=== PATIENT | female | born 1965 | race Caucasian/White ===

== ENCOUNTER 2017-01-05 09:58 | Inpatient (IN) | payer MEDICAID, OTHER ==
[2017-01-05 11:16] LABS: BASO % 0.4 % (0.0-2.0); EOS # 0.6 K/uL (0.0-0.7); HEMATOCRIT 38.9 % (34.0-47.0); LYMPH # 1.5 K/uL (1.0-4.3); LYMPH % 14.8 % (20.0-40.0); MEAN CORPUSCULAR HEMOGLOBIN 28.9 pg (27.0-31.0); MEAN CORPUSCULAR HGB CONC 31.7 g/dL (33.0-37.0); MEAN PLATELET VOLUME 9.4 fL (7.2-11.7); MONO # 0.7 K/uL (0.0-0.8); MONO % 6.8 % (0.0-10.0); RED CELL DISTRIBUTION WIDTH 14.2 % (11.5-14.5); WHITE BLOOD COUNT 9.8 K/uL (4.8-10.8)
[2017-01-05 11:17] LABS: MEAN CELL VOLUME 91.1 fL (81.0-99.0)
[2017-01-05 11:40] LABS: TROPONIN I 0.024 ng/mL (0.00-0.120)
[2017-01-05 11:44] LABS: ALB/GLOB RATIO 1.4 (1.0-2.1); BILIRUBIN,TOTAL 0.9 mg/dL (0.2-1.3); CALCIUM 9.2 mg/dl (8.6-10.4); POTASSIUM 5.8 mmol/L (3.6-5.2); TOTAL PROTEIN 6.6 g/dL (6.3-8.3)
--- NOTE | 2017-01-05 12:33 | C.PDOC ---
History Of Present Illness 51 yr old female presents with complaints of SOB, worse with exertion and laying flat for the past 1 week. Patient reports last hemodialysis was 9 days ago in [place]. Patient states she came to visit her mother in the [place] who is sick, and because of that she has not been dialyzed. Patient also reports of pressure in her chest. Patient denies fever/chills, cough, nausea, vomiting, diarrhea, abdominal pain. Time Seen by Provider: 01/05/17 10:55 Chief Complaint (Nursing): Shortness Of Breath History Per: Patient History/Exam Limitations: no limitations Onset/Duration Of Symptoms: Days (1 week) Current Symptoms Are (Timing): Still Present Current Respiratory Medications: See Home Med List Severity: Moderate Past Medical History Reviewed: Historical Data, Nursing Documentation, Vital Signs Vital Signs: Last Vital Signs Temp 98 F 01/08/17 18:45 Pulse 79 01/08/17 18:45 Resp 16 01/08/17 18:45 BP 124/90 01/08/17 18:45 Pulse Ox 97 01/08/17 18:45 - Medical History PMH: HTN, End Stage Renal Disease, Chronic Kidney Disease - [facility] Procedures DILATION OF LEFT CEPHALIC VEIN, PERCUTANEOUS APPROACH (11/22/15) PERFORMANCE OF URINARY FILTRATION, MULTIPLE (11/22/15) Family History: States: No Known Family Hx - Social History Hx Alcohol Use: No Hx Substance Use: No - Immunization History Hx Tetanus Toxoid Vaccination: No Hx Influenza Vaccination: No Hx Pneumococcal Vaccination: No Review Of Systems Except As Marked, All Systems Reviewed And Found Negative. Constitutional: Negative for: Fever, Chills Cardiovascular: Positive for: Edema, Other ((+) Chest pressure) Respiratory: Positive for: Shortness of Breath. Negative for: Cough Gastrointestinal: Negative for: Nausea, Vomiting, Abdominal Pain, Diarrhea Neurological: Negative for: Weakness, Numbness Physical Exam - Physical Exam Appears: Well, Non-toxic, Other ((+) Speaking in short sentences) Skin: Warm, Dry, No Rash Head: Normacephalic Oral Mucosa: Moist Cardiovascular: Rhythm Regular Respiratory: Rales (at bases B/L ), No Rhonchi, No Wheezing Gastrointestinal/Abdominal: Normal Exam, Bowel Sounds, Soft, No Tenderness Extremity: Normal ROM, No Pedal Edema, No Calf Tenderness, No Swelling Neurological/Psych: Oriented x3 ED Course And Treatment - Laboratory Results Result Diagrams: 01/08/17 08:51 01/08/17 08:51 ECG: Interpreted By Me, Viewed By Me ECG Rhythm: Sinus Rhythm ECG Interpretation: Abnormal Interpretation Of ECG: Normal axis. Q wave 3, V2 and V3. No ST changes. Rate From EC (BPM) O2 Sat by Pulse Oximetry: 100 (RA) Pulse Ox Interpretation: Normal - Radiology CXR: Interpreted by Me, Viewed By Me CXR Interpretation: Yes: Other ((+) Mild pulmonary congestion. No effusions.). No: Infiltrates Progress Note: PLAN: Blood work CXR, EKG, ordered and reviewed. Patient still makes urine, IV Lasix ordered for fluid overload. 12:55pm- Spoke with Dr. Aranda ([facility]), will speak to dialysis nurse to have patient dialyzed. - Physician Consult Information Physician Contacted: Faiza Connelly Outcome Of Conversation: Discussed patient with hospitalist, agrees with admission to their service for ESRD on HD needing dialysis, fluid overload, chf. Disposition - Disposition Disposition: HOSPITALIZED Disposition Time: 13:07 Condition: FAIR - Clinical Impression Clinical Impression: Fluid overload, ESRD (end stage renal disease) on dialysis - Scribe Statement The provider has reviewed the documentation as recorded by the Siddharthe Elvia Deleon Provider Attestation: All medical record entries made by the Wallyibe were at my direction and personally dictated by me. I have reviewed the chart and agree that the record accurately reflects my personal performance of the history, physical exam, medical decision making, and the department course for this patient. I have also personally directed, reviewed, and agree with the discharge instructions and disposition. Decision To Admit - Pt Status Changed To: Hospital Disposition Of: Inpatient - Admit Certification Admit to Inpatient:: After my assessment, the patient will require hospitalization for at least two midnights. This is because of the severity of symptoms shown, intensity of services needed, and/or the medical risk in this patient being treated as an outpatient. - InPatient: Physician Admission Certification: I certify that this patient requires 2 or more midnights of care for the following reason:: see notes - . Bed Request Type: Telemetry Admitting Physician: Faiza Connelly Patient Diagnosis: ESRD (end stage renal disease) on dialysis, Fluid overload
--- NOTE | 2017-01-05 14:02 | RAD ---
PROCEDURE: CHEST RADIOGRAPH, 1 VIEW HISTORY: SOB COMPARISON: Comparison made with chest radiograph 11/22/2015. FINDINGS: LUNGS: Poor inspiration with low lung volumes, crowded bronchovascular markings and minor bibasilar atelectasis. . Central pulmonary vasculature is minimally increased are also felt to be secondary to poor inspiration. PLEURA: No pneumothorax or pleural fluid seen. CARDIOVASCULAR: Normal. OSSEOUS STRUCTURES: Note made of small calcific density within the soft tissues adjacent to greater tuberosity left humerus consistent with calcific tendinitis. VISUALIZED UPPER ABDOMEN: Visualized upper abdomen appears unremarkable. OTHER FINDINGS: None. IMPRESSION: Poor inspiration with low lung volumes, crowded bronchovascular markings and minor bibasilar atelectasis.
--- NOTE | 2017-01-05 16:32 | CP.PCM.HP ---
<Augusta Pimentel - Last Filed: 01/05/17 18:23> History of Present Illness - History of Present Illness History of Present Illness: HPI: Patient is a 51 year old female with a history of "resolved htn", who presents to the ED with complaints of shortness of breath, chest pain with breathing, weakness, and leg pain/swelling for three days. She also reports she felt feverish and nausea last night. Patient also reports having decreased appetite because she feels full. Patient is on dialysis TTS, but has missed 9 days due to traveling (returned from [place] week ago and was in [place] visiting family ). Patient currently denies having abdominal pain, nausea, vomiting, fevers, and headaches. PMD: none PMHx: resolved HTN ("used to have HTN, but not anymore") SurgHx: fibroma 2002, appendectomy, hysterectomy FamHx: Mother- ESRD/dialysis, renal cysts, DM, HTN; Aunt/Uncle- " from renal problems" SocHx: denies tobacco, alcohol, and drug use Allergies: aspirin (throat swells) Medications: denies Present on Admission - Present on Admission Any Indicators Present on Admission: No Review of Systems - Constitutional Constitutional: Fever, Lethargy, Weakness. absent: Headache - EENT Ears: absent: Dizziness - Cardiovascular Cardiovascular: Chest Pain, Leg Edema. absent: Palpitations - Respiratory Respiratory: Dyspnea, Pain on Inspiration. absent: Cough, Excessive Mucous Production - Gastrointestinal Gastrointestinal: Nausea. absent: Abdominal Pain, Constipation, Diarrhea, Vomiting - Genitourinary Genitourinary: absent: Change in Urinary Stream - Neurological Neurological: Weakness. absent: Dizziness, Headaches - Endocrine Endocrine: absent: Fatigue, Palpitations Past Patient History - Infectious Disease Hx of Infectious Diseases: None - Past Medical History & Family History Past Medical History?: Yes - Past Social History Smoking Status: Never Smoked - CARDIAC Hx Hypertension: Yes - PULMONARY Hx Respiratory Disorders: No - NEUROLOGICAL Hx Neurological Disorder: No - HEENT Hx HEENT Problems: No - RENAL Hx Chronic Kidney Disease: Yes - ENDOCRINE/METABOLIC Hx Endocrine Disorders: No - HEMATOLOGICAL/ONCOLOGICAL Hx Blood Disorders: No - INTEGUMENTARY Hx Dermatological Problems: No - MUSCULOSKELETAL/RHEUMATOLOGICAL Hx Musculoskeletal Disorders: No Hx Falls: No - GASTROINTESTINAL Hx Gastrointestinal Disorders: No - GENITOURINARY/GYNECOLOGICAL Hx Genitourinary Disorders: No - PSYCHIATRIC Hx Substance Use: No - SURGICAL HISTORY Hx Surgeries: Yes Hx Hysterectomy: Yes - ANESTHESIA Hx Anesthesia: Yes Hx Anesthesia Reactions: No Hx Malignant Hyperthermia: No Meds Allergies/Adverse Reactions: Allergies Allergy/AdvReac Type Severity Reaction Status Date / Time aspirin Allergy Verified 01/05/17 10:07 Physical Exam - Constitutional Appears: No Acute Distress - Head Exam Head Exam: ATRAUMATIC, NORMAL INSPECTION - Eye Exam Eye Exam: EOMI, Normal appearance, PERRL - ENT Exam ENT Exam: Mucous Membranes Moist - Respiratory Exam Respiratory Exam: Clear to Auscultation Bilateral, NORMAL BREATHING PATTERN. absent: Rales, Rhonchi, Wheezes, Respiratory Distress - Cardiovascular Exam Cardiovascular Exam: REGULAR RHYTHM, +S1, +S2 - GI/Abdominal Exam GI & Abdominal Exam: Normal Bowel Sounds, Soft. absent: Distended, Firm, Tenderness - Extremities Exam Extremities exam: Positive for: pedal edema, pedal pulses present. Negative for : calf tenderness, tenderness Additional comments: AV fistula LUE - Neurological Exam Neurological exam: Alert, Oriented x3 - Psychiatric Exam Psychiatric exam: Normal Affect, Normal Mood - Skin Skin Exam: Dry, Intact, Normal Color, Warm Results - Vital Signs Recent Vital Signs: Last Vital Signs Temp 98 F 01/05/17 16:22 Pulse 71 01/05/17 16:22 Resp 18 01/05/17 16:22 BP 161/91 H 01/05/17 16:22 Pulse Ox 96 01/05/17 16:22 - Labs Result Diagrams: 01/05/17 11:05 01/05/17 11:05 Labs: Laboratory Results - last 24 hr 01/05/17 01/05/17 01/05/17 11:05 11:05 11:05 WBC 9.8 RBC 4.27 Hgb 12.3 Hct 38.9 MCV 91.1 D MCH 28.9 MCHC 31.7 L RDW 14.2 Plt Count 207 MPV 9.4 Neut % (Auto) 72.0 Lymph % (Auto) 14.8 L Carson % (Auto) 6.8 Eos % (Auto) 6.0 H Baso % (Auto) 0.4 Neut # 7.1 H Lymph # 1.5 Carson # 0.7 Eos # 0.6 Baso # 0.0 PT 11.4 INR 1.0 APTT 36 H Sodium 135 Potassium 5.8 H Chloride 102 Carbon Dioxide 14 L Anion Gap 24 H BUN 137 H* D Creatinine 18.9 H* Est GFR ( Amer) 2 Est GFR (Non-Af Amer) 2 Random Glucose 80 Calcium 9.2 Total Bilirubin 0.9 AST 24 ALT 20 Alkaline Phosphatase 376 H Total Creatine Kinase 50 CK-MB (Mass) 1.68 Troponin I 0.0240 NT-Pro-B Natriuret Pep 9960 H Total Protein 6.6 Albumin 3.8 Globulin 2.8 Albumin/Globulin Ratio 1.4 Assessment & Plan (1) End stage renal failure on dialysis Assessment and Plan: Patient scheduled for stat dialysis Follow up repeat labs post-dialysis BUN/Cr on admission: 137/18.9 Hyperkalemic, f/u repeat labs K+ on admission 5.8 Nephrology consulted- Dr. Smallwood, help appreciated Status: Acute (2) Chest pain Assessment and Plan: On Telemetry EKG: f/u results CXR: poor inspiration with low lung volumes, crowded bronchovascular marking and minor bibasilar atelectasis Troponin x1: negative F/u troponins x2 CKMB 1.68, CK 50, BNP 9960 Status: Acute (3) Prophylactic measure Assessment and Plan: SCDs Heparin 5000sc q8 Pepcid 20mg PO daily Heart healthy, renal diet Status: Acute <Faiza Connelly - Last Filed: 01/05/17 20:14> Results - Vital Signs Recent Vital Signs: Last Vital Signs Temp 97.5 F L 01/05/17 17:55 Pulse 93 H 01/05/17 19:36 Resp 20 01/05/17 19:36 BP 145/81 01/05/17 19:36 Pulse Ox 99 01/05/17 19:36 - Labs Result Diagrams: 01/05/17 11:05 01/05/17 11:05 Labs: Laboratory Results - last 24 hr 01/05/17 01/05/17 01/05/17 11:05 11:05 11:05 WBC 9.8 RBC 4.27 Hgb 12.3 Hct 38.9 MCV 91.1 D MCH 28.9 MCHC 31.7 L RDW 14.2 Plt Count 207 MPV 9.4 Neut % (Auto) 72.0 Lymph % (Auto) 14.8 L Carson % (Auto) 6.8 Eos % (Auto) 6.0 H Baso % (Auto) 0.4 Neut # 7.1 H Lymph # 1.5 Carson # 0.7 Eos # 0.6 Baso # 0.0 PT 11.4 INR 1.0 APTT 36 H Sodium 135 Potassium 5.8 H Chloride 102 Carbon Dioxide 14 L Anion Gap 24 H BUN 137 H* D Creatinine 18.9 H* Est GFR ( Amer) 2 Est GFR (Non-Af Amer) 2 Random Glucose 80 Calcium 9.2 Total Bilirubin 0.9 AST 24 ALT 20 Alkaline Phosphatase 376 H Total Creatine Kinase 50 CK-MB (Mass) 1.68 Troponin I 0.0240 NT-Pro-B Natriuret Pep 9960 H Total Protein 6.6 Albumin 3.8 Globulin 2.8 Albumin/Globulin Ratio 1.4 Attending/Attestation - Attestation I have personally seen and examined this patient.: Yes I have fully participated in the care of the patient.: Yes I have reviewed all pertinent clinical information: Yes Notes (Text): Seen and examined 1.acute pulmonary edema 2.Hyperkalemia 3.ESRD on HD 01/05/17 20:13
[2017-01-06] MEDS ORDERED: Tramadol 25 mg PO STA ×2 (00:55→19:08)
--- NOTE | 2017-01-06 00:57 | CON ---
ATTENDING PHYSICIAN: Dr. Connelly. HISTORY OF PRESENT ILLNESS: Ms. Cook is a 51-year-old female who is being seen for management of dialysis dependent renal failure. Ms. Cook has a history of polycystic kidney disease and hypertension who became dialysis dependent approximately 2 years ago. She was in the [place] and was visiting in [place] and her last treatment was approximately 2 weeks ago. Over the last several days, she has had increasing shortness of breath, anterior pleuritic sharp chest pain and intermittent nausea with no vomiting. She came to the emergency room this morning and was admitted. Her white count was 9800, hemoglobin 12.3, hematocrit 38.9, platelet count 207,000. Sodium 135, potassium 5.8, chloride 102, BUN 137, creatinine 18.9, calcium 9.2, total bili 0.9, AST of 24, ALT of 20, alk phos of 376, CPK of 50, CPK-MB 1.68, troponin 0.0240 and BNP of 9960. Albumin 3.8. Chest x-ray shows poor inspiration, low lung volumes, crowded bronchial vascular markings, and minor bibasilar atelectasis. PAST MEDICAL HISTORY: Please see the above. She denies myocardial infarction, stroke, or diabetes. She does have a history of recurrent renal calculi that preceded her dialysis. She denied hepatitis or HIV. ALLERGIES: SHE HAS AN ALLERGY TO ASPIRIN WHICH CAUSES A SHORTNESS OF BREATH AND THROAT SWELLING. She has been admitted to [facility] in the past. MEDICATIONS: She takes no medications. FAMILY HISTORY: Positive for polycystic kidney disease, hypertension, and end-stage renal disease. SOCIAL HISTORY: Negative for alcohol or drug abuse. She does not smoke. REVIEW OF SYSTEMS: Please see the above. She denied cough or hemoptysis. She does have intermittent upper abdominal pain and flank pain. She denies recent stone passage, told that her last stone passage was several months ago. She denies dysuria or gross hematuria at present. She has continuous bilateral hip and knee pain which she has told it is related to her dialysis. PHYSICAL EXAMINATION GENERAL: She is awake, alert, and in no acute distress. VITAL SIGNS: Her temperature was 98, blood pressure was 161/91 and pulse was 71. NECK: There was no jugular venous distention at 30 degrees. LUNGS: Clear. HEART: Rhythm is regular with grade 1 to 2/6 systolic ejection murmur throughout. ABDOMEN: Soft. She had right upper quadrant tenderness. There was no definite kidney or liver felt. EXTREMITIES: There was no presacral edema. There was 1 to 2+ leg edema. She moved all her extremities. IMPRESSION: End-stage renal disease, polycystic kidney disease, congestive heart failure, and uremic syndrome probable secondary hypoparathyroidism and renal osteodystrophy. RECOMMENDATIONS: We will schedule for slow dialysis this evening. We will follow up with dialysis on 01/06 with increased pump speed and ultrafiltration. Thank you for your kind referral. We will continue to follow with you. Dennis Aranda MD
[2017-01-06 08:42] LABS: BASO % 0.6 % (0.0-2.0); EOS # 0.6 K/uL (0.0-0.7); EOS % 7.5 % (0.0-4.0); HEMATOCRIT 38.9 % (34.0-47.0); LYMPH # 1.8 K/uL (1.0-4.3); LYMPH % 24.1 % (20.0-40.0); MEAN CELL VOLUME 89.8 fL (81.0-99.0); MEAN CORPUSCULAR HEMOGLOBIN 28.7 pg (27.0-31.0); MEAN PLATELET VOLUME 9.3 fL (7.2-11.7); MONO # 0.6 K/uL (0.0-0.8); MONO % 7.8 % (0.0-10.0); RED CELL DISTRIBUTION WIDTH 14.5 % (11.5-14.5); WHITE BLOOD COUNT 7.5 K/uL (4.8-10.8)
--- NOTE | 2017-01-06 09:41 | CP.PCM.PN ---
<Augusta Pimentel - Last Filed: 01/06/17 13:18> Subjective - Date & Time of Evaluation Date of Evaluation: 01/06/17 Time of Evaluation: 09:41 - Subjective Subjective: Medicine progress note with Dr. Keith Patient was seen and examined at bedside. Patient was sleeping when entered room. Patient reports feeling short of breath and pain with inspiration, nausea and a headache. Patient also stated the light bothered her and she was a little dizzy. Patient then vomited 2-3 times and reports having chest discomfort while vomiting. As vomiting subsided, chest discomfort resolved. Patient was given Zofran. Patient was revisited shortly after and reports feeling better, less nausea and headache was reduced. Patient was eating breakfast without difficulty. Patient denies having palpitations, abdominal pain, fevers, and changes in vision. Objective - Vital Signs/Intake and Output Vital Signs (last 24 hours): Temp Pulse Resp BP Pulse Ox 97.9 F 77 20 154/91 H 94 L 01/06/17 08:51 01/06/17 08:51 01/06/17 08:51 01/06/17 09:33 01/06/17 08:51 Intake and Output: 01/06/17 01/06/17 06:59 18:59 Intake Total 120 Balance 120 - Medications Medications: Current Medications Famotidine (Pepcid) 20 mg PO DAILY [facility] Heparin Sodium (Porcine) (Heparin) 5,000 units SC Q8 [facility] Last Admin: 01/06/17 05:55 Dose: 5,000 units Pneumococcal Polyvalent Vaccine (Pneumovax 23 Vaccine) 0.5 ml IM .ONCE ONE Stop: 01/08/17 10:01 - Labs Labs: 01/06/17 08:38 01/05/17 11:05 PT 11.4 SECONDS (9.7-12.2) 01/05/17 11:05 INR 1.0 01/05/17 11:05 APTT 36 SECONDS (21-34) H 01/05/17 11:05 - Additional Findings Additional findings: - Constitutional Appears: No Acute Distress - Head Exam Head Exam: ATRAUMATIC, NORMAL INSPECTION - Eye Exam Eye Exam: EOMI, Normal appearance, PERRL - ENT Exam ENT Exam: Mucous Membranes Moist - Respiratory Exam Respiratory Exam: Clear to Auscultation Bilateral, NORMAL BREATHING PATTERN. absent: Rales, Rhonchi, Wheezes, Respiratory Distress - Cardiovascular Exam Cardiovascular Exam: REGULAR RHYTHM, +S1, +S2 - GI/Abdominal Exam GI & Abdominal Exam: Normal Bowel Sounds, Soft. absent: Distended, Firm, Tenderness - Extremities Exam Extremities exam: Positive for: pedal edema, pedal pulses present. Negative for : calf tenderness, tenderness Additional comments: AV fistula LUE - Neurological Exam Neurological exam: Alert, Oriented x3 - Psychiatric Exam Psychiatric exam: Normal Affect, Normal Mood - Skin Skin Exam: Dry, Intact, Normal Color, Warm Assessment and Plan (1) End stage renal failure on dialysis Status: Acute (2) Chest pain Status: Acute (3) Prophylactic measure Status: Acute - Assessment and Plan (Free Text) Plan: (1) End stage renal failure on dialysis Assessment and Plan: Patient scheduled for stat dialysis Follow up repeat labs post-dialysis BUN/Cr on admission: 137/18.9 Hyperkalemic, K+ on admission 5.8 Nephrology consulted- Dr. Smallwood, help appreciated Repeat labs showed: BUN 76, Cr 13.4, K 4.9. Started Phoslo 667mg PO BIDCC Patient scheduled for dialysis again today, 01/06/17 Status: Acute (2) Chest pain Assessment and Plan: On Telemetry EKG: NSR@69bpm; septal infarct, age undetermined; pending official report CXR (01/05/17): poor inspiration with low lung volumes, crowded bronchovascular marking and minor bibasilar atelectasis Troponin x3: negative CKMB 1.68, CK 50, BNP 9960 Status: Acute (3) HTN Assessment and Plan: Patient reports having a hx of HTN, but not currently/doesn't take medications for HTN. Patient is currently hypertensive Started Norvasc 5mg PO daily Monitor Vitals (4) Short of breath Assessment and Plan: CXR (01/05/17): poor inspiration with low lung volumes, crowded bronchovascular marking and minor bibasilar atelectasis Repeat CXR on 01/07/17: f/u results O2 via nasal cannula as needed (5) Prophylactic measure Assessment and Plan: SCDs Heparin 5000sc q8 Pepcid 20mg PO daily Heart healthy, renal diet PT/OT <Jeyson Keith - Last Filed: 01/06/17 15:42> Objective - Vital Signs/Intake and Output Vital Signs (last 24 hours): Temp Pulse Resp BP Pulse Ox 97.6 F 71 16 136/89 94 L 01/06/17 15:00 01/06/17 13:55 01/06/17 13:55 01/06/17 15:00 01/06/17 08:51 Intake and Output: 01/06/17 01/06/17 06:59 18:59 Intake Total 120 Balance 120 - Medications Medications: Current Medications Amlodipine Besylate (Norvasc) 5 mg PO DAILY [facility] Last Admin: 01/06/17 12:58 Dose: 5 mg Calcium Acetate (Phoslo) 667 mg PO BIDCC [facility] Famotidine (Pepcid) 20 mg PO DAILY [facility] Last Admin: 01/06/17 09:57 Dose: 20 mg Heparin Sodium (Porcine) (Heparin) 5,000 units SC Q8 [facility] Last Admin: 01/06/17 13:04 Dose: 5,000 units Pneumococcal Polyvalent Vaccine (Pneumovax 23 Vaccine) 0.5 ml IM .ONCE ONE Stop: 01/08/17 10:01 - Labs Labs: 01/06/17 08:38 01/06/17 08:38 PT 11.4 SECONDS (9.7-12.2) 01/05/17 11:05 INR 1.0 01/05/17 11:05 APTT 36 SECONDS (21-34) H 01/05/17 11:05 Attending/Attestation - Attestation I have personally seen and examined this patient.: Yes I have fully participated in the care of the patient.: Yes I have reviewed all pertinent clinical information, including history, physical exam and plan: Yes Notes (Text): 01/06/17 15:42 Medical attending: Patient was seen and examined by me, agrees the above note by medical scheduler. Family member was present at bedside as well. Patient was okay with this. When I saw her she was not under any acute distress. As documented above in the resident note the patient has end-stage renal disease and she is [place] this country from [place]. She has not had hemodialysis in 9 days before coming to the hospital yesterday. She had one hemodialysis treatment yesterday. She's will hopefully get another hemodialysis treatment again today. She tells us that she feels better after hemodialysis yesterday, however she still short of breath Thank you very much, Jeyson Keith
[2017-01-06 09:49] LABS: ALB/GLOB RATIO 0.9 (1.0-2.1); BILIRUBIN,TOTAL 0.5 mg/dL (0.2-1.3); CALCIUM 8.6 mg/dl (8.6-10.4); POTASSIUM 4.9 mmol/L (3.6-5.2); TOTAL PROTEIN 6.6 g/dL (6.3-8.3)
--- NOTE | 2017-01-06 11:42 | CP.PCM.PN ---
Subjective - Date & Time of Evaluation Date of Evaluation: 01/06/17 Time of Evaluation: 11:40 - Subjective Subjective: stable dialysis 01/05 still with nausea, vomiting; BP moderately elevated Objective - Vital Signs/Intake and Output Vital Signs (last 24 hours): Temp Pulse Resp BP Pulse Ox 97.9 F 77 20 154/91 H 94 L 01/06/17 08:51 01/06/17 08:51 01/06/17 08:51 01/06/17 09:33 01/06/17 08:51 Intake and Output: 01/06/17 01/06/17 06:59 18:59 Intake Total 120 Balance 120 - Medications Medications: Current Medications Famotidine (Pepcid) 20 mg PO DAILY [facility] Last Admin: 01/06/17 09:57 Dose: 20 mg Heparin Sodium (Porcine) (Heparin) 5,000 units SC Q8 [facility] Last Admin: 01/06/17 05:55 Dose: 5,000 units Pneumococcal Polyvalent Vaccine (Pneumovax 23 Vaccine) 0.5 ml IM .ONCE ONE Stop: 01/08/17 10:01 - Labs Labs: 01/06/17 08:38 01/06/17 08:38 PT 11.4 SECONDS (9.7-12.2) 01/05/17 11:05 INR 1.0 01/05/17 11:05 APTT 36 SECONDS (21-34) H 01/05/17 11:05 - Constitutional Appears: No Acute Distress, Chronically Ill - Head Exam Head Exam: ATRAUMATIC, NORMAL INSPECTION - Eye Exam Eye Exam: EOMI, Normal appearance - Neck Exam Neck Exam: Normal Inspection. absent: Tenderness - Respiratory Exam Respiratory Exam: Clear to Ausculation Bilateral, NORMAL BREATHING PATTERN - Cardiovascular Exam Cardiovascular Exam: REGULAR RHYTHM, +S1 - GI/Abdominal Exam GI & Abdominal Exam: Soft. absent: Tenderness - Extremities Exam Extremities Exam: Normal Inspection. absent: Tenderness - Neurological Exam Neurological Exam: Alert, CN II-XII Intact - Skin Skin Exam: Dry, Warm Assessment and Plan (1) ADPKD (autosomal dominant polycystic kidney) Status: Acute (2) End stage renal failure on dialysis Status: Acute (3) HTN (hypertension) Status: Acute - Assessment and Plan (Free Text) Plan: repeat dialysis
[2017-01-06 13:37] LABS: PHOSPHOROUS 5.9 mg/dL (2.5-4.5)
--- NOTE | 2017-01-06 17:58 | CARD ---
APPROVED REPORT EKG Measurement Heart [id number] <Conclusion> Normal sinus rhythm with sinus arrhythmia Septal infarct, age undetermined Abnormal ECG
[2017-01-07 07:03] LABS: BASO % 0.5 % (0.0-2.0); EOS # 0.2 K/uL (0.0-0.7); EOS % 3.4 % (0.0-4.0); HEMATOCRIT 39.4 % (34.0-47.0); LYMPH % 15.4 % (20.0-40.0); MEAN CELL VOLUME 89.3 fL (81.0-99.0); MEAN CORPUSCULAR HEMOGLOBIN 28.8 pg (27.0-31.0); MEAN CORPUSCULAR HGB CONC 32.3 g/dL (33.0-37.0); MONO # 0.6 K/uL (0.0-0.8); MONO % 9.1 % (0.0-10.0); RED CELL DISTRIBUTION WIDTH 14.3 % (11.5-14.5); WHITE BLOOD COUNT 6.5 K/uL (4.8-10.8)
[2017-01-07 07:39] LABS: ALB/GLOB RATIO 1.3 (1.0-2.1); BILIRUBIN,TOTAL 0.9 mg/dL (0.2-1.3); CALCIUM 8.4 mg/dl (8.6-10.4); POTASSIUM 4.3 mmol/L (3.6-5.2); TOTAL PROTEIN 6.3 g/dL (6.3-8.3)
--- NOTE | 2017-01-07 09:15 | CP.PCM.PN ---
<Augusta Pimentel - Last Filed: 01/07/17 12:52> Subjective - Date & Time of Evaluation Date of Evaluation: 01/07/17 Time of Evaluation: 09:12 - Subjective Subjective: Medicine Progress note for Dr. Keith Patient was seen and examined at bedside in no acute distress. Patient reports feeling a little better than yesterday but still has a occasional sob, headache , nausea, and dizziness. She vomited twice last night, but none this morning. She has a decreased appetite due to her nausea. Patient denies having chest pain , abdominal pain, fevers, and shortness of breath. Objective - Vital Signs/Intake and Output Vital Signs (last 24 hours): Temp Pulse Resp BP Pulse Ox 98 F 86 20 154/78 H 96 01/07/17 08:02 01/07/17 08:02 01/07/17 08:02 01/07/17 08:02 01/07/17 08:02 - Medications Medications: Current Medications Amlodipine Besylate (Norvasc) 5 mg PO DAILY [facility] Last Admin: 01/06/17 12:58 Dose: 5 mg Calcium Acetate (Phoslo) 667 mg PO BIDCC [facility] Last Admin: 01/07/17 08:19 Dose: 667 mg Famotidine (Pepcid) 20 mg PO DAILY [facility] Last Admin: 01/06/17 09:57 Dose: 20 mg Heparin Sodium (Porcine) (Heparin) 5,000 units SC Q8 [facility] Last Admin: 01/07/17 05:22 Dose: 5,000 units Ondansetron HCl (Zofran Inj) 4 mg IVP Q12 PRN PRN Reason: Nausea/Vomiting Pneumococcal Polyvalent Vaccine (Pneumovax 23 Vaccine) 0.5 ml IM .ONCE ONE Stop: 01/08/17 10:01 - Labs Labs: 01/07/17 06:54 01/07/17 06:54 PT 11.4 SECONDS (9.7-12.2) 01/05/17 11:05 INR 1.0 01/05/17 11:05 APTT 36 SECONDS (21-34) H 01/05/17 11:05 - Additional Findings Additional findings: - Constitutional Appears: No Acute Distress - Head Exam Head Exam: ATRAUMATIC, NORMAL INSPECTION - Eye Exam Eye Exam: EOMI, Normal appearance, PERRL - ENT Exam ENT Exam: Mucous Membranes Moist - Respiratory Exam Respiratory Exam: Clear to Auscultation Bilateral, NORMAL BREATHING PATTERN. absent: Rales, Rhonchi, Wheezes, Respiratory Distress - Cardiovascular Exam Cardiovascular Exam: REGULAR RHYTHM, +S1, +S2 - GI/Abdominal Exam GI & Abdominal Exam: Normal Bowel Sounds, Soft. absent: Distended, Firm, Tenderness - Extremities Exam Extremities exam: Positive for: pedal edema, pedal pulses present. Negative for : calf tenderness, tenderness Additional comments: AV fistula LUE - Neurological Exam Neurological exam: Alert, Oriented x3 - Psychiatric Exam Psychiatric exam: Normal Affect, Normal Mood - Skin Skin Exam: Dry, Intact, Normal Color, Warm Assessment and Plan (1) End stage renal failure on dialysis Status: Acute (2) Chest pain Status: Acute (3) Nausea Status: Acute (4) Prophylactic measure Status: Acute - Assessment and Plan (Free Text) Plan: (1) End stage renal failure on dialysis Assessment and Plan: * Patient scheduled for stat dialysis * Follow up repeat labs post-dialysis * BUN/Cr on admission: 137/18.9 * Hyperkalemic, K+ on admission 5.8 * Nephrology consulted- Dr. Smallwood, help appreciated * Repeat labs on 01/06 showed: BUN 76, Cr 13.4, K 4.9. * Repeat labs on 01/07 showed: BUN 33, Cr 7.6, K 4.3. * Started Phoslo 667mg PO BIDCC * Patient had dialysis on 01/06/17 * Patient scheduled for next dialysis on 01/08/17 Status: Acute (2) Chest pain Assessment and Plan: * On Telemetry * EKG: NSR@69bpm; septal infarct, age undetermined; pending official report * CXR (01/05/17): poor inspiration with low lung volumes, crowded bronchovascular marking and minor bibasilar atelectasis * Troponin x3: negative * CKMB 1.68, CK 50, BNP 9960 Status: Acute (3) HTN Assessment and Plan: * Patient reports having a hx of HTN, but not currently/doesn't take medications for HTN. * Patient is currently hypertensive * Started Norvasc 5mg PO daily * Monitor Vitals (4) Short of breath Assessment and Plan: * CXR (01/05/17): poor inspiration with low lung volumes, crowded bronchovascular marking and minor bibasilar atelectasis * Repeat CXR on 01/07/17: f/u results * O2 via nasal cannula as needed (5) Nausea Assessment and Plan: * Zofran 4mg IV Q12 prn (6) Prophylactic measure Assessment and Plan: * SCDs * Heparin 5000sc q8 * Pepcid 20mg PO daily * Heart healthy, renal diet * PT/OT <Jeyson Keith H - Last Filed: 01/07/17 14:46> Objective - Vital Signs/Intake and Output Vital Signs (last 24 hours): Temp Pulse Resp BP Pulse Ox 98 F 86 20 154/78 H 96 01/07/17 08:02 01/07/17 08:02 01/07/17 08:02 01/07/17 08:02 01/07/17 08:02 - Medications Medications: Current Medications Amlodipine Besylate (Norvasc) 5 mg PO DAILY [facility] Last Admin: 01/07/17 10:33 Dose: 5 mg Calcium Acetate (Phoslo) 667 mg PO BIDCC [facility] Last Admin: 01/07/17 08:19 Dose: 667 mg Famotidine (Pepcid) 20 mg PO DAILY [facility] Last Admin: 01/07/17 10:33 Dose: 20 mg Heparin Sodium (Porcine) (Heparin) 5,000 units SC Q8 [facility] Last Admin: 01/07/17 14:22 Dose: 5,000 units Ondansetron HCl (Zofran Inj) 4 mg IVP Q12 PRN PRN Reason: Nausea/Vomiting Last Admin: 01/07/17 10:34 Dose: 4 mg Pneumococcal Polyvalent Vaccine (Pneumovax 23 Vaccine) 0.5 ml IM .ONCE ONE Stop: 01/08/17 10:01 - Labs Labs: 01/07/17 06:54 01/07/17 06:54 PT 11.4 SECONDS (9.7-12.2) 01/05/17 11:05 INR 1.0 01/05/17 11:05 APTT 36 SECONDS (21-34) H 01/05/17 11:05 Attending/Attestation - Attestation I have personally seen and examined this patient.: Yes I have fully participated in the care of the patient.: Yes I have reviewed all pertinent clinical information, including history, physical exam and plan: Yes Notes (Text): 01/07/17 14:46 Medical attending: Patient was seen and examined by me, agrees the above note by medical billing and coding specialist. This patient is known to us from previous admissions. The last admission I reviewed the note showed that she is from the [place] and she did not qualify for hemodialysis outpatient here in [place]. She was discharged when was in the [place] for some time when she then came back here The patient has had 2 sessions of hemodialysis so far. From what I understand the third one is pending for tomorrow. Had to bring a poultice machine operator in to explained to the patient have a conversation that it seems likely she will not qualify for Medicaid or Medicare and that there might not be an outpatient dialysis that is willing to take her. She might have to return to her home country sooner rather than later. I understand that she is taking about staying until February. But will see Thank you very much, Jeyson Keith
--- NOTE | 2017-01-07 11:27 | CP.PCM.PN ---
Subjective - Date & Time of Evaluation Date of Evaluation: 01/07/17 Time of Evaluation: 11:24 - Subjective Subjective: seen and examined c/o severe headache, feels cold breathing improved at baseline denies any chest pain sob nausea vomiting diarrhea dizziness weakness rash Objective - Vital Signs/Intake and Output Vital Signs (last 24 hours): Temp Pulse Resp BP Pulse Ox 98 F 86 20 154/78 H 96 01/07/17 08:02 01/07/17 08:02 01/07/17 08:02 01/07/17 08:02 01/07/17 08:02 - Medications Medications: Current Medications Amlodipine Besylate (Norvasc) 5 mg PO DAILY [facility] Last Admin: 01/07/17 10:33 Dose: 5 mg Calcium Acetate (Phoslo) 667 mg PO BIDCC [facility] Last Admin: 01/07/17 08:19 Dose: 667 mg Famotidine (Pepcid) 20 mg PO DAILY [facility] Last Admin: 01/07/17 10:33 Dose: 20 mg Heparin Sodium (Porcine) (Heparin) 5,000 units SC Q8 [facility] Last Admin: 01/07/17 05:22 Dose: 5,000 units Ondansetron HCl (Zofran Inj) 4 mg IVP Q12 PRN PRN Reason: Nausea/Vomiting Last Admin: 01/07/17 10:34 Dose: 4 mg Pneumococcal Polyvalent Vaccine (Pneumovax 23 Vaccine) 0.5 ml IM .ONCE ONE Stop: 01/08/17 10:01 - Labs Labs: 01/07/17 06:54 01/07/17 06:54 PT 11.4 SECONDS (9.7-12.2) 01/05/17 11:05 INR 1.0 01/05/17 11:05 APTT 36 SECONDS (21-34) H 01/05/17 11:05 - Constitutional Appears: Non-toxic, No Acute Distress - Eye Exam Eye Exam: Normal appearance - ENT Exam ENT Exam: Mucous Membranes Moist, Normal Exam - Neck Exam Neck Exam: Normal Inspection - Respiratory Exam Respiratory Exam: Clear to Ausculation Bilateral, NORMAL BREATHING PATTERN - Cardiovascular Exam Cardiovascular Exam: REGULAR RHYTHM, RRR (lue avf) - GI/Abdominal Exam GI & Abdominal Exam: Distended, Soft, Normal Bowel Sounds - Extremities Exam Extremities Exam: Normal Inspection - Neurological Exam Neurological Exam: Alert, Awake, Oriented x3 - Psychiatric Exam Psychiatric exam: Normal Affect - Skin Skin Exam: Dry, Warm Assessment and Plan (1) ADPKD (autosomal dominant polycystic kidney) Status: Acute (2) End stage renal failure on dialysis Status: Acute (3) Fluid overload Status: Acute (4) HTN (hypertension) Status: Acute - Assessment and Plan (Free Text) Assessment: maintain hd [facility]wf outpt placement
--- NOTE | 2017-01-07 14:12 | RAD ---
HISTORY: sob COMPARISON: Chest radiograph dated 01/05/2017. TECHNIQUE: Chest PA and lateral FINDINGS: LUNGS: No active pulmonary disease. PLEURA: No significant pleural effusion identified. No pneumothorax apparent. CARDIOVASCULAR: Normal. OSSEOUS STRUCTURES: No significant abnormalities. VISUALIZED UPPER ABDOMEN: Normal. OTHER FINDINGS: None. IMPRESSION: No active disease.
[2017-01-08 09:06] LABS: BASO % 0.7 % (0.0-2.0); EOS # 0.5 K/uL (0.0-0.7); HEMATOCRIT 39.6 % (34.0-47.0); LYMPH % 27.5 % (20.0-40.0); MEAN CELL VOLUME 89.6 fL (81.0-99.0); MEAN CORPUSCULAR HEMOGLOBIN 28.4 pg (27.0-31.0); MEAN CORPUSCULAR HGB CONC 31.6 g/dL (33.0-37.0); MEAN PLATELET VOLUME 9.4 fL (7.2-11.7); MONO # 0.7 K/uL (0.0-0.8); MONO % 9.9 % (0.0-10.0); NRBC % 0.1 % (0.0-2.0); RED CELL DISTRIBUTION WIDTH 14.2 % (11.5-14.5); WHITE BLOOD COUNT 7.2 K/uL (4.8-10.8)
[2017-01-08 09:17] LABS: ALB/GLOB RATIO 1.3 (1.0-2.1); BILIRUBIN,TOTAL 0.9 mg/dL (0.2-1.3); CALCIUM 8.7 mg/dl (8.6-10.4); POTASSIUM 4.8 mmol/L (3.6-5.2)
[2017-01-08] MEDS ORDERED: Pneumococcal 23-Valent Vaccine IM ONE (10:00)
--- NOTE | 2017-01-08 10:44 | CP.PCM.DIS ---
Addendum entered and electronically signed by Augusta Pimentel 01/08/17 16:31 : Addendum to Hospital Course: Patient was not started on KARI inhibitor or ARB due to unreliable dialysis. Original Note: <Augusta Pimentel - Last Filed: 01/08/17 15:54> Provider - Provider Date of Admission: 01/05/17 13:07 Attending physician: Faiza Connelly MD Consults: Nephrology- Dr. Smallwood Time Spent in preparation of Discharge (in minutes): 45 Diagnosis - Discharge Diagnosis (1) End stage renal failure on dialysis Status: Acute (2) Chest pain Status: Acute (3) Nausea Status: Acute Hospital Course - Lab Results Lab Results: Most Recent Lab Values WBC 7.2 K/uL (4.8-10.8) 01/08/17 08:51 RBC 4.42 Mil/uL (3.80-5.20) 01/08/17 08:51 Hgb 12.5 g/dL (11.0-16.0) 01/08/17 08:51 Hct 39.6 % (34.0-47.0) 01/08/17 08:51 MCV 89.6 fL (81.0-99.0) 01/08/17 08:51 MCH 28.4 pg (27.0-31.0) 01/08/17 08:51 MCHC 31.6 g/dL (33.0-37.0) L 01/08/17 08:51 RDW 14.2 % (11.5-14.5) 01/08/17 08:51 Plt Count 214 K/uL (130-400) 01/08/17 08:51 MPV 9.4 fL (7.2-11.7) 01/08/17 08:51 Neut % (Auto) 54.9 % (50.0-75.0) 01/08/17 08:51 Lymph % (Auto) 27.5 % (20.0-40.0) 01/08/17 08:51 [place] % (Auto) 9.9 % (0.0-10.0) 01/08/17 08:51 Eos % (Auto) 7.0 % (0.0-4.0) H 01/08/17 08:51 Baso % (Auto) 0.7 % (0.0-2.0) 01/08/17 08:51 Neut # 3.9 K/uL (1.8-7.0) 01/08/17 08:51 Lymph # 2.0 K/uL (1.0-4.3) 01/08/17 08:51 [place] # 0.7 K/uL (0.0-0.8) 01/08/17 08:51 Eos # 0.5 K/uL (0.0-0.7) 01/08/17 08:51 Baso # 0.0 K/uL (0.0-0.2) 01/08/17 08:51 PT 11.4 SECONDS (9.7-12.2) 01/05/17 11:05 INR 1.0 01/05/17 11:05 APTT 36 SECONDS (21-34) H 01/05/17 11:05 Sodium 135 mmol/L (132-148) 01/08/17 08:51 Potassium 4.8 mmol/L (3.6-5.2) 01/08/17 08:51 Chloride 95 mmol/L (98-107) L 01/08/17 08:51 Carbon Dioxide 27 mmol/L (22-30) 01/08/17 08:51 Anion Gap 17 (10-20) 01/08/17 08:51 BUN 45 mg/dL (7-17) H 01/08/17 08:51 Creatinine 9.8 mg/dL (0.7-1.2) H* D 01/08/17 08:51 Est GFR ( Amer) 5 01/08/17 08:51 Est GFR (Non-Af Amer) 4 01/08/17 08:51 Random Glucose 75 mg/dL (65-105) 01/08/17 08:51 Calcium 8.7 mg/dl (8.6-10.4) 01/08/17 08:51 Phosphorus 5.9 mg/dL (2.5-4.5) H 01/06/17 08:38 Total Bilirubin 0.9 mg/dL (0.2-1.3) 01/08/17 08:51 AST 32 U/L (14-36) 01/08/17 08:51 ALT 37 U/L (9-52) 01/08/17 08:51 Alkaline Phosphatase 370 U/L (38-126) H 01/08/17 08:51 Total Creatine Kinase 50 U/L (30-135) 01/05/17 11:05 CK-MB (Mass) 1.68 ng/mL (0.0-3.38) 01/05/17 11:05 Troponin I 0.0250 ng/mL (0.00-0.120) 01/06/17 01:38 NT-Pro-B Natriuret Pep 9960 pg/mL (0-900) H 01/05/17 11:05 Total Protein 6.0 g/dL (6.3-8.3) L 01/08/17 08:51 Albumin 3.4 g/dL (3.5-5.0) L 01/08/17 08:51 Globulin 2.6 gm/dL (2.2-3.9) 01/08/17 08:51 Albumin/Globulin Ratio 1.3 (1.0-2.1) 01/08/17 08:51 Hep Bs Antigen Negative (NEGATIVE) 01/05/17 19:53 - Hospital Course Hospital Course: HPI: Patient is a 51 year old female with a history of "resolved htn", who presents to the ED with complaints of shortness of breath, chest pain with breathing, weakness, and leg pain/swelling for three days. She also reports she felt feverish and nausea last night. Patient also reports having decreased appetite because she feels full. Patient is on dialysis TTS, but has missed 9 days due to traveling (returned from 1 week ago and was in [place] visiting family ). Patient currently denies having abdominal pain, nausea, vomiting, fevers, and headaches. PMD: none PMHx: resolved HTN ("used to have HTN, but not anymore") SurgHx: fibroma 2002, appendectomy, hysterectomy FamHx: Mother- ESRD/dialysis, renal cysts, DM, HTN; Aunt/Uncle- " from renal problems" SocHx: denies tobacco, alcohol, and drug use Allergies: aspirin (throat swells) Medications: denies Hospital Course: Patient was admitted on 01/05/17 for ESRD and stat dialysis. In the ED, the patient had labs drawn, placed on telemetry, and chest xray performed. Cardiac enzymes were negative times three, EKG showed normal sinus rhythm, chest xray showed poor inspiration with low lung volumes, crowded bronchovascular marking and minor bibasilar atelectasis, and labs showed elevated BUN (137), creatinine (18.9), and potassium (5.8). Patient went for immediate dialysis. Post-dialysis labs were drawn and showed improving BUN/Cr, and potassium within normal limits. Patient then developed headache, photophobia , nausea, and vomiting. Patient was given Zofran which helped. Patient was given Ultram overnight for her headaches. Patient was also found to be hypertensive and was started on Norvasc. Patient had a total of three dialysis sessions (01/05/17, 01/06/17, & 01/08/17). Labs and vitals continued to improve. Nausea and headache improved and and vomiting resolved. Patient was seen and examined today in no acute distress. Patient reports feeling a little better. Patient has her third session of dialysis today, 01/08/17. Patient should continue dialysis schedule (MWF). Importance of dialysis was discussed and understood by patient. Patient understand that she should return to any ED if needed. Patient is stable for discharge to home after dialysis is complete. This is a brief summary of the hospital course. Please see EMR for more details. Discharge Exam - Head Exam Head Exam: ATRAUMATIC, NORMAL INSPECTION - Eye Exam Eye Exam: EOMI, Normal appearance - ENT Exam ENT Exam: Mucous Membranes Moist - Respiratory Exam Respiratory Exam: Clear to PA & Lateral, NORMAL BREATHING PATTERN, UNREMARKABLE. absent: Rales, Rhonchi, Wheezes, Respiratory Distress - Cardiovascular Exam Cardiovascular Exam: REGULAR RHYTHM, +S1, +S2 - GI/Abdominal Exam GI & Abdominal Exam: Normal Bowel Sounds, Soft, Unremarkable. absent: Distended , Firm, Tenderness - Extremities Exam Extremities exam: normal inspection - Neurological Exam Neurological exam: Alert, Oriented x3 - Psychiatric Exam Psychiatric exam: Normal Affect, Normal Mood - Skin Skin Exam: Dry, Intact, Normal Color, Warm Discharge Plan - Discharge Medications Prescriptions: amLODIPine [Norvasc] 5 mg PO DAILY #30 tab Calcium Acetate [Phoslo] 667 mg PO BIDCC #30 tab - Follow Up Plan Condition: GOOD Disposition: HOME/ ROUTINE Instructions: Dialysis Diet (DC), Acute Nausea and Vomiting (DC) Additional Instructions: Patient is stable for discharge to home after completion of dialysis. Patient must continue the following medications listed below. Norvasc 5mg PO daily- take 1 tablet by mouth daily Phoslo 667mg PO BIDCC- take 1 tablet by mouth twice a day with food. Patient should follow up as outpatient with PMD within one week of discharge. Discussed dialysis schedule (MWF) and importance of continuing dialysis with patient who understood. Advised patient to return to any emergency department if her symptoms reoccur or worsen. <Jeyson Keith - Last Filed: 01/08/17 17:57> Provider - Provider Date of Admission: 01/05/17 13:07 Attending physician: Faiza Connelly MD Hospital Course - Lab Results Lab Results: Most Recent Lab Values WBC 7.2 K/uL (4.8-10.8) 01/08/17 08:51 RBC 4.42 Mil/uL (3.80-5.20) 01/08/17 08:51 Hgb 12.5 g/dL (11.0-16.0) 01/08/17 08:51 Hct 39.6 % (34.0-47.0) 01/08/17 08:51 MCV 89.6 fL (81.0-99.0) 01/08/17 08:51 MCH 28.4 pg (27.0-31.0) 01/08/17 08:51 MCHC 31.6 g/dL (33.0-37.0) L 01/08/17 08:51 RDW 14.2 % (11.5-14.5) 01/08/17 08:51 Plt Count 214 K/uL (130-400) 01/08/17 08:51 MPV 9.4 fL (7.2-11.7) 01/08/17 08:51 Neut % (Auto) 54.9 % (50.0-75.0) 01/08/17 08:51 Lymph % (Auto) 27.5 % (20.0-40.0) 01/08/17 08:51 [place] % (Auto) 9.9 % (0.0-10.0) 01/08/17 08:51 Eos % (Auto) 7.0 % (0.0-4.0) H 01/08/17 08:51 Baso % (Auto) 0.7 % (0.0-2.0) 01/08/17 08:51 Neut # 3.9 K/uL (1.8-7.0) 01/08/17 08:51 Lymph # 2.0 K/uL (1.0-4.3) 01/08/17 08:51 [place] # 0.7 K/uL (0.0-0.8) 01/08/17 08:51 Eos # 0.5 K/uL (0.0-0.7) 01/08/17 08:51 Baso # 0.0 K/uL (0.0-0.2) 01/08/17 08:51 PT 11.4 SECONDS (9.7-12.2) 01/05/17 11:05 INR 1.0 01/05/17 11:05 APTT 36 SECONDS (21-34) H 01/05/17 11:05 Sodium 135 mmol/L (132-148) 01/08/17 08:51 Potassium 4.8 mmol/L (3.6-5.2) 01/08/17 08:51 Chloride 95 mmol/L (98-107) L 01/08/17 08:51 Carbon Dioxide 27 mmol/L (22-30) 01/08/17 08:51 Anion Gap 17 (10-20) 01/08/17 08:51 BUN 45 mg/dL (7-17) H 01/08/17 08:51 Creatinine 9.8 mg/dL (0.7-1.2) H* D 01/08/17 08:51 Est GFR ( Amer) 5 01/08/17 08:51 Est GFR (Non-Af Amer) 4 01/08/17 08:51 Random Glucose 75 mg/dL (65-105) 01/08/17 08:51 Calcium 8.7 mg/dl (8.6-10.4) 01/08/17 08:51 Phosphorus 5.9 mg/dL (2.5-4.5) H 01/06/17 08:38 Total Bilirubin 0.9 mg/dL (0.2-1.3) 01/08/17 08:51 AST 32 U/L (14-36) 01/08/17 08:51 ALT 37 U/L (9-52) 01/08/17 08:51 Alkaline Phosphatase 370 U/L (38-126) H 01/08/17 08:51 Total Creatine Kinase 50 U/L (30-135) 01/05/17 11:05 CK-MB (Mass) 1.68 ng/mL (0.0-3.38) 01/05/17 11:05 Troponin I 0.0250 ng/mL (0.00-0.120) 01/06/17 01:38 NT-Pro-B Natriuret Pep 9960 pg/mL (0-900) H 01/05/17 11:05 Total Protein 6.0 g/dL (6.3-8.3) L 01/08/17 08:51 Albumin 3.4 g/dL (3.5-5.0) L 01/08/17 08:51 Globulin 2.6 gm/dL (2.2-3.9) 01/08/17 08:51 Albumin/Globulin Ratio 1.3 (1.0-2.1) 01/08/17 08:51 Hep Bs Antigen Negative (NEGATIVE) 01/05/17 19:53 Attending/Attestation - Attestation I have personally seen and examined this patient.: Yes I have fully participated in the care of the patient.: Yes I have reviewed all pertinent clinical information, including history, physical exam and plan: Yes Notes (Text): 01/08/17 17:54 Medical Attending: Patient was seen and examined by me. Agree with marianne lee note by the resident I had a kennel hand via the computer system to communicate with the patient. I explained that later on in the day after she gets HD that we would be discharging her As she is not a citizen of this country and only visiting - she cannot qualify for outpatient HD and so as I explained to the patient that if she intends to stay into February that she will eventually will have to come back to any hospital ER for additional HD until she returns to the [facility]. thank you Jeyson Keith
--- NOTE | 2017-01-08 13:01 | CP.PCM.PN ---
Subjective - Date & Time of Evaluation Date of Evaluation: 01/08/17 Time of Evaluation: 12:59 - Subjective Subjective: alert; stahble dialysis 01/07 Feels better Discharge plans noted Scheduled for dialysis today Objective - Vital Signs/Intake and Output Vital Signs (last 24 hours): Temp Pulse Resp BP Pulse Ox 97.8 F 69 20 145/84 96 01/08/17 08:39 01/08/17 08:39 01/08/17 08:39 01/08/17 08:39 01/08/17 08:39 - Medications Medications: Current Medications Amlodipine Besylate (Norvasc) 5 mg PO DAILY [facility] Last Admin: 01/08/17 10:01 Dose: 5 mg Calcium Acetate (Phoslo) 667 mg PO BIDCC [facility] Last Admin: 01/08/17 07:59 Dose: 667 mg Famotidine (Pepcid) 20 mg PO DAILY [facility] Last Admin: 01/08/17 10:01 Dose: 20 mg Heparin Sodium (Porcine) (Heparin) 5,000 units SC Q8 [facility] Last Admin: 01/08/17 05:47 Dose: 5,000 units Ondansetron HCl (Zofran Inj) 4 mg IVP Q6H PRN PRN Reason: Nausea/Vomiting Last Admin: 01/07/17 21:28 Dose: 4 mg - Labs Labs: 01/08/17 08:51 01/08/17 08:51 PT 11.4 SECONDS (9.7-12.2) 01/05/17 11:05 INR 1.0 01/05/17 11:05 APTT 36 SECONDS (21-34) H 01/05/17 11:05 - Constitutional Appears: No Acute Distress, Chronically Ill - Head Exam Head Exam: ATRAUMATIC, NORMAL INSPECTION - Eye Exam Eye Exam: EOMI, Normal appearance - Neck Exam Neck Exam: Normal Inspection. absent: Tenderness - Respiratory Exam Respiratory Exam: Clear to Ausculation Bilateral, NORMAL BREATHING PATTERN - Cardiovascular Exam Cardiovascular Exam: REGULAR RHYTHM, +S1 - GI/Abdominal Exam GI & Abdominal Exam: Soft. absent: Tenderness - Extremities Exam Extremities Exam: Normal Inspection. absent: Tenderness - Neurological Exam Neurological Exam: Alert, CN II-XII Intact - Skin Skin Exam: Dry, Warm Assessment and Plan (1) ADPKD (autosomal dominant polycystic kidney) Status: Acute (2) End stage renal failure on dialysis Status: Acute (3) HTN (hypertension) Status: Acute - Assessment and Plan (Free Text) Plan: dialysis MWF discharge as per medicine
[2017-01-08 16:55] VITALS: TEMP 98
[2017-01-08 20:01] VITALS: BP 124/90; PULSE 79; RESP 16
[2017-01-09 15:57] VITALS: O2SAT 100
== END 2017-01-08 21:28 | disposition home or self-care (01) | DRG 640 ==
LOC: C.ER 09:58 → C.9E 13:07 → C.5S 23:03 → UNDODISIN 01-08 20:20
PROVIDERS: ADMIT Internal Medicine; ATTEND Internal Medicine
PROC: 5A1D70Z Performance of Urinary Filtration, Intermittent, Less than 6 Hours Per Day (ICD-10-PCS; principal; 2017-01-05)
DX: E87.79 Other fluid overload (principal); N18.6 End stage renal disease; I13.2 Hypertensive heart and chronic kidney disease with heart failure and with stage 5 chronic kidney disease, or end stage renal disease; Q61.2 Polycystic kidney, adult type; N25.0 Renal osteodystrophy; E20.8 Other hypoparathyroidism; E87.5 Hyperkalemia; I50.9 Heart failure, unspecified; Z87.442 Personal history of urinary calculi; Z90.710 Acquired absence of both cervix and uterus; Z99.2 Dependence on renal dialysis; Z91.15 Patient's noncompliance with renal dialysis

== ENCOUNTER 2017-01-12 09:43 | Inpatient (IN) | payer MEDICAID, OTHER ==
--- NOTE | 2017-01-12 10:45 | C.PDOC ---
History Of Present Illness 51-year-old female, visiting from [facility] since 12/23, PMHx includes ESRD (Dialysis //Fri) presents to the emergency department with complaints of shortness of breath, associated with chest tightness that started this morning. No associated nausea/vomiting, chills, cough, fever, or any other associated symptoms. No other complaints at this time. Patients last dialysis five days ago. Time Seen by Provider: 01/12/17 10:06 Chief Complaint (Nursing): Shortness Of Breath History Per: Patient History/Exam Limitations: no limitations Onset/Duration Of Symptoms: Hrs Current Symptoms Are (Timing): Still Present Past Medical History Reviewed: Historical Data, Nursing Documentation, Vital Signs Vital Signs: Last Vital Signs Temp 97.6 F 01/12/17 15:45 Pulse 81 01/12/17 18:06 Resp 16 01/12/17 18:06 BP 141/95 H 01/12/17 18:06 Pulse Ox 95 01/12/17 18:06 - Medical History PMH: HTN, End Stage Renal Disease, Chronic Kidney Disease Surgical History: Appendectomy - [facility] (01/05/17) DILATION OF LEFT CEPHALIC VEIN, PERCUTANEOUS APPROACH (11/22/15) PERFORMANCE OF URINARY FILTRATION, MULTIPLE (11/22/15) Family History: States: No Known Family Hx - Social History Hx Alcohol Use: No Hx Substance Use: No - Immunization History Hx Tetanus Toxoid Vaccination: No Hx Influenza Vaccination: Yes (2016) Hx Pneumococcal Vaccination: No Review Of Systems Except As Marked, All Systems Reviewed And Found Negative. Constitutional: Negative for: Fever, Chills Respiratory: Positive for: Shortness of Breath Gastrointestinal: Negative for: Nausea, Vomiting, Abdominal Pain Musculoskeletal: Negative for: Back Pain Neurological: Negative for: Weakness, Numbness, Headache, Dizziness Physical Exam - Physical Exam Appears: Non-toxic, No Acute Distress, Other (speaking in full sentences) Skin: Warm, Dry, No Rash Head: Atraumatic, Normacephalic Eye(s): bilateral: Normal Inspection, PERRL Nose: Normal Oral Mucosa: Moist Lips: Normal Appearing Neck: Normal ROM Chest: Symmetrical Cardiovascular: Rhythm Regular, No Murmur Respiratory: No Accessory Muscle Use (Diminished breath sounds bilaterally.) Extremity: Other (Palpable thrill in AV fistula: left upper extremity.) Neurological/Psych: Oriented x3, Normal Speech ED Course And Treatment - Laboratory Results Result Diagrams: 01/12/17 11:04 01/12/17 11:04 O2 Sat by Pulse Oximetry: 100 (on RA) Pulse Ox Interpretation: Normal Medical Decision Making Medical Decision Making: Impression 51y/o F comes in w/ SOB secondary to ESRD Plan: * EKG * BNP, CMP, Trop I * CBC, PTT, PT * Chest X-Ray * Reassess and Disposition 1210 Case discussed w/ Dr Keith, states will admit patient to telemetry for ESRD and Hyperkalemia Disposition Discussed With Dr.: Jeyson Keith Doctor Will See Patient In The: Hospital Counseled Patient/Family Regarding: Studies Performed, Diagnosis - Disposition Disposition: HOSPITALIZED Disposition Time: 12:11 Condition: FAIR - Clinical Impression Clinical Impression: End stage renal failure on dialysis, Hyperkalemia - Scribe Statement The provider has reviewed the documentation as recorded by the Trinh Wright Provider Attestation: All medical record entries made by the Trinh were at my direction and personally dictated by me. I have reviewed the chart and agree that the record accurately reflects my personal performance of the history, physical exam, medical decision making, and the department course for this patient. I have also personally directed, reviewed, and agree with the discharge instructions and disposition.
[2017-01-12 11:10] LABS: BASO # 0.1 K/uL (0.0-0.2); BASO % 1.2 % (0.0-2.0); EOS # 0.7 K/uL (0.0-0.7); EOS % 7.5 % (0.0-4.0); HEMATOCRIT 40.7 % (34.0-47.0); LYMPH # 1.8 K/uL (1.0-4.3); LYMPH % 18.2 % (20.0-40.0); MEAN CELL VOLUME 90.2 fL (81.0-99.0); MEAN CORPUSCULAR HEMOGLOBIN 28.5 pg (27.0-31.0); MEAN CORPUSCULAR HGB CONC 31.6 g/dL (33.0-37.0); MONO # 0.6 K/uL (0.0-0.8); MONO % 6.4 % (0.0-10.0); RED CELL DISTRIBUTION WIDTH 13.9 % (11.5-14.5); WHITE BLOOD COUNT 9.7 K/uL (4.8-10.8)
--- NOTE | 2017-01-12 11:55 | RAD ---
PROCEDURE: CHEST RADIOGRAPH, 1 VIEW HISTORY: sob COMPARISON: Chest radiographs 12/30/2016 FINDINGS: LUNGS: No acute infiltrates bilaterally. PLEURA: No pneumothorax or pleural fluid seen. CARDIOVASCULAR: Normal. OSSEOUS STRUCTURES: No significant abnormalities. VISUALIZED UPPER ABDOMEN: Normal. OTHER FINDINGS: None. IMPRESSION: No interval acute cardiopulmonary disease appreciated.
[2017-01-12 12:00] LABS: BILIRUBIN,TOTAL 1.4 mg/dL (0.2-1.3); CALCIUM 8.9 mg/dl (8.6-10.4); POTASSIUM 8.8 mmol/L (3.6-5.2); TOTAL PROTEIN 8.9 g/dL (6.3-8.3); TROPONIN I 0.025 ng/mL (0.00-0.120)
[2017-01-12] MEDS ORDERED: Sod Polystyrene Sulf 15 gm/60 ml Susp PO ONE ×2 (12:01→13:03)
[2017-01-12] MEDS ORDERED: Sod Polystyrene Sulf 15 gm/60 ml Susp ONE (12:09)
--- NOTE | 2017-01-12 12:58 | CP.PCM.HP ---
<Jonny Sosa - Last Filed: 01/12/17 14:42> History of Present Illness - History of Present Illness History of Present Illness: CC: Shortness of breath HPI: Patient is a 51 year old female with a history of "resolved htn", who presents to the ED with complaints of shortness of breath that started last night and chest tightness. Patient stated that she felt weak and laying down made her feel better and her shortness of breath was exacerbated by activity and sitting up. Patient stated that she took menthol this morning but it provided no relief. Patient was discharged from [facility] on 01/08/2017 due to missed HD. Patient is visiting from [facility], where she gets HD ([facility] ) for the past two years. Patient is aware that she does not have medical insurance in the [facility] therefore, unable to get outpatient HD. Patient states that she usually comes to the hospital during her visit in the [facility] for HD. Patient admits mild frontal headache, plapitations, cough, mild abdominal pain and intermittent bilateral leg swelling. PMD: none PMHx: resolved HTN ("used to have HTN, but not anymore") SurgHx: fibroma 2002, appendectomy, hysterectomy FamHx: Mother- ESRD/dialysis, renal cysts, DM, HTN; Aunt/Uncle- " from renal problems" SocHx: denies tobacco, alcohol, and drug use Allergies: aspirin (throat swells) Medications: denies Allergies: aspirin (throat swells) SocHx: Stays with parents during visitation to the [facility] denies tobacco, alcohol, and drug use Present on Admission - Present on Admission Any Indicators Present on Admission: No Review of Systems - Constitutional Constitutional: Chills, Headache, Weakness. absent: Fever - EENT Eyes: absent: Blurred Vision, Change in Vision Ears: absent: Dizziness - Cardiovascular Cardiovascular: Dyspnea, Dyspnea on Exertion, Lightheadedness, Palpitations - Respiratory Respiratory: Cough, Dyspnea on Exertion. absent: Wheezing, Excessive Mucous Production, Change in Mucous Color - Gastrointestinal Gastrointestinal: Abdominal Pain. absent: Nausea, Vomiting - Reproductive: Female Reproductive:Female: S/P Hysterectomy - Endocrine Endocrine: Fatigue, Palpitations Past Patient History - Infectious Disease Hx of Infectious Diseases: None - Past Medical History & Family History Past Medical History?: Yes - Past Social History Smoking Status: Never Smoked - CARDIAC Hx Hypertension: Yes - PULMONARY Other/Comment: 01/05/17 SOB. - NEUROLOGICAL Hx Neurological Disorder: No - HEENT Hx HEENT Problems: No - RENAL Hx Chronic Kidney Disease: Yes - ENDOCRINE/METABOLIC Hx Endocrine Disorders: No - HEMATOLOGICAL/ONCOLOGICAL Hx Blood Disorders: No - INTEGUMENTARY Hx Dermatological Problems: No - MUSCULOSKELETAL/RHEUMATOLOGICAL Hx Falls: No - GASTROINTESTINAL Hx Gastrointestinal Disorders: No - GENITOURINARY/GYNECOLOGICAL Hx Genitourinary Disorders: No Other/Comment: ESRD - PSYCHIATRIC Hx Substance Use: No - SURGICAL HISTORY Hx Appendectomy: Yes - ANESTHESIA Hx Anesthesia: Yes Hx Anesthesia Reactions: No Hx Malignant Hyperthermia: No Meds Allergies/Adverse Reactions: Allergies Allergy/AdvReac Type Severity Reaction Status Date / Time aspirin Allergy ANAPHYLAXIS Verified 01/12/17 09:53 Physical Exam - Constitutional Appears: No Acute Distress - Head Exam Head Exam: ATRAUMATIC, NORMAL INSPECTION - Eye Exam Eye Exam: EOMI, Normal appearance - ENT Exam ENT Exam: Mucous Membranes Moist - Respiratory Exam Respiratory Exam: Decreased Breath Sounds (b/l lower lobes), NORMAL BREATHING PATTERN - Cardiovascular Exam Cardiovascular Exam: REGULAR RHYTHM, +S1, +S2 - GI/Abdominal Exam GI & Abdominal Exam: Normal Bowel Sounds, Soft - Extremities Exam Extremities exam: Positive for: normal inspection. Negative for: calf tenderness, joint swelling, pedal edema, tenderness Additional comments: Left forearm wrist fistula, thrill is palpable and bruit on auscultation - Back Exam Back exam: NORMAL INSPECTION - Neurological Exam Neurological exam: Alert, Oriented x3 - Psychiatric Exam Psychiatric exam: Normal Affect - Skin Skin Exam: Normal Color Results - Vital Signs Recent Vital Signs: Last Vital Signs Temp 98 F 01/12/17 09:49 Pulse 74 01/12/17 12:41 Resp 18 01/12/17 12:41 BP 131/87 01/12/17 12:41 Pulse Ox 100 01/12/17 12:41 - Labs Result Diagrams: 01/12/17 11:04 01/12/17 11:04 Labs: Laboratory Results - last 24 hr 01/12/17 01/12/17 01/12/17 11:04 11:04 11:04 WBC 9.7 RBC 4.52 Hgb 12.9 Hct 40.7 MCV 90.2 MCH 28.5 MCHC 31.6 L RDW 13.9 Plt Count 244 MPV 10.0 Neut % (Auto) 66.7 Lymph % (Auto) 18.2 L [place] % (Auto) 6.4 Eos % (Auto) 7.5 H Baso % (Auto) 1.2 Neut # 6.4 Lymph # 1.8 [place] # 0.6 Eos # 0.7 Baso # 0.1 PT 11.7 INR 1.0 APTT 31 Sodium 135 Potassium 8.8 H* D Chloride 94 L Carbon Dioxide 29 Anion Gap 21 H BUN 68 H Creatinine 13.0 H* D Est GFR ( Amer) 4 Est GFR (Non-Af Amer) 3 Random Glucose 72 Calcium 8.9 Total Bilirubin 1.4 H AST 52 H D ALT 52 D Alkaline Phosphatase 394 H Troponin I 0.0250 NT-Pro-B Natriuret Pep 3640 H Total Protein 8.9 H Albumin 4.4 Globulin 4.5 H Albumin/Globulin Ratio 1.0 Assessment & Plan (1) Hyperkalemia Assessment and Plan: On admission: * K+: 8.8 Medication/management: * Kayexalate 30mg PO once (x2) * Calcium gluconate 4.65meq IVP once * Insulin IV 4 units once * D50 * HD stat * Monitor with am labs Status: Acute (2) Dyspnea Assessment and Plan: Possible secondary to missed HD Chest X-ray:No interval acute cardiopulmonary disease appreciated SPO2 on RA: 97% Status: Acute (3) End stage renal failure on dialysis Assessment and Plan: Nephrology consult, Dr. Frazier, help appreciated * Management as per recommendation Elevated BUN/CR on admission: 68/13 * Monitor with am labs post HD HD (TTS) Phosphol 667mg PO BIDCC Status: Acute (4) ADPKD (autosomal dominant polycystic kidney) Assessment and Plan: As per patient Status: Acute (5) Elevated blood pressure reading Assessment and Plan: Patient reports having a hx of HTN, but not currently/doesn't take medications for HTN. Will monitor and treat appropriately Status: Acute (6) Prophylactic measure Assessment and Plan: GI: Pepcid 20mg PO daily DVT: SCDs, heparin 5,000 units SC Q8H Renal Diet Status: Acute <Jeyson Keith H - Last Filed: 01/12/17 15:07> Results - Vital Signs Recent Vital Signs: Last Vital Signs Temp 98 F 01/12/17 09:49 Pulse 84 01/12/17 14:23 Resp 18 01/12/17 14:23 BP 153/87 H 01/12/17 14:23 Pulse Ox 97 01/12/17 14:23 - Labs Result Diagrams: 01/12/17 11:04 01/12/17 11:04 Labs: Laboratory Results - last 24 hr 01/12/17 01/12/17 01/12/17 11:04 11:04 11:04 WBC 9.7 RBC 4.52 Hgb 12.9 Hct 40.7 MCV 90.2 MCH 28.5 MCHC 31.6 L RDW 13.9 Plt Count 244 MPV 10.0 Neut % (Auto) 66.7 Lymph % (Auto) 18.2 L [place] % (Auto) 6.4 Eos % (Auto) 7.5 H Baso % (Auto) 1.2 Neut # 6.4 Lymph # 1.8 [place] # 0.6 Eos # 0.7 Baso # 0.1 PT 11.7 INR 1.0 APTT 31 Sodium 135 Potassium 8.8 H* D Chloride 94 L Carbon Dioxide 29 Anion Gap 21 H BUN 68 H Creatinine 13.0 H* D Est GFR ( Amer) 4 Est GFR (Non-Af Amer) 3 Random Glucose 72 Calcium 8.9 Total Bilirubin 1.4 H AST 52 H D ALT 52 D Alkaline Phosphatase 394 H Troponin I 0.0250 NT-Pro-B Natriuret Pep 3640 H Total Protein 8.9 H Albumin 4.4 Globulin 4.5 H Albumin/Globulin Ratio 1.0 Attending/Attestation - Attestation I have personally seen and examined this patient.: Yes I have fully participated in the care of the patient.: Yes I have reviewed all pertinent clinical information: Yes Notes (Text): 01/12/17 15:03 Medical attending: Patient was seen and examined by me. Agree with the above note by the resident The patient is known to hospitalist service from previous week. She has ESRD and on HD. [place] I understand she is here until sometime in February before she returns to her country where she has been getting HD The K is very high, as mentioned above calcium gluconate has been adminsters x 2. Also reviewed EKG and it looked stable. Small amount of IV insulin given with an amp of D50, there is also Kayexelate ordered as well. The K should come down with HD as well. Will have to monitor on telemetry and recheck K thank you Jeyson Keith
[2017-01-12] MEDS ORDERED: (Novolin R) Insulin Human Regular 100 units/ml vial IV ONE (13:06)
[2017-01-12] MEDS ORDERED: Dextrose 50% SYRINGE Inj (50 ml) IV STA (13:06)
[2017-01-13 07:08] LABS: BASO # 0.1 K/uL (0.0-0.2); BASO % 0.8 % (0.0-2.0); EOS # 0.6 K/uL (0.0-0.7); EOS % 7.5 % (0.0-4.0); HEMATOCRIT 39.2 % (34.0-47.0); LYMPH % 25.8 % (20.0-40.0); MEAN CELL VOLUME 89.5 fL (81.0-99.0); MEAN CORPUSCULAR HEMOGLOBIN 28.5 pg (27.0-31.0); MEAN CORPUSCULAR HGB CONC 31.9 g/dL (33.0-37.0); MEAN PLATELET VOLUME 10.1 fL (7.2-11.7); MONO # 0.6 K/uL (0.0-0.8); MONO % 7.7 % (0.0-10.0); NRBC % 0.1 % (0.0-2.0); RED CELL DISTRIBUTION WIDTH 13.5 % (11.5-14.5); WHITE BLOOD COUNT 7.6 K/uL (4.8-10.8)
[2017-01-13 08:23] LABS: ALB/GLOB RATIO 1.3 (1.0-2.1); BILIRUBIN,TOTAL 0.6 mg/dL (0.2-1.3); MAGNESIUM 1.9 mg/dL (1.6-2.3); PHOSPHOROUS 5.3 mg/dL (2.5-4.5); POTASSIUM 5.5 mmol/L (3.6-5.2); TOTAL PROTEIN 6.5 g/dL (6.3-8.3)
--- NOTE | 2017-01-13 12:05 | CP.PCM.CON ---
History of Present Illness - History of Present Illness History of Present Illness: HPI: Patient is a 51 year old female with a history of "resolved htn", who presents to the ED with complaints of shortness of breath that started last night and chest tightness. Patient stated that she felt weak and laying down made her feel better and her shortness of breath was exacerbated by activity and sitting up. Patient stated that she took menthol this morning but it provided no relief. Patient was discharged from [facility] on 01/08/2017 due to missed HD. Patient is visiting from [facility], where she gets HD ([facility] ) for the past two years. Patient is aware that she does not have medical insurance in the [facility], therefore, unable to get outpatient HD. Patient states that she usually comes to the hospital during her visit in the [facility] for HD. Patient admits mild frontal headache, plapitations, cough, mild abdominal pain and intermittent bilateral leg swelling. PMD: none PMHx: resolved HTN ("used to have HTN, but not anymore") SurgHx: fibroma 2002, appendectomy, hysterectomy FamHx: Mother- ESRD/dialysis, renal cysts, DM, HTN; Aunt/Uncle- " from renal problems" SocHx: denies tobacco, alcohol, and drug use Allergies: aspirin (throat swells) Medications: denies Allergies: aspirin (throat swells) SocHx: Stays with parents during visitation to the [facility], denies tobacco, alcohol, and drug use s/p dialysis 01/12 for uremia/ hyperkalemia Review of Systems - Review of Systems Systems not reviewed;Unavailable: Language Barrier Past Patient History - Infectious Disease Hx of Infectious Diseases: None - Past Medical History & Family History Past Medical History?: Yes - Past Social History Smoking Status: Never Smoked Alcohol: None Drugs: Denies Home Situation {Lives}: With Family - CARDIAC Hx Cardiac Disorders: Yes Hx Hypertension: Yes - PULMONARY Hx Respiratory Disorders: Yes Other/Comment: 01/05/17 SOB. - NEUROLOGICAL Hx Neurological Disorder: No - HEENT Hx HEENT Problems: No - RENAL Hx Chronic Kidney Disease: Yes Type of Dialysis Access: L FA AVS Date of Last Dialysis Treatment: 01/12/17 Hx Kidney Stones: No Hx Neurogenic Bladder: No Hx Pyelonephritis: No Hx Renal (Kidney) Cancer: No Hx Renal Failure: Yes Other/Comment: Polycystic Kidney Disease - ENDOCRINE/METABOLIC Hx Endocrine Disorders: No - HEMATOLOGICAL/ONCOLOGICAL Hx Blood Disorders: No - INTEGUMENTARY Hx Dermatological Problems: No - MUSCULOSKELETAL/RHEUMATOLOGICAL Hx Musculoskeletal Disorders: Yes Hx Arthritis: Yes (Both Knees) Hx Falls: No - GASTROINTESTINAL Hx Gastrointestinal Disorders: No - GENITOURINARY/GYNECOLOGICAL Hx Genitourinary Disorders: No Other/Comment: ESRD - PSYCHIATRIC Hx Psychophysiologic Disorder: No Hx Substance Use: No - SURGICAL HISTORY Hx Surgeries: Yes Hx Appendectomy: Yes Hx Hysterectomy: Yes - ANESTHESIA Hx Anesthesia: Yes Hx Anesthesia Reactions: No Hx Malignant Hyperthermia: No Meds Allergies/Adverse Reactions: Allergies Allergy/AdvReac Type Severity Reaction Status Date / Time aspirin Allergy ANAPHYLAXIS Verified 01/12/17 09:53 - Medications Medications: Current Medications [facility] Last Admin: 01/13/17 08:56 Dose: 667 mg Famotidine (Pepcid) 20 mg PO DAILY [facility] Last Admin: 01/13/17 10:01 Dose: 20 mg Heparin Sodium (Porcine) (Heparin) 5,000 units SC Q8 [facility] Last Admin: 01/13/17 05:52 Dose: 5,000 units Physical Exam - Constitutional Appears: Non-toxic, Chronically Ill - Head Exam Head Exam: ATRAUMATIC, NORMAL INSPECTION - Eye Exam Eye Exam: EOMI. absent: Normal appearance - Neck Exam Neck exam: Positive for: Normal Inspection. Negative for: Tenderness - Respiratory Exam Respiratory Exam: Clear to Auscultation Bilateral, NORMAL BREATHING PATTERN - Cardiovascular Exam Cardiovascular Exam: REGULAR RHYTHM, +S1 - GI/Abdominal Exam GI & Abdominal Exam: Soft. absent: Tenderness - Extremities Exam Extremities exam: Positive for: normal inspection. Negative for: tenderness - Neurological Exam Neurological exam: Alert, CN II-XII Intact - Skin Skin Exam: Dry, Warm Results - Vital Signs Recent Vital Signs: Last Vital Signs Temp 98.5 F 01/13/17 07:50 Pulse 73 01/13/17 07:50 Resp 20 01/13/17 07:50 BP 121/79 01/13/17 07:50 Pulse Ox 96 01/13/17 07:50 - Labs Result Diagrams: 01/13/17 06:55 01/13/17 06:55 Labs: Laboratory Results - last 24 hr 01/12/17 01/13/17 01/13/17 15:03 06:55 06:55 WBC 7.6 RBC 4.39 Hgb 12.5 Hct 39.2 MCV 89.5 MCH 28.5 MCHC 31.9 L RDW 13.5 Plt Count 221 MPV 10.1 Neut % (Auto) 58.2 Lymph % (Auto) 25.8 [place] % (Auto) 7.7 Eos % (Auto) 7.5 H Baso % (Auto) 0.8 Neut # 4.4 Lymph # 2.0 [place] # 0.6 Eos # 0.6 Baso # 0.1 Sodium 138 Potassium 5.5 H Chloride 96 L Carbon Dioxide 32 H Anion Gap 16 BUN 32 H Creatinine 8.3 H* D Est GFR ( Amer) 6 Est GFR (Non-Af Amer) 5 Random Glucose 84 Hemoglobin A1c 5.9 Calcium 9.0 Phosphorus 5.3 H Magnesium 1.9 Total Bilirubin 0.6 AST 36 D ALT 58 H Alkaline Phosphatase 365 H Total Protein 6.5 Albumin 3.6 Globulin 2.9 Albumin/Globulin Ratio 1.3 Triglycerides 156 H D Cholesterol 148 LDL Cholesterol Direct 76 HDL Cholesterol 34 Assessment & Plan (1) Hyperkalemia Status: Acute (2) ADPKD (autosomal dominant polycystic kidney) Status: Acute - Assessment and Plan (Free Text) Plan: repeat dialysis today then discharge
--- NOTE | 2017-01-13 14:21 | CP.PCM.DIS ---
<Jonny Sosa E - Last Filed: 01/13/17 15:43> Provider - Provider Date of Admission: 01/12/17 12:11 Attending physician: Radha Topete DO Time Spent in preparation of Discharge (in minutes): 35 Diagnosis - Discharge Diagnosis (1) Hyperkalemia Status: Acute (2) Dyspnea Status: Acute (3) End stage renal failure on dialysis Status: Acute (4) ADPKD (autosomal dominant polycystic kidney) Status: Acute (5) Elevated blood pressure reading Status: Acute (6) Prophylactic measure Status: Acute Hospital Course - Lab Results Lab Results: Most Recent Lab Values WBC 7.6 K/uL (4.8-10.8) 01/13/17 06:55 RBC 4.39 Mil/uL (3.80-5.20) 01/13/17 06:55 Hgb 12.5 g/dL (11.0-16.0) 01/13/17 06:55 Hct 39.2 % (34.0-47.0) 01/13/17 06:55 MCV 89.5 fL (81.0-99.0) 01/13/17 06:55 MCH 28.5 pg (27.0-31.0) 01/13/17 06:55 MCHC 31.9 g/dL (33.0-37.0) L 01/13/17 06:55 RDW 13.5 % (11.5-14.5) 01/13/17 06:55 Plt Count 221 K/uL (130-400) 01/13/17 06:55 MPV 10.1 fL (7.2-11.7) 01/13/17 06:55 Neut % (Auto) 58.2 % (50.0-75.0) 01/13/17 06:55 Lymph % (Auto) 25.8 % (20.0-40.0) 01/13/17 06:55 [place] % (Auto) 7.7 % (0.0-10.0) 01/13/17 06:55 Eos % (Auto) 7.5 % (0.0-4.0) H 01/13/17 06:55 Baso % (Auto) 0.8 % (0.0-2.0) 01/13/17 06:55 Neut # 4.4 K/uL (1.8-7.0) 01/13/17 06:55 Lymph # 2.0 K/uL (1.0-4.3) 01/13/17 06:55 [place] # 0.6 K/uL (0.0-0.8) 01/13/17 06:55 Eos # 0.6 K/uL (0.0-0.7) 01/13/17 06:55 Baso # 0.1 K/uL (0.0-0.2) 01/13/17 06:55 PT 11.7 SECONDS (9.7-12.2) 01/12/17 11:04 INR 1.0 01/12/17 11:04 APTT 31 SECONDS (21-34) 01/12/17 11:04 Sodium 138 mmol/L (132-148) 01/13/17 06:55 Potassium 5.5 mmol/L (3.6-5.2) H 01/13/17 06:55 Chloride 96 mmol/L (98-107) L 01/13/17 06:55 Carbon Dioxide 32 mmol/L (22-30) H 01/13/17 06:55 Anion Gap 16 (10-20) 01/13/17 06:55 BUN 32 mg/dL (7-17) H 01/13/17 06:55 Creatinine 8.3 mg/dL (0.7-1.2) H* D 01/13/17 06:55 Est GFR ( Amer) 6 01/13/17 06:55 Est GFR (Non-Af Amer) 5 01/13/17 06:55 Random Glucose 84 mg/dL (65-105) 01/13/17 06:55 Hemoglobin A1c 5.9 % (4.2-6.5) 01/12/17 15:03 Calcium 9.0 mg/dl (8.6-10.4) 01/13/17 06:55 Phosphorus 5.3 mg/dL (2.5-4.5) H 01/13/17 06:55 Magnesium 1.9 mg/dL (1.6-2.3) 01/13/17 06:55 Total Bilirubin 0.6 mg/dL (0.2-1.3) 01/13/17 06:55 AST 36 U/L (14-36) D 01/13/17 06:55 ALT 58 U/L (9-52) H 01/13/17 06:55 Alkaline Phosphatase 365 U/L (38-126) H 01/13/17 06:55 Troponin I 0.0250 ng/mL (0.00-0.120) 01/12/17 11:04 NT-Pro-B Natriuret Pep 3640 pg/mL (0-900) H 01/12/17 11:04 Total Protein 6.5 g/dL (6.3-8.3) 01/13/17 06:55 Albumin 3.6 g/dL (3.5-5.0) 01/13/17 06:55 Globulin 2.9 gm/dL (2.2-3.9) 01/13/17 06:55 Albumin/Globulin Ratio 1.3 (1.0-2.1) 01/13/17 06:55 Triglycerides 156 mg/dL (0-149) H D 01/13/17 06:55 Cholesterol 148 mg/dL (0-199) 01/13/17 06:55 LDL Cholesterol Direct 76 mg/dL (0-129) 01/13/17 06:55 HDL Cholesterol 34 mg/dL (30-70) 01/13/17 06:55 - Hospital Course Hospital Course: HPI (As per admission): Patient is a 51 year old female with a history of "resolved htn", who presents to the ED with complaints of shortness of breath that started last night and chest tightness. Patient stated that she felt weak and laying down made her feel better and her shortness of breath was exacerbated by activity and sitting up. Patient stated that she took menthol this morning but it provided no relief. Patient was discharged from [facility] on 01/08/2017 due to missed HD. Patient is visiting from [facility], where she gets HD (TTS) for the past two years. Patient is aware that she does not have medical insurance in the [facility], therefore, unable to get outpatient HD. Patient states that she usually comes to the hospital during her visit in the [facility] for HD. Patient admits mild frontal headache, plapitations, cough, mild abdominal pain and intermittent bilateral leg swelling. Hospital Course:arr Patient was admitted with the diagnosis of acute dyspnea and hyperkalemia as a result of missed HD as patient has significant past medical history of ESRD. Patient was treated with appropriate chemical agent and received emergent HD (). Supervisor [employer] Signals, Dr. Frazier/Geoffrey, who recommended that another HD by administered before discharge. Patient has been cleared by medical team and discharged with prescription of Kayexalate as per regional program manager recommendation. Patient was educated on hyperkalemia and complications of such condition and the need for patient to make the necessary arrangement for HD during her stay in the [facility]. Pertinent Imaging: Chest X-ray: No interval acute cardiopulmonary disease appreciated. This is a brief summary of event. For a complete hospital course, please refer to the medical records Discharge Exam - Head Exam Head Exam: ATRAUMATIC, NORMAL INSPECTION - Eye Exam Eye Exam: EOMI, Normal appearance - ENT Exam ENT Exam: Mucous Membranes Moist - Respiratory Exam Respiratory Exam: Clear to PA & Lateral, NORMAL BREATHING PATTERN - Cardiovascular Exam Cardiovascular Exam: REGULAR RHYTHM, +S1, +S2 - GI/Abdominal Exam GI & Abdominal Exam: Normal Bowel Sounds, Soft. absent: Tenderness - Extremities Exam Extremities exam: normal inspection - Neurological Exam Neurological exam: Alert, Oriented x3 - Psychiatric Exam Psychiatric exam: Normal Affect - Skin Skin Exam: Normal Color Discharge Plan - Discharge Medications Prescriptions: Sodium Polystyrene Sulfonate [kayeXALATE Susp] 15 gm PO DAILY 30 Days #30 bottle - Follow Up Plan Condition: FAIR Disposition: HOME/ ROUTINE Instructions: Sodium Polystyrene Sulfonate (By mouth), Heart Failure (DC), Dialysis Diet (DC), Hyperkalemia (DC), End Stage Kidney Disease (DC) Additional Instructions: Please discharge home as per Dr. Topete and Dr. Hale Please start the following medication: 1.) Kayexalate 15mg PO daily Please resume all your home medications as prescribed by your PMD in [facility] Please try to have a plan for HD when visiting the [facility] or obtain a travellers medical insurance. It is very important as missing dialysis can cause very serious complications Please return to the ED if symptoms worsen or resume <Radha Topete V - Last Filed: 01/13/17 19:47> Provider - Provider Date of Admission: 01/12/17 12:11 Attending physician: Radha Topete, Hospital Course - Lab Results Lab Results: Most Recent Lab Values WBC 7.6 K/uL (4.8-10.8) 01/13/17 06:55 RBC 4.39 Mil/uL (3.80-5.20) 01/13/17 06:55 Hgb 12.5 g/dL (11.0-16.0) 01/13/17 06:55 Hct 39.2 % (34.0-47.0) 01/13/17 06:55 MCV 89.5 fL (81.0-99.0) 01/13/17 06:55 MCH 28.5 pg (27.0-31.0) 01/13/17 06:55 MCHC 31.9 g/dL (33.0-37.0) L 01/13/17 06:55 RDW 13.5 % (11.5-14.5) 01/13/17 06:55 Plt Count 221 K/uL (130-400) 01/13/17 06:55 MPV 10.1 fL (7.2-11.7) 01/13/17 06:55 Neut % (Auto) 58.2 % (50.0-75.0) 01/13/17 06:55 Lymph % (Auto) 25.8 % (20.0-40.0) 01/13/17 06:55 [place] Johns % (Auto) 7.7 % (0.0-10.0) 01/13/17 06:55 Eos % (Auto) 7.5 % (0.0-4.0) H 01/13/17 06:55 Baso % (Auto) 0.8 % (0.0-2.0) 01/13/17 06:55 Neut # 4.4 K/uL (1.8-7.0) 01/13/17 06:55 Lymph # 2.0 K/uL (1.0-4.3) 01/13/17 06:55 [place] # 0.6 K/uL (0.0-0.8) 01/13/17 06:55 Eos # 0.6 K/uL (0.0-0.7) 01/13/17 06:55 Baso # 0.1 K/uL (0.0-0.2) 01/13/17 06:55 PT 11.7 SECONDS (9.7-12.2) 01/12/17 11:04 INR 1.0 01/12/17 11:04 APTT 31 SECONDS (21-34) 01/12/17 11:04 Sodium 138 mmol/L (132-148) 01/13/17 06:55 Potassium 5.5 mmol/L (3.6-5.2) H 01/13/17 06:55 Chloride 96 mmol/L (98-107) L 01/13/17 06:55 Carbon Dioxide 32 mmol/L (22-30) H 01/13/17 06:55 Anion Gap 16 (10-20) 01/13/17 06:55 BUN 32 mg/dL (7-17) H 01/13/17 06:55 Creatinine 8.3 mg/dL (0.7-1.2) H* D 01/13/17 06:55 Est GFR ( Amer) 6 01/13/17 06:55 Est GFR (Non-Af Amer) 5 01/13/17 06:55 Random Glucose 84 mg/dL (65-105) 01/13/17 06:55 Hemoglobin A1c 5.9 % (4.2-6.5) 01/12/17 15:03 Calcium 9.0 mg/dl (8.6-10.4) 01/13/17 06:55 Phosphorus 5.3 mg/dL (2.5-4.5) H 01/13/17 06:55 Magnesium 1.9 mg/dL (1.6-2.3) 01/13/17 06:55 Total Bilirubin 0.6 mg/dL (0.2-1.3) 01/13/17 06:55 AST 36 U/L (14-36) D 01/13/17 06:55 ALT 58 U/L (9-52) H 01/13/17 06:55 Alkaline Phosphatase 365 U/L (38-126) H 01/13/17 06:55 Troponin I 0.0250 ng/mL (0.00-0.120) 01/12/17 11:04 NT-Pro-B Natriuret Pep 3640 pg/mL (0-900) H 01/12/17 11:04 Total Protein 6.5 g/dL (6.3-8.3) 01/13/17 06:55 Albumin 3.6 g/dL (3.5-5.0) 01/13/17 06:55 Globulin 2.9 gm/dL (2.2-3.9) 01/13/17 06:55 Albumin/Globulin Ratio 1.3 (1.0-2.1) 01/13/17 06:55 Triglycerides 156 mg/dL (0-149) H D 01/13/17 06:55 Cholesterol 148 mg/dL (0-199) 01/13/17 06:55 LDL Cholesterol Direct 76 mg/dL (0-129) 01/13/17 06:55 HDL Cholesterol 34 mg/dL (30-70) 01/13/17 06:55 Attending/Attestation - Attestation I have personally seen and examined this patient.: Yes I have fully participated in the care of the patient.: Yes I have reviewed all pertinent clinical information, including history, physical exam and plan: Yes Notes (Text): * Patient seen, examined, and case discussed with day-time resident. * Patient seen this morning. patient denies acute complaints. Patient reports she is visiting her parents in the [facility], reports in [facility], usually takes dialysis about 2-3x a week , started two years ago, but when she comes here to the [facility], she reports she needs to go the hospital to get dialysis because she does not have insurance nor dialysis placement in the [facility]. Patient reports she is set to go back to [facility] on Feb 20. I explained to the patient because she is not taking her dialysis as advised, her potassium levels were extremely high, and with these potassium levels it can cause her to because of kidneys cannot control the potassium that remains in the blood. Patient was not aware of this fact, but she understands it is extremely important to take her dialysis. This is not patient's first hospitalization for non-compliance with dialysis while visiting, noted reviewed records in EMR from before. * I spoke with hospital mysql database administrator, Dr Patino as well, given she is not a citizen, does not have insurance nor travel insurance, and patient cannot get dialysis spot here. Patient to have dialysis today prior to discharge. Potassium improved 5.5 compared to yesterday prior to dialysis scheduled for today. Patient is asymptomatic. No complaints of chest pain, palpitations, no shortness of breathe. * Discussed with nephrology, patient ordered for dialysis today, and patient discharge with prescription for Kayexlate. This is summary of patient's hospitalization. Please see EMR for further details. Patient provided script for Kayexlate. Patient understands she must remain compliant on her dialysis. Discharge Diagnoses: (1) History of Noncompliance with Dialysis Assessment and Plan: * Prior EMR shows when patient is visiting [facility], she does not get her regularly scheduled dialysis. Does not have insurance/citizenship for dialysis placement. Patient understands the risks and benefits of taking her dialysis and reports she is compliant [place] her home country. Not: patient had similar last time in 2016. I specifically told her she her today from the high potassium level she had yesterday. (2) Hyperkalemia-->Resolved Assessment and Plan: Day of admission * Kayexalate 30mg PO once (x2) * Calcium gluconate 4.65meq IVP once * Insulin IV 4 units once * D50 * HD stat * Monitor with am labs * K+: 8.8-->5.5 * Patient to have dialysis today 01/13 and recommended for prescription for Kayexlate upon discharge Status: Acute (3) Dyspnea-->Resolved Assessment and Plan: * Possible secondary to missed HD * Chest X-ray:No interval acute cardiopulmonary disease appreciated * SPO2 on RA: 97% * Patient to have dialysis today prior to discharge. (4) End stage renal failure on dialysis Assessment and Plan: Nephrology consult, Dr. Frazier, help appreciated Elevated BUN/CR on admission: * Monitor with am labs post HD Phosphol 667mg PO BIDCC Recommended for dialysis today and discharge post- dialysis with Kayexlate Status: Chronic (5) ADPKD (autosomal dominant polycystic kidney) Assessment and Plan: As per patient Status: Chronic (6) Elevated blood pressure reading Assessment and Plan: * Improved * Off potassium sparing diurietics not on any estevan/arbs given hyperkalemia * Patient is on dialysis and getting dialysis today * Will monitor vital signs accordingly (7) Prophylactic measure Assessment and Plan: GI: Pepcid 20mg PO daily DVT: SCDs, heparin 5,000 units SC Q8H Renal Diet Status: Acute
[2017-01-13 19:30] VITALS: BP 134/87; PULSE 89; RESP 18; TEMP 97.6; O2SAT 98
--- NOTE | 2017-01-13 23:17 | CARD ---
APPROVED REPORT EKG Measurement Heart [id number] [id number] <Conclusion> Normal sinus rhythm Septal infarct, age undetermined Inferior infarct, age undetermined Abnormal ECG
== END 2017-01-13 22:53 | disposition home or self-care (01) | DRG 682 ==
LOC: C.ER 09:43 → C.9E 12:11 → C.6T 12:38
PROVIDERS: ADMIT Hospitalist; ATTEND Hospitalist
PROC: 5A1D70Z Performance of Urinary Filtration, Intermittent, Less than 6 Hours Per Day (ICD-10-PCS; principal; 2017-01-13)
DX: I12.0 Hypertensive chronic kidney disease with stage 5 chronic kidney disease or end stage renal disease (principal); N18.6 End stage renal disease; E87.5 Hyperkalemia; Q61.2 Polycystic kidney, adult type; Z99.2 Dependence on renal dialysis; M17.0 Bilateral primary osteoarthritis of knee; Z91.15 Patient's noncompliance with renal dialysis

== ENCOUNTER 2017-01-20 13:22 | Inpatient (IN) | payer MEDICAID, OTHER ==
--- NOTE | 2017-01-20 15:33 | C.PDOC ---
History Of Present Illness 51 yo female w/PMHx of ADPK(autosomal dominant polycystic kidney), HTN " resolved, ESRD on HD (TTS) come in with complaints of SOB, epigastric pain, nausea for past 2 days. Patient reports last hemodialysis was 8 days. Pt admits , " visiting here my sick mother from [facility]". Patient admits, have no insurance and was not been dialyzed. Patient denies fever/chills, headache, dizziness, neck pain, cough, dyspnea, diaphoresis, palpitation, nausea , vomiting, diarrhea, UTI sx. FYI: Pt was seen here in ED twice due to same complaints, on 01/05/17 and , both vists followed by admission. Last dialysis pt had on 01/13/17. Baseline Creatinin 8.2 Time Seen by Provider: 01/20/17 14:55 Chief Complaint (Nursing): Flu-like Symptoms History Per: Patient, Family Past Medical History Reviewed: Historical Data, Nursing Documentation, Vital Signs Vital Signs: Last Vital Signs Temp 98.4 F 01/20/17 17:24 Pulse 82 01/20/17 17:24 Resp 19 01/20/17 17:24 BP 152/90 H 01/20/17 17:24 Pulse Ox 100 01/20/17 17:24 - Medical History PMH: Arthritis (Both Knees), HTN, End Stage Renal Disease, Chronic Kidney Disease Denies: Kidney Stones Surgical History: Appendectomy - [facility] Procedures (01/12/17) DILATION OF LEFT CEPHALIC VEIN, PERCUTANEOUS APPROACH (11/22/15) PERFORMANCE OF URINARY FILTRATION, MULTIPLE (11/22/15) Family History: States: Unknown Family Hx - Social History Hx Alcohol Use: No Hx Substance Use: No - Immunization History Hx Tetanus Toxoid Vaccination: No Hx Influenza Vaccination: No Hx Pneumococcal Vaccination: No Review Of Systems Except As Marked, All Systems Reviewed And Found Negative. Constitutional: Negative for: Fever, Chills Eyes: Negative for: Vision Change ENT: Negative for: Ear Discharge, Nose Discharge, Mouth Swelling, Throat Pain, Throat Swelling Cardiovascular: Positive for: Chest Pain. Negative for: Edema, Light Headedness Respiratory: Positive for: Shortness of Breath. Negative for: Cough, Pleuritic Pain, Sputum, Wheezing Gastrointestinal: Positive for: Abdominal Pain. Negative for: Nausea, Vomiting , Diarrhea, Melena, Hematochezia, Hematemesis Genitourinary: Negative for: Dysuria, Frequency, Incontinence Musculoskeletal: Negative for: Neck Pain, Back Pain Skin: Negative for: Rash Neurological: Negative for: Weakness, Numbness, Altered Mental Status, Headache , Dizziness Physical Exam - Physical Exam Appears: Well, Non-toxic, No Acute Distress Skin: Normal Color, Warm, Dry, No Rash Eye(s): bilateral: PERRL Nose: Normal Throat: No Drooling Neck: Trachea Midline, Supple Cardiovascular: Rhythm Regular, No Murmur, No JVD, Other ((-) carotid bruits B/L ) Respiratory: No Decreased Breath Sounds, Rales (Left base), No Wheezing Gastrointestinal/Abdominal: Soft, No Tenderness, No Distention, No Guarding Back: No CVA Tenderness Extremity: Normal ROM, No Pedal Edema, No Deformity, Other (Left forearm Av shunt, (+) thrill, c/d/i) ED Course And Treatment - Laboratory Results Result Diagrams: 01/20/17 15:37 01/20/17 15:37 Lab Interpretation: Abnormal ECG: Interpreted By Me, Viewed By Me (and ED attending) ECG Interpretation: No Changes From Prior Interpretation Of ECG: SR@73/min, LAD, Q wave in III, AVF, V2-V3, no acute ST-T changes. O2 Sat by Pulse Oximetry: 97 Pulse Ox Interpretation: Normal - Radiology CXR: Interpreted by Me, Read By Radiologist CXR Interpretation: Yes: No Acute Disease Progress Note: Blood work review, BUN/Cr=77/18.3. Hospitalist called and admission arranged. Nephrology called for STAT dialysis, and it was arranged. Pt remained stable during the ED evaluation. Disposition - Disposition Disposition: HOSPITALIZED Disposition Time: 16:05 Condition: STABLE - Clinical Impression Clinical Impression: ADPKD (autosomal dominant polycystic kidney), End stage renal failure on dialysis, Chest pain
[2017-01-20 15:49] LABS: BASO % 0.5 % (0.0-2.0); EOS # 0.5 K/uL (0.0-0.7); EOS % 5.5 % (0.0-4.0); HEMATOCRIT 38.5 % (34.0-47.0); LYMPH % 23.3 % (20.0-40.0); MEAN CELL VOLUME 89.6 fL (81.0-99.0); MEAN CORPUSCULAR HGB CONC 31.2 g/dL (33.0-37.0); MEAN PLATELET VOLUME 9.7 fL (7.2-11.7); MONO # 0.9 K/uL (0.0-0.8); MONO % 10.4 % (0.0-10.0); RED CELL DISTRIBUTION WIDTH 13.7 % (11.5-14.5); WHITE BLOOD COUNT 8.8 K/uL (4.8-10.8)
--- NOTE | 2017-01-20 15:54 | RAD ---
HISTORY: COMPARISON: 01/05/2017 TECHNIQUE: Chest PA and lateral FINDINGS: LINES AND TUBES: None. LUNG AND PLEURA: The lungs are well inflated and clear. HEART AND MEDIASTINUM: The heart is not enlarged. The hilar and mediastinal contours are within normal limits. SKELETAL STRUCTURES: The bony structures are within normal limits for the patient's age. VISUALIZED UPPER ABDOMEN: Normal. OTHER FINDINGS: None. IMPRESSION: No active pulmonary disease.
[2017-01-20 16:04] LABS: ALB/GLOB RATIO 1.4 (1.0-2.1); BILIRUBIN,TOTAL 0.9 mg/dL (0.2-1.3); CALCIUM 9.1 mg/dl (8.6-10.4); POTASSIUM 5.6 mmol/L (3.6-5.2); TOTAL PROTEIN 7.2 g/dL (6.3-8.3)
[2017-01-20 16:13] LABS: TROPONIN I 0.025 ng/mL (0.00-0.120)
--- NOTE | 2017-01-20 18:10 | CP.PCM.HP ---
<Oskar Guerrier - Last Filed: 01/20/17 18:01> History of Present Illness - History of Present Illness History of Present Illness: cc: "i need dialysis" HPI: Patient is a 51 year old female with PMHx of polycystic kidney disease, ESRD presenting to the ED requesting dialysis. Patient states she has been on dialysis for about 2 years. She recently came from [place] to visit her sick mother. Due to her lack of insurance, she has been coming to the hospital for dialysis. She was recently admitted on 01/05 and 01/12 for dialysis, last treatment was on 01/13/17, before she was discharged. She states she does not take any medications at home, though she recalls she was given some medications when she was here last. She reports she is mildly short of breath, and feels like her lips and eyes are more swollen than usual. She denies any chest pain, fevers, chills. PMD: none PMHx: PCKD, ESRD SurgHx: fibroma 2002, appendectomy, hysterectomy FamHx: Mother- ESRD/dialysis, renal cysts, DM, HTN; Aunt/Uncle- " from renal problems" SocHx: denies tobacco, alcohol, and drug use Allergies: aspirin (anaphylactic) Medications: denies Present on Admission - Present on Admission Any Indicators Present on Admission: No Review of Systems - Constitutional Constitutional: absent: Anorexia, Chills, Daytime Sleepiness, Excessive Sweating , Fever, Frequent Falls - EENT Eyes: absent: Blurred Vision, Change in Vision Ears: absent: Ear Discharge Nose/Mouth/Throat: absent: Epistaxis, Nasal Congestion, Nose Pain - Cardiovascular Cardiovascular: absent: Chest Pain with Activity, Claudication, Dyspnea on Exertion, Edema, Irregular Heart Rhythm, Leg Edema, Orthopnea - Respiratory Respiratory: Dyspnea. absent: Cough, Hemoptysis, Wheezing - Gastrointestinal Gastrointestinal: absent: Abdominal Pain, Bloating, Fecal Incontinence, Loose Stools, Nausea, Vomiting - Genitourinary Genitourinary: absent: Change in Urinary Stream, Difficulty Urinating - Menstruation Menstruation: absent: Currently Menstual - Musculoskeletal Musculoskeletal: absent: Back Pain, Stiffness, Tingling - Neurological Neurological: absent: Abnormal Hearing, Radicular Pain, Tingling, Tremor, Weakness - Psychiatric Psychiatric: absent: Anxiety, Panic Attacks, Suicidal Ideation - Endocrine Endocrine: absent: Fatigue, Palpitations Past Patient History - Infectious Disease Hx of Infectious Diseases: None - Past Medical History & Family History Past Medical History?: Yes - Past Social History Smoking Status: Never Smoked Chewing Tobacco Use: No Cigar Use: No Alcohol: None Drugs: Denies - CARDIAC Hx Hypertension: Yes - PULMONARY Hx Respiratory Disorders: Yes Other/Comment: 01/05/17 SOB. - NEUROLOGICAL Hx Neurological Disorder: No - HEENT Hx HEENT Problems: No - RENAL Hx Chronic Kidney Disease: Yes Hx Kidney Stones: No - ENDOCRINE/METABOLIC Hx Endocrine Disorders: No - HEMATOLOGICAL/ONCOLOGICAL Hx Blood Disorders: No - INTEGUMENTARY Hx Dermatological Problems: No - MUSCULOSKELETAL/RHEUMATOLOGICAL Hx Arthritis: Yes (Both Knees) - GASTROINTESTINAL Hx Gastrointestinal Disorders: No - GENITOURINARY/GYNECOLOGICAL Hx Genitourinary Disorders: No Other/Comment: ESRD - PSYCHIATRIC Hx Substance Use: No - SURGICAL HISTORY Hx Appendectomy: Yes - ANESTHESIA Hx Anesthesia: Yes Hx Anesthesia Reactions: No Hx Malignant Hyperthermia: No Meds Allergies/Adverse Reactions: Allergies Allergy/AdvReac Type Severity Reaction Status Date / Time aspirin Allergy ANAPHYLAXIS Verified 01/12/17 09:53 Physical Exam - Constitutional Appears: Non-toxic, No Acute Distress - Head Exam Head Exam: ATRAUMATIC, NORMAL INSPECTION, NORMOCEPHALIC - Eye Exam Pupil Exam: NORMAL ACCOMODATION, PERRL. absent: Fixed, Irregular, Miosis, Mydriatic, Unequal - ENT Exam ENT Exam: Mucous Membranes Moist - Respiratory Exam Respiratory Exam: Clear to Auscultation Bilateral, NORMAL BREATHING PATTERN. absent: Prolonged Expiratory Phase, Rales, Rhonchi, Wheezes - Cardiovascular Exam Cardiovascular Exam: REGULAR RHYTHM, Systolic Murmur - GI/Abdominal Exam GI & Abdominal Exam: Normal Bowel Sounds, Soft. absent: Distended, Firm, Tenderness - Extremities Exam Extremities exam: Positive for: normal capillary refill, pedal pulses present - Neurological Exam Neurological exam: Alert, CN II-XII Intact, Oriented x3 - Psychiatric Exam Psychiatric exam: Normal Affect, Normal Mood - Skin Skin Exam: Dry, Intact, Normal Color, Warm Results - Vital Signs Recent Vital Signs: Last Vital Signs Temp 98.4 F 01/20/17 17:24 Pulse 82 01/20/17 17:24 Resp 19 01/20/17 17:24 BP 152/90 H 01/20/17 17:24 Pulse Ox 100 01/20/17 17:24 - Labs Result Diagrams: 01/20/17 15:37 01/20/17 15:37 Labs: Laboratory Results - last 24 hr 01/20/17 01/20/17 01/20/17 15:37 15:37 15:37 WBC 8.8 RBC 4.29 Hgb 12.0 Hct 38.5 MCV 89.6 MCH 28.0 MCHC 31.2 L RDW 13.7 Plt Count 265 MPV 9.7 Neut % (Auto) 60.3 Lymph % (Auto) 23.3 [place] % (Auto) 10.4 H Eos % (Auto) 5.5 H Baso % (Auto) 0.5 Neut # 5.3 Lymph # 2.0 [place] # 0.9 H Eos # 0.5 Baso # 0.0 PT 11.7 INR 1.0 APTT 33 Sodium 138 Potassium 5.6 H Chloride 97 L Carbon Dioxide 27 Anion Gap 20 BUN 77 H Creatinine 18.3 H* D Est GFR ( Amer) 2 Est GFR (Non-Af Amer) 2 Random Glucose 110 H Calcium 9.1 Total Bilirubin 0.9 AST 21 ALT 31 Alkaline Phosphatase 421 H Troponin I 0.0250 Total Protein 7.2 Albumin 4.2 Globulin 3.0 Albumin/Globulin Ratio 1.4 Influenza Typ A,B (EIA) 01/20/17 17:11 WBC RBC Hgb Hct MCV MCH MCHC RDW Plt Count MPV Neut % (Auto) Lymph % (Auto) [place] % (Auto) Eos % (Auto) Baso % (Auto) Neut # Lymph # [place] # Eos # Baso # PT INR APTT Sodium Potassium Chloride Carbon Dioxide Anion Gap BUN Creatinine Est GFR ( Amer) Est GFR (Non-Af Amer) Random Glucose Calcium Total Bilirubin AST ALT Alkaline Phosphatase Troponin I Total Protein Albumin Globulin Albumin/Globulin Ratio Influenza Typ A,B (EIA) Negative for flu a/b Assessment & Plan (1) End stage renal failure on dialysis Status: Acute Comment: BUN/Cr 77/18.3. Scheduled for Dialysis tonight. Consult Nephro- DrBridgette Frazier. started on Phoslo 666mg PO TIDCC (2) Dyspnea Status: Acute Comment: Likely secondary to missed dialysis. CXR- 01/20/17- no active pulmonary disease. EKG- NSR- 73 bpm (3) HTN (hypertension) Status: Acute Comment: Started on Norvasc 5mg PO Daily (4) Prophylactic measure Status: Acute Comment: Protonix 40mg PO Daily. Heparin 5000U SC Q8h. SCDs <Keith,Peter H - Last Filed: 01/21/17 07:45> Results - Vital Signs Recent Vital Signs: Last Vital Signs Temp 97.8 F 01/20/17 23:45 Pulse 89 01/20/17 23:45 Resp 20 01/20/17 23:45 BP 138/82 01/20/17 23:45 Pulse Ox 96 01/20/17 23:45 - Labs Result Diagrams: 01/20/17 15:37 01/20/17 15:37 Labs: Laboratory Results - last 24 hr 01/20/17 01/20/17 01/20/17 15:37 15:37 15:37 WBC 8.8 RBC 4.29 Hgb 12.0 Hct 38.5 MCV 89.6 MCH 28.0 MCHC 31.2 L RDW 13.7 Plt Count 265 MPV 9.7 Neut % (Auto) 60.3 Lymph % (Auto) 23.3 [place] % (Auto) 10.4 H Eos % (Auto) 5.5 H Baso % (Auto) 0.5 Neut # 5.3 Lymph # 2.0 [place] # 0.9 H Eos # 0.5 Baso # 0.0 PT 11.7 INR 1.0 APTT 33 Sodium 138 Potassium 5.6 H Chloride 97 L Carbon Dioxide 27 Anion Gap 20 BUN 77 H Creatinine 18.3 H* D Est GFR ( Amer) 2 Est GFR (Non-Af Amer) 2 Random Glucose 110 H Calcium 9.1 Total Bilirubin 0.9 AST 21 ALT 31 Alkaline Phosphatase 421 H Troponin I 0.0250 Total Protein 7.2 Albumin 4.2 Globulin 3.0 Albumin/Globulin Ratio 1.4 Influenza Typ A,B (EIA) 01/20/17 17:11 WBC RBC Hgb Hct MCV MCH MCHC RDW Plt Count MPV Neut % (Auto) Lymph % (Auto) [place] % (Auto) Eos % (Auto) Baso % (Auto) Neut # Lymph # [place] # Eos # Baso # PT INR APTT Sodium Potassium Chloride Carbon Dioxide Anion Gap BUN Creatinine Est GFR ( Amer) Est GFR (Non-Af Amer) Random Glucose Calcium Total Bilirubin AST ALT Alkaline Phosphatase Troponin I Total Protein Albumin Globulin Albumin/Globulin Ratio Influenza Typ A,B (EIA) Negative for flu a/b Attending/Attestation - Attestation I have personally seen and examined this patient.: Yes I have fully participated in the care of the patient.: Yes I have reviewed all pertinent clinical information: Yes Notes (Text): Medical attending: Patient was seen and examined by me as well, but agree with the above note by hospitalist medical director. This is a very nice woman who is well known to the medical service. She is from the [facility] [place] and is visiting here until February. She has a history of end-stage renal disease (from a history of polycystic kidney disease ) and she' s been getting dialysis in her home country, however she does not have any insurance and unfortunately doesn't qualify for Medicaid or Medicare. So she comes the hospital quite often for hemodialysis The previous time we saw her she had a very elevated potassium level of 8.8. However this time that is not the case. She doesn't look as exhausted or fatigue compared to the previous times I have seen her when she comes un needing dialysis. Thank you very much, Jeyson Keith
--- NOTE | 2017-01-21 07:03 | CP.PCM.PN ---
<Savannah Olmedo - Last Filed: 01/21/17 13:51> Subjective - Date & Time of Evaluation Date of Evaluation: 01/21/17 Time of Evaluation: 07:00 - Subjective Subjective: Progress note Patient seen and examined at bedside. Patient states she's tired and has a little bit of pain. Patient had dialysis last night. No acute events overnights. Denies fever, chills, nausea, vomiting. Objective - Vital Signs/Intake and Output Vital Signs (last 24 hours): Temp Pulse Resp BP Pulse Ox 97.8 F 89 20 138/82 96 01/20/17 23:45 01/20/17 23:45 01/20/17 23:45 01/20/17 23:45 01/20/17 23:45 Intake and Output: 01/21/17 01/21/17 06:59 18:59 Intake Total 120 Balance 120 - Medications Medications: Current Medications Amlodipine Besylate (Norvasc) 5 mg PO DAILY [facility] Calcium Acetate (Phoslo) 667 mg PO TIDCC [facility] Heparin Sodium (Porcine) (Heparin) 5,000 units SC Q8 [facility] Last Admin: 01/21/17 05:26 Dose: 5,000 units Pantoprazole Sodium (Protonix Ec Tab) 40 mg PO DAILY [facility] - Labs Labs: 01/20/17 15:37 01/20/17 15:37 PT 11.7 SECONDS (9.7-12.2) 01/20/17 15:37 INR 1.0 01/20/17 15:37 APTT 33 SECONDS (21-34) 01/20/17 15:37 - Constitutional Appears: Non-toxic - Head Exam Head Exam: ATRAUMATIC, NORMAL INSPECTION, NORMOCEPHALIC - Eye Exam Eye Exam: EOMI, Normal appearance - ENT Exam ENT Exam: Mucous Membranes Moist - Neck Exam Neck Exam: Full ROM - Respiratory Exam Respiratory Exam: NORMAL BREATHING PATTERN. absent: Accessory Muscle Use, Decreased Breath Sounds - Cardiovascular Exam Cardiovascular Exam: REGULAR RHYTHM, +S1, +S2 - GI/Abdominal Exam GI & Abdominal Exam: Soft. absent: Tenderness - Extremities Exam Extremities Exam: Full ROM, Normal Inspection. absent: Pedal Edema - Neurological Exam Neurological Exam: Awake - Psychiatric Exam Psychiatric exam: Normal Affect, Normal Mood - Skin Skin Exam: Dry, Intact, Normal Color, Warm Assessment and Plan - Assessment and Plan (Free Text) Assessment: (1) End stage renal failure on dialysis Status: Acute Comment: 01/20 BUN/Cr 77/18.3 01/21 BUN/Cr 35/11.0 01/20 Dialysis Consult Nephro- Dr. Frazier 01/20 started Phoslo 666mg PO TIDCC (2) Dyspnea Status: Acute Comment: Likely secondary to missed dialysis CXR- 01/20/17- no active pulmonary disease EKG- NSR- 73 bpm (3) HTN (hypertension) Status: Acute Comment: Started on Norvasc 5mg PO Daily (4) Prophylaxis Status: Acute Comment: Protonix 40mg PO Daily Heparin 5000U SC Q8h. SCDs Savannah Olmedo DO PGY1 <Jeyson Keith H - Last Filed: 01/21/17 14:09> Objective - Vital Signs/Intake and Output Vital Signs (last 24 hours): Temp Pulse Resp BP Pulse Ox 98.2 F 83 20 139/86 96 01/21/17 08:00 01/21/17 08:00 01/21/17 08:00 01/21/17 08:00 01/21/17 08:00 Intake and Output: 01/21/17 01/21/17 06:59 18:59 Intake Total 120 Balance 120 - Medications Medications: Current Medications Amlodipine Besylate (Norvasc) 5 mg PO DAILY [facility] Last Admin: 01/21/17 09:17 Dose: 5 mg Calcium Acetate (Phoslo) 667 mg PO TIDCC [facility] Last Admin: 01/21/17 13:29 Dose: 667 mg Heparin Sodium (Porcine) (Heparin) 5,000 units SC Q8 [facility] Last Admin: 01/21/17 13:28 Dose: 5,000 units Pantoprazole Sodium (Protonix Ec Tab) 40 mg PO DAILY [facility] Last Admin: 01/21/17 09:17 Dose: 40 mg - Labs Labs: 01/21/17 07:41 01/21/17 07:41 PT 11.7 SECONDS (9.7-12.2) 01/20/17 15:37 INR 1.0 01/20/17 15:37 APTT 33 SECONDS (21-34) 01/20/17 15:37 Attending/Attestation - Attestation I have personally seen and examined this patient.: Yes I have fully participated in the care of the patient.: Yes I have reviewed all pertinent clinical information, including history, physical exam and plan: Yes Notes (Text): 01/21/17 14:09 Medical attending: Patient was seen and examined by me, agree with the above note by medical clinic manager. The patient reported that she is feeling okay however still having some weakness and fatigue. She had hemodialysis yesterday. Her potassium level did come down with the hemodialysis. As mentioned previously the patient is here until February. Until she returns that point to her home country. As also mentioned previously before the patient does not qualify for Medicaid or Medicare Thank you very much, Jeyson Keith
[2017-01-21 07:56] LABS: BASO # 0.1 K/uL (0.0-0.2); BASO % 0.8 % (0.0-2.0); EOS # 0.4 K/uL (0.0-0.7); EOS % 5.1 % (0.0-4.0); HEMATOCRIT 38.8 % (34.0-47.0); LYMPH # 1.9 K/uL (1.0-4.3); LYMPH % 26.3 % (20.0-40.0); MEAN CELL VOLUME 88.8 fL (81.0-99.0); MEAN CORPUSCULAR HEMOGLOBIN 28.2 pg (27.0-31.0); MEAN CORPUSCULAR HGB CONC 31.8 g/dL (33.0-37.0); MEAN PLATELET VOLUME 9.6 fL (7.2-11.7); MONO # 0.6 K/uL (0.0-0.8); MONO % 8.8 % (0.0-10.0); NRBC % 0.2 % (0.0-2.0); RED CELL DISTRIBUTION WIDTH 13.5 % (11.5-14.5); WHITE BLOOD COUNT 7.1 K/uL (4.8-10.8)
[2017-01-21 08:46] LABS: ALB/GLOB RATIO 1.3 (1.0-2.1); BILIRUBIN,TOTAL 0.6 mg/dL (0.2-1.3); CALCIUM 8.8 mg/dl (8.6-10.4); MAGNESIUM 2.1 mg/dL (1.6-2.3); PHOSPHOROUS 5.4 mg/dL (2.5-4.5); POTASSIUM 4.4 mmol/L (3.6-5.2); TOTAL PROTEIN 6.5 g/dL (6.3-8.3)
[2017-01-21] MEDS: Pantoprazole 40 mg EC Tab PO SCH (09:17)
--- NOTE | 2017-01-21 11:03 | CP.PCM.CON ---
History of Present Illness - History of Present Illness History of Present Illness: HPI: Patient is a 51 year old female with PMHx of polycystic kidney disease, ESRD presenting to the ED requesting dialysis. Patient states she has been on dialysis for about 2 years. She recently came from [place] to visit her sick mother. Due to her lack of insurance, she has been coming to the hospital for dialysis. She was recently admitted on 01/05 and 01/12 for dialysis, last treatment was on 01/13/17, before she was discharged. She states she does not take any medications at home, though she recalls she was given some medications when she was here last. She reports she is mildly short of breath, and feels like her lips and eyes are more swollen than usual. She denies any chest pain, fevers, chills. Pt was emergently dialyzed last night. PMD: none PMHx: PCKD, ESRD SurgHx: fibroma 2001, appendectomy, hysterectomy FamHx: Mother- ESRD/dialysis, renal cysts, DM, HTN; Aunt/Uncle- " from renal problems" SocHx: denies tobacco, alcohol, and drug use Allergies: aspirin (anaphylactic) Medications: denies Review of Systems - Review of Systems All systems: reviewed and no additional remarkable complaints except (as per HPI ) Past Patient History - Infectious Disease Hx of Infectious Diseases: None - Past Medical History & Family History Past Medical History?: Yes - Past Social History Smoking Status: Never Smoked - CARDIAC Hx Hypertension: Yes - PULMONARY Hx Respiratory Disorders: Yes Other/Comment: 01/05/17 SOB. - NEUROLOGICAL Hx Neurological Disorder: No - HEENT Hx HEENT Problems: No - RENAL Hx Chronic Kidney Disease: Yes Hx Kidney Stones: No - ENDOCRINE/METABOLIC Hx Endocrine Disorders: No - HEMATOLOGICAL/ONCOLOGICAL Hx Blood Disorders: No - INTEGUMENTARY Hx Dermatological Problems: No - MUSCULOSKELETAL/RHEUMATOLOGICAL Hx Falls: No - GASTROINTESTINAL Hx Gastrointestinal Disorders: No - GENITOURINARY/GYNECOLOGICAL Hx Genitourinary Disorders: No Other/Comment: ESRD - PSYCHIATRIC Hx Substance Use: No - SURGICAL HISTORY Hx Appendectomy: Yes Other/Comment: no further information provided by patient - ANESTHESIA Hx Anesthesia: Yes Hx Anesthesia Reactions: No Hx Malignant Hyperthermia: No Meds Allergies/Adverse Reactions: Allergies Allergy/AdvReac Type Severity Reaction Status Date / Time aspirin Allergy ANAPHYLAXIS Verified 01/12/17 09:53 - Medications Medications: Current Medications Amlodipine Besylate (Norvasc) 5 mg PO DAILY [facility] Last Admin: 01/21/17 09:17 Dose: 5 mg Calcium Acetate (Phoslo) 667 mg PO TIDCC [facility] Last Admin: 01/21/17 09:17 Dose: 667 mg Heparin Sodium (Porcine) (Heparin) 5,000 units SC Q8 [facility] Last Admin: 01/21/17 05:26 Dose: 5,000 units Pantoprazole Sodium (Protonix Ec Tab) 40 mg PO DAILY [facility] Last Admin: 01/21/17 09:17 Dose: 40 mg Physical Exam - Constitutional Appears: Non-toxic, No Acute Distress, Chronically Ill - Head Exam Head Exam: NORMAL INSPECTION - Eye Exam Eye Exam: Normal appearance Pupil Exam: NORMAL ACCOMODATION - ENT Exam ENT Exam: Mucous Membranes Moist, Normal Exam - Neck Exam Neck exam: Positive for: Normal Inspection - Respiratory Exam Respiratory Exam: Clear to Auscultation Bilateral, NORMAL BREATHING PATTERN - Cardiovascular Exam Cardiovascular Exam: REGULAR RHYTHM, RRR - GI/Abdominal Exam GI & Abdominal Exam: Distended, Normal Bowel Sounds, Soft - Extremities Exam Extremities exam: Positive for: normal inspection (lue avf with thrill) Results - Vital Signs Recent Vital Signs: Last Vital Signs Temp 98.2 F 01/21/17 08:00 Pulse 83 01/21/17 08:00 Resp 20 01/21/17 08:00 BP 139/86 01/21/17 08:00 Pulse Ox 96 01/21/17 08:00 - Labs Result Diagrams: 01/21/17 07:41 01/21/17 07:41 Labs: Laboratory Results - last 24 hr 01/20/17 01/20/17 01/20/17 15:37 15:37 15:37 WBC 8.8 RBC 4.29 Hgb 12.0 Hct 38.5 MCV 89.6 MCH 28.0 MCHC 31.2 L RDW 13.7 Plt Count 265 MPV 9.7 Neut % (Auto) 60.3 Lymph % (Auto) 23.3 [place] % (Auto) 10.4 H Eos % (Auto) 5.5 H Baso % (Auto) 0.5 Neut # 5.3 Lymph # 2.0 [place] # 0.9 H Eos # 0.5 Baso # 0.0 PT 11.7 INR 1.0 APTT 33 Sodium 138 Potassium 5.6 H Chloride 97 L Carbon Dioxide 27 Anion Gap 20 BUN 77 H Creatinine 18.3 H* D Est GFR ( Amer) 2 Est GFR (Non-Af Amer) 2 Random Glucose 110 H Hemoglobin A1c Calcium 9.1 Phosphorus Magnesium Total Bilirubin 0.9 AST 21 ALT 31 Alkaline Phosphatase 421 H Troponin I 0.0250 Total Protein 7.2 Albumin 4.2 Globulin 3.0 Albumin/Globulin Ratio 1.4 Triglycerides Cholesterol LDL Cholesterol Direct HDL Cholesterol Influenza Typ A,B (EIA) 01/20/17 01/21/17 01/21/17 17:11 07:41 07:41 WBC 7.1 RBC 4.37 Hgb 12.3 Hct 38.8 MCV 88.8 MCH 28.2 MCHC 31.8 L RDW 13.5 Plt Count 241 MPV 9.6 Neut % (Auto) 59.0 Lymph % (Auto) 26.3 [place] % (Auto) 8.8 Eos % (Auto) 5.1 H Baso % (Auto) 0.8 Neut # 4.2 Lymph # 1.9 [place] # 0.6 Eos # 0.4 Baso # 0.1 PT INR APTT Sodium 138 Potassium 4.4 Chloride 97 L Carbon Dioxide 30 Anion Gap 16 BUN 35 H Creatinine 11.0 H* D Est GFR ( Amer) 4 Est GFR (Non-Af Amer) 4 Random Glucose 68 Hemoglobin A1c Calcium 8.8 Phosphorus 5.4 H Magnesium 2.1 Total Bilirubin 0.6 AST 19 ALT 36 Alkaline Phosphatase 419 H Troponin I Total Protein 6.5 Albumin 3.7 Globulin 2.8 Albumin/Globulin Ratio 1.3 Triglycerides 116 D Cholesterol 157 LDL Cholesterol Direct 92 HDL Cholesterol 38 Influenza Typ A,B (EIA) Negative for flu a/b 01/21/17 07:41 WBC RBC Hgb Hct MCV MCH MCHC RDW Plt Count MPV Neut % (Auto) Lymph % (Auto) [place] % (Auto) Eos % (Auto) Baso % (Auto) Neut # Lymph # [place] # Eos # Baso # PT INR APTT Sodium Potassium Chloride Carbon Dioxide Anion Gap BUN Creatinine Est GFR ( Amer) Est GFR (Non-Af Amer) Random Glucose Hemoglobin A1c 5.7 Calcium Phosphorus Magnesium Total Bilirubin AST ALT Alkaline Phosphatase Troponin I Total Protein Albumin Globulin Albumin/Globulin Ratio Triglycerides Cholesterol LDL Cholesterol Direct HDL Cholesterol Influenza Typ A,B (EIA) Assessment & Plan (1) ADPKD (autosomal dominant polycystic kidney) Status: Acute (2) End stage renal failure on dialysis Status: Acute (3) Fluid overload Status: Acute (4) HTN (hypertension) Status: Acute (5) Hyperkalemia Status: Acute - Assessment and Plan (Free Text) Assessment: missed hd fluid ovrload hyperkalemia non compliance htn plan: hd again today outpt kayexelate advised
--- NOTE | 2017-01-21 21:01 | CARD ---
APPROVED REPORT EKG Measurement Heart [id number] <Conclusion> Normal sinus rhythm with sinus arrhythmia Possible Left atrial enlargement Inferior infarct, age undetermined Anteroseptal infarct, age undetermined Abnormal ECG
[2017-01-21 22:08] VITALS: RESP 20
[2017-01-22 07:02] LABS: BASO # 0.1 K/uL (0.0-0.2); BASO % 0.9 % (0.0-2.0); EOS # 0.3 K/uL (0.0-0.7); EOS % 4.9 % (0.0-4.0); HEMATOCRIT 42.2 % (34.0-47.0); LYMPH # 2.3 K/uL (1.0-4.3); LYMPH % 32.8 % (20.0-40.0); MEAN CELL VOLUME 89.7 fL (81.0-99.0); MEAN CORPUSCULAR HEMOGLOBIN 28.6 pg (27.0-31.0); MEAN CORPUSCULAR HGB CONC 31.9 g/dL (33.0-37.0); MEAN PLATELET VOLUME 9.4 fL (7.2-11.7); MONO # 0.8 K/uL (0.0-0.8); MONO % 12.3 % (0.0-10.0); RED CELL DISTRIBUTION WIDTH 13.7 % (11.5-14.5); WHITE BLOOD COUNT 6.9 K/uL (4.8-10.8)
[2017-01-22 08:14] LABS: ALB/GLOB RATIO 1.3 (1.0-2.1); BILIRUBIN,TOTAL 0.6 mg/dL (0.2-1.3); CALCIUM 9.9 mg/dl (8.6-10.4); MAGNESIUM 2.1 mg/dL (1.6-2.3); PHOSPHOROUS 5.2 mg/dL (2.5-4.5); POTASSIUM 4.4 mmol/L (3.6-5.2)
[2017-01-22 09:23] VITALS: PULSE 86
[2017-01-22 09:29] VITALS: BP 125/78; TEMP 98.1; O2SAT 95
--- NOTE | 2017-01-22 09:29 | CP.PCM.PN ---
Subjective - Date & Time of Evaluation Date of Evaluation: 01/22/17 Time of Evaluation: 09:22 - Subjective Subjective: PGY-[address] Keith No acute events overnight. Patient had a dialysis session yesterday and complained of headache afterwards which improved with tylenol. Objective - Vital Signs/Intake and Output Vital Signs (last 24 hours): Temp Pulse Resp BP Pulse Ox 98.4 F 84 20 127/83 96 01/21/17 23:50 01/22/17 00:00 01/21/17 23:50 01/21/17 23:50 01/21/17 23:50 Intake and Output: 01/22/17 01/22/17 06:59 18:59 Intake Total 275 Balance 275 - Medications Medications: Current Medications Acetaminophen (Tylenol 325mg Tab) 650 mg PO Q6 PRN PRN Reason: Pain, moderate (4-7) Amlodipine Besylate (Norvasc) 5 mg PO DAILY [facility] Last Admin: 01/21/17 09:17 Dose: 5 mg Calcium Acetate (Phoslo) 667 mg PO TIDCC [facility] Last Admin: 01/21/17 18:25 Dose: 667 mg Heparin Sodium (Porcine) (Heparin) 5,000 units SC Q8 [facility] Last Admin: 01/22/17 05:40 Dose: 5,000 units Pantoprazole Sodium (Protonix Ec Tab) 40 mg PO DAILY [facility] Last Admin: 01/21/17 09:17 Dose: 40 mg - Labs Labs: 01/22/17 06:48 01/22/17 06:48 PT 11.7 SECONDS (9.7-12.2) 01/20/17 15:37 INR 1.0 01/20/17 15:37 APTT 33 SECONDS (21-34) 01/20/17 15:37 - Additional Findings Additional findings: - Constitutional Appears: Non-toxic - Head Exam Head Exam: ATRAUMATIC, NORMAL INSPECTION, NORMOCEPHALIC - Eye Exam Eye Exam: EOMI, Normal appearance - ENT Exam ENT Exam: Mucous Membranes Moist - Neck Exam Neck Exam: Full ROM - Respiratory Exam Respiratory Exam: NORMAL BREATHING PATTERN. absent: Accessory Muscle Use, Decreased Breath Sounds - Cardiovascular Exam Cardiovascular Exam: REGULAR RHYTHM, +S1, +S2 - GI/Abdominal Exam GI & Abdominal Exam: Soft. absent: Tenderness - Extremities Exam Extremities Exam: Full ROM, Normal Inspection. absent: Pedal Edema left arm AV shunt with dressing dry and intact. positive bruit, thrill. - Neurological Exam Neurological Exam: Awake - Psychiatric Exam Psychiatric exam: Normal Affect, Normal Mood - Skin Skin Exam: Dry, Intact, Normal Color, Warm Assessment and Plan - Assessment and Plan (Free Text) Assessment: (1) End stage renal failure on dialysis 2/2 to Autosomal Dominant Polycystic Kidney Status: Acute Comment: Consult Nephro- Dr. Frazier Elevated BUN/Cr improved after 2 hemodialysis sessions (01/20 and 01/21) Hyperkalemia resolved Phoslo 666mg PO TIDCC started 01/20 Per [employer], Dr Arias, outpatient kayexelate advised (2) Dyspnea Status: Acute Comment: Likely secondary to missed dialysis and fluid overload CXR- 01/20/17- no active pulmonary disease EKG- NSR- 73 bpm (3) HTN (hypertension) Status: Acute Comment: Started on Norvasc 5mg PO Daily BP well controlled (4) Prophylaxis Status: Acute Comment: Protonix 40mg PO Daily Heparin 5000U SC Q8h. SCDs
[2017-01-22] MEDS: Pantoprazole 40 mg EC Tab PO SCH (10:50)
--- NOTE | 2017-01-22 13:02 | CP.PCM.DIS ---
<Ector Heaton - Last Filed: 01/22/17 12:55> Provider - Provider Date of Admission: 01/20/17 16:15 Attending physician: Jeyson Keith DO Primary care physician: PMD: none Consults: Pharmacognosy Teacher: Dr Avalos Time Spent in preparation of Discharge (in minutes): 40 Hospital Course - Lab Results Lab Results: Most Recent Lab Values WBC 6.9 K/uL (4.8-10.8) 01/22/17 06:48 RBC 4.70 Mil/uL (3.80-5.20) 01/22/17 06:48 Hgb 13.5 g/dL (11.0-16.0) 01/22/17 06:48 Hct 42.2 % (34.0-47.0) 01/22/17 06:48 MCV 89.7 fL (81.0-99.0) 01/22/17 06:48 MCH 28.6 pg (27.0-31.0) 01/22/17 06:48 MCHC 31.9 g/dL (33.0-37.0) L 01/22/17 06:48 RDW 13.7 % (11.5-14.5) 01/22/17 06:48 Plt Count 224 K/uL (130-400) 01/22/17 06:48 MPV 9.4 fL (7.2-11.7) 01/22/17 06:48 Neut % (Auto) 49.1 % (50.0-75.0) L 01/22/17 06:48 Lymph % (Auto) 32.8 % (20.0-40.0) 01/22/17 06:48 Baca % (Auto) 12.3 % (0.0-10.0) H 01/22/17 06:48 Eos % (Auto) 4.9 % (0.0-4.0) H 01/22/17 06:48 Baso % (Auto) 0.9 % (0.0-2.0) 01/22/17 06:48 Neut # 3.4 K/uL (1.8-7.0) 01/22/17 06:48 Lymph # 2.3 K/uL (1.0-4.3) 01/22/17 06:48 Baca # 0.8 K/uL (0.0-0.8) 01/22/17 06:48 Eos # 0.3 K/uL (0.0-0.7) 01/22/17 06:48 Baso # 0.1 K/uL (0.0-0.2) 01/22/17 06:48 PT 11.7 SECONDS (9.7-12.2) 01/20/17 15:37 INR 1.0 01/20/17 15:37 APTT 33 SECONDS (21-34) 01/20/17 15:37 Sodium 139 mmol/L (132-148) 01/22/17 06:48 Potassium 4.4 mmol/L (3.6-5.2) 01/22/17 06:48 Chloride 96 mmol/L (98-107) L 01/22/17 06:48 Carbon Dioxide 34 mmol/L (22-30) H 01/22/17 06:48 Anion Gap 14 (10-20) 01/22/17 06:48 BUN 21 mg/dL (7-17) H 01/22/17 06:48 Creatinine 7.8 mg/dL (0.7-1.2) H* D 01/22/17 06:48 Est GFR ( Amer) 7 01/22/17 06:48 Est GFR (Non-Af Amer) 5 01/22/17 06:48 POC Glucose (mg/dL) 115 mg/dL (65-110) H 01/21/17 16:25 Random Glucose 84 mg/dL (65-105) 01/22/17 06:48 Hemoglobin A1c 5.7 % (4.2-6.5) 01/21/17 07:41 Calcium 9.9 mg/dl (8.6-10.4) 01/22/17 06:48 Phosphorus 5.2 mg/dL (2.5-4.5) H 01/22/17 06:48 Magnesium 2.1 mg/dL (1.6-2.3) 01/22/17 06:48 Total Bilirubin 0.6 mg/dL (0.2-1.3) 01/22/17 06:48 AST 29 U/L (14-36) 01/22/17 06:48 ALT 34 U/L (9-52) 01/22/17 06:48 Alkaline Phosphatase 446 U/L (38-126) H 01/22/17 06:48 Troponin I 0.0250 ng/mL (0.00-0.120) 01/20/17 15:37 Total Protein 7.0 g/dL (6.3-8.3) 01/22/17 06:48 Albumin 4.0 g/dL (3.5-5.0) 01/22/17 06:48 Globulin 3.0 gm/dL (2.2-3.9) 01/22/17 06:48 Albumin/Globulin Ratio 1.3 (1.0-2.1) 01/22/17 06:48 Triglycerides 116 mg/dL (0-149) D 01/21/17 07:41 Cholesterol 157 mg/dL (0-199) 01/21/17 07:41 LDL Cholesterol Direct 92 mg/dL (0-129) 01/21/17 07:41 HDL Cholesterol 38 mg/dL (30-70) 01/21/17 07:41 Influenza Typ A,B (EIA) Negative for flu a/b (NEGATIVE) 01/20/17 17:11 - Hospital Course Hospital Course: cc: "i need dialysis" HPI: Patient is a 51 year old female with PMHx of polycystic kidney disease, ESRD presenting to the ED requesting dialysis. Patient states she has been on dialysis for about 2 years. She recently came from [place] to visit her sick mother. Due to her lack of insurance, she has been coming to the hospital for dialysis. She was recently admitted on 01/05 and 01/12 for dialysis, last treatment was on 01/13/17, before she was discharged. She states she does not take any medications at home, though she recalls she was given some medications when she was here last. She reports she is mildly short of breath, and feels like her lips and eyes are more swollen than usual. She denies any chest pain, fevers, chills. PMD: none PMHx: PCKD, ESRD SurgHx: fibroma 2001, appendectomy, hysterectomy FamHx: Mother- ESRD/dialysis, renal cysts, DM, HTN; Aunt/Uncle- " from renal problems" SocHx: denies tobacco, alcohol, and drug use Allergies: aspirin (anaphylactic) Medications: denies Hospital Course: This is a patient with ESRD on HD 2/2 to autosomal dominant polycystic kidney disease who is unable to receive hemodialysis outpatient (due to insurance issues) thus comes to [facility] to receive hemodialysis when symptomatic. She is [place] to be with her sick mother, she says in her home country she receives scheduled HD. On this visit she received HD twice (on 01/20 and 01/21) and her symptoms resolved and her BUN and Cr greatly improved. In addition, her hyperkalemia also resolved. She was started on phoslo 667mg po tidcc. Pharmacognosy Teacher, Dr Avalos was consulted to assist in her care. She complained of dyspnea (likely 2/2 to fluid overload), a CXR showed no active diease and EKG showed normal sinus rhythm. This symptom had resolved after HD. She was hypertensive and was started on norvasc 5mg po qd. Pharmacognosy Teacher, Dr Arias suggested she take kayexalate outpatient on a daily basis (a script was given to her). Discharge Exam - Head Exam Head Exam: ATRAUMATIC, NORMAL INSPECTION, NORMOCEPHALIC - Additional Findings Additional findings: - Constitutional Appears: Non-toxic - Head Exam Head Exam: ATRAUMATIC, NORMAL INSPECTION, NORMOCEPHALIC - Eye Exam Eye Exam: EOMI, Normal appearance - ENT Exam ENT Exam: Mucous Membranes Moist - Neck Exam Neck Exam: Full ROM - Respiratory Exam Respiratory Exam: NORMAL BREATHING PATTERN. absent: Accessory Muscle Use, Decreased Breath Sounds - Cardiovascular Exam Cardiovascular Exam: REGULAR RHYTHM, +S1, +S2 - GI/Abdominal Exam GI & Abdominal Exam: Soft. absent: Tenderness - Extremities Exam Extremities Exam: Full ROM, Normal Inspection. absent: Pedal Edema left arm AV shunt with dressing dry and intact. positive bruit, thrill. - Neurological Exam Neurological Exam: Awake - Psychiatric Exam Psychiatric exam: Normal Affect, Normal Mood - Skin Skin Exam: Dry, Intact, Normal Color, Warm Discharge Plan - Discharge Medications Prescriptions: amLODIPine [Norvasc] 5 mg PO DAILY #30 tab Bisacodyl [Dulcolax] 5 mg PO DAILY 5 Days #5 ect Calcium Acetate [Phoslo] 667 mg PO BIDCC #60 tab Sodium Polystyrene Sulfonate [kayeXALATE Susp] 15 gm PO DAILY 30 Days #30 bottle - Follow Up Plan Condition: STABLE Disposition: HOME/ ROUTINE Instructions: Laxative, Stimulant (By mouth), Amlodipine (By mouth), Calcium Acetate (By mouth), Sodium Polystyrene Sulfonate (By mouth), Heart Failure (DC) , Renal Failure Diet (DC), Dialysis Diet (DC), End Stage Kidney Disease (DC) Additional Instructions: Patient is medically stable for discharge. Patient will be sent home with scripts for the following medications which she should take as instructed: Amlodipine [norvasc] 5mg po qd (for high blood pressure) Bisacodyl [dulcolax] 5mg po qd (for constipation) Calcium acetate [phoslo] 667mg po BIDCC (for high potassium) sodium polystyrene sulfonate [kayexalate suspension] 15g po qd (for high potassium) Patient should attempt to connect with a primary medical doctor who can follow her outpatient. Instructions were given to her to follow-up and establish care in [facility]. If symptoms return or worsen, return to ER. Referrals: [facility] [Outside] <Jeyson Keith - Last Filed: 01/22/17 14:32> Provider - Provider Date of Admission: 01/20/17 16:15 Attending physician: Jeyson Keith DO Hospital Course - Lab Results Lab Results: Most Recent Lab Values WBC 6.9 K/uL (4.8-10.8) 01/22/17 06:48 RBC 4.70 Mil/uL (3.80-5.20) 01/22/17 06:48 Hgb 13.5 g/dL (11.0-16.0) 01/22/17 06:48 Hct 42.2 % (34.0-47.0) 01/22/17 06:48 MCV 89.7 fL (81.0-99.0) 01/22/17 06:48 MCH 28.6 pg (27.0-31.0) 01/22/17 06:48 MCHC 31.9 g/dL (33.0-37.0) L 01/22/17 06:48 RDW 13.7 % (11.5-14.5) 01/22/17 06:48 Plt Count 224 K/uL (130-400) 01/22/17 06:48 MPV 9.4 fL (7.2-11.7) 01/22/17 06:48 Neut % (Auto) 49.1 % (50.0-75.0) L 01/22/17 06:48 Lymph % (Auto) 32.8 % (20.0-40.0) 01/22/17 06:48 Baca % (Auto) 12.3 % (0.0-10.0) H 01/22/17 06:48 Eos % (Auto) 4.9 % (0.0-4.0) H 01/22/17 06:48 Baso % (Auto) 0.9 % (0.0-2.0) 01/22/17 06:48 Neut # 3.4 K/uL (1.8-7.0) 01/22/17 06:48 Lymph # 2.3 K/uL (1.0-4.3) 01/22/17 06:48 Baca # 0.8 K/uL (0.0-0.8) 01/22/17 06:48 Eos # 0.3 K/uL (0.0-0.7) 01/22/17 06:48 Baso # 0.1 K/uL (0.0-0.2) 01/22/17 06:48 PT 11.7 SECONDS (9.7-12.2) 01/20/17 15:37 INR 1.0 01/20/17 15:37 APTT 33 SECONDS (21-34) 01/20/17 15:37 Sodium 139 mmol/L (132-148) 01/22/17 06:48 Potassium 4.4 mmol/L (3.6-5.2) 01/22/17 06:48 Chloride 96 mmol/L (98-107) L 01/22/17 06:48 Carbon Dioxide 34 mmol/L (22-30) H 01/22/17 06:48 Anion Gap 14 (10-20) 01/22/17 06:48 BUN 21 mg/dL (7-17) H 01/22/17 06:48 Creatinine 7.8 mg/dL (0.7-1.2) H* D 01/22/17 06:48 Est GFR ( Amer) 7 01/22/17 06:48 Est GFR (Non-Af Amer) 5 01/22/17 06:48 POC Glucose (mg/dL) 115 mg/dL (65-110) H 01/21/17 16:25 Random Glucose 84 mg/dL (65-105) 01/22/17 06:48 Hemoglobin A1c 5.7 % (4.2-6.5) 01/21/17 07:41 Calcium 9.9 mg/dl (8.6-10.4) 01/22/17 06:48 Phosphorus 5.2 mg/dL (2.5-4.5) H 01/22/17 06:48 Magnesium 2.1 mg/dL (1.6-2.3) 01/22/17 06:48 Total Bilirubin 0.6 mg/dL (0.2-1.3) 01/22/17 06:48 AST 29 U/L (14-36) 01/22/17 06:48 ALT 34 U/L (9-52) 01/22/17 06:48 Alkaline Phosphatase 446 U/L (38-126) H 01/22/17 06:48 Troponin I 0.0250 ng/mL (0.00-0.120) 01/20/17 15:37 Total Protein 7.0 g/dL (6.3-8.3) 01/22/17 06:48 Albumin 4.0 g/dL (3.5-5.0) 01/22/17 06:48 Globulin 3.0 gm/dL (2.2-3.9) 01/22/17 06:48 Albumin/Globulin Ratio 1.3 (1.0-2.1) 01/22/17 06:48 Triglycerides 116 mg/dL (0-149) D 01/21/17 07:41 Cholesterol 157 mg/dL (0-199) 01/21/17 07:41 LDL Cholesterol Direct 92 mg/dL (0-129) 01/21/17 07:41 HDL Cholesterol 38 mg/dL (30-70) 01/21/17 07:41 Influenza Typ A,B (EIA) Negative for flu a/b (NEGATIVE) 01/20/17 17:11 Attending/Attestation - Attestation I have personally seen and examined this patient.: Yes I have fully participated in the care of the patient.: Yes I have reviewed all pertinent clinical information, including history, physical exam and plan: Yes Notes (Text): 01/22/17 14:32 Medical attending: Patient was seen and examined by me, agrees the above note by emergency medical services coordinator. As mentioned previously the patient is visiting from a different country. She has a history of polycystic kidney disease. And so she has been on dialysis for about a year and a half. She is unable to qualify for Medicaid or Medicare in this country. From what I understand she is here until February when she will be returning to her home country. Encourage the patient to take PhosLo as well as Kayexalate to try to keep her potassium levels and phosphorus levels and check thank you Jeyson Keith
[2017-01-23] MEDS ORDERED: Influenza Vaccine 60 mcg/0.5 mL SYR (4YR UP) IM ONE (10:00)
== END 2017-01-22 14:20 | disposition home or self-care (01) | DRG 640 ==
LOC: C.ER 13:22 → C.9E 16:15 → C.6T 18:31
PROVIDERS: ADMIT Hospitalist; ATTEND Hospitalist
PROC: 5A1D70Z Performance of Urinary Filtration, Intermittent, Less than 6 Hours Per Day (ICD-10-PCS; principal; 2017-01-20)
DX: E87.70 Fluid overload, unspecified (principal); N18.6 End stage renal disease; Q61.2 Polycystic kidney, adult type; I12.0 Hypertensive chronic kidney disease with stage 5 chronic kidney disease or end stage renal disease; E87.5 Hyperkalemia; Z91.15 Patient's noncompliance with renal dialysis; Z90.49 Acquired absence of other specified parts of digestive tract; Z90.710 Acquired absence of both cervix and uterus; Z99.2 Dependence on renal dialysis

== ENCOUNTER 2017-01-27 11:15 | Observation (INO) | payer MEDICAID, OTHER ==
--- NOTE | 2017-01-27 13:48 | C.PDOC ---
History Of Present Illness 51 year old female with a PMHx of End Stage Renal Failure presents to the ED with complaints of chest pressure and shortness of breath beginning earlier today. Patient reports similar symptoms 6 days prior and was admitted to hospital to receive dialysis at that time. Patient reports she is visiting from [facility] where she regularly receives dialysis but now is receiving dialysis when feeling symptomatic. [place] has been in [place]. Patient reports receiving dialysis approximately 2x a week while here. 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 Patient denies urinary symptoms, weakness, numbness, fever, chills, nausea, vomiting, or other complaints at this time. Time Seen by Provider: 01/27/17 13:07 Chief Complaint (Nursing): Shortness Of Breath History Per: Patient History/Exam Limitations: no limitations Onset/Duration Of Symptoms: Hrs Current Symptoms Are (Timing): Still Present Quality: Pressure Exacerbating Factor(s): denies: Exertion, Laying Flat, Coughing Associated Symptoms: Other (shortness of breath). denies: Fever, Chills, Bloody Cough, Productive Cough, Heart Racing, Light-headedness Reports Recently: Seen In ED, Treated By A Physician, Hospitalized Recent travel outside of the [place]: No Additional History Per: Prior Records Past Medical History Reviewed: Historical Data, Nursing Documentation, Vital Signs Vital Signs: Last Vital Signs Temp 97.7 F 01/27/17 15:35 Pulse 70 01/27/17 15:35 Resp 18 01/27/17 15:35 BP 165/97 H 01/27/17 15:35 Pulse Ox 99 01/27/17 15:35 - Medical History PMH: Arthritis (Both Knees), HTN, Chronic Kidney Disease Comment Only: End Stage Renal Disease (T--FRI) Surgical History: Appendectomy - [facility] Procedures (01/20/17) DILATION OF LEFT CEPHALIC VEIN, PERCUTANEOUS APPROACH (11/22/15) PERFORMANCE OF URINARY FILTRATION, MULTIPLE (11/22/15) Family History: States: Unknown Family Hx - Social History Hx Alcohol Use: No Hx Substance Use: No - Immunization History Hx Tetanus Toxoid Vaccination: No Hx Influenza Vaccination: No Hx Pneumococcal Vaccination: No Review Of Systems Constitutional: Negative for: Fever, Chills Cardiovascular: Positive for: Other (chest pressure). Negative for: Palpitations Respiratory: Positive for: Shortness of Breath. Negative for: Cough Gastrointestinal: Negative for: Nausea, Vomiting, Abdominal Pain, Diarrhea Physical Exam - Physical Exam Appears: Non-toxic, No Acute Distress, Other ( female) Skin: Warm, Dry, No Rash Head: Atraumatic, Normacephalic, No Tenderness Eye(s): bilateral: Normal Inspection, PERRL, EOMI Oral Mucosa: Moist Neck: Supple Chest: Symmetrical, No Deformity, No Tenderness Cardiovascular: Rhythm Regular, Other (Loud P2) Respiratory: No Rales, No Rhonchi, No Wheezing, Other (clear to auscultation bilaterally) Gastrointestinal/Abdominal: Soft, No Tenderness, No Distention, No Guarding, No Rebound Extremity: Normal ROM, No Tenderness Neurological/Psych: Oriented x3 ED Course And Treatment - Laboratory Results Result Diagrams: 01/27/17 14:20 Lab Interpretation: Abnormal (c/w ESRD on HD) ECG: Interpreted By Me ECG Rhythm: Sinus Rhythm ECG Interpretation: Normal Rate From EC (without peaked T^) Pulse Ox Interpretation: Normal - Radiology CXR: Interpreted by Me CXR Interpretation: Yes: No Acute Disease Progress Note: EKG, CXR, labs, and blood work were ordered. Patient was given cloNIDine. Reevaluation Time: 16:02 Reassessment Condition: Improved - Physician Consult Information Outcome Of Conversation: d/w Dr. Birch- Nephrology-will order HD. d/w Dr. Connelly- Hospitalist- ok to admit Medical Decision Making Medical Decision Making: Right radial artery stick was performed. ESRD visiting from , unable to set up regular outpatient HD, now presents again 6 days after prior visit for stat HD labs c/w same. no ekg changes so hyperkalemia NOT treated as pt pending HD in next few hours. Disposition Doctor Will See Patient In The: Hospital Counseled Patient/Family Regarding: Studies Performed, Diagnosis - Disposition Disposition: HOSPITALIZED Disposition Time: 16:05 Condition: GOOD - Clinical Impression Clinical Impression: End stage renal failure on dialysis - Scribe Statement The provider has reviewed the documentation as recorded by the Scribe Hodan Pemberton All medical record entries made by the Scribe were at my direction and personally dictated by me. I have reviewed the chart and agree that the record accurately reflects my personal performance of the history, physical exam, medical decision making, and the department course for this patient. I have also personally directed, reviewed, and agree with the discharge instructions and disposition.
--- NOTE | 2017-01-27 13:51 | RAD ---
Chest x-ray single frontal view History: Shortness of breath. Comparison: 01/20/2017 Findings: Mild venous congestion. Tortuous ectatic aorta. Heart size within normal limits. Degenerative changes in the spine. A few radiopaque densities project over the left rina thorax, possibly external. Impression: Mild venous congestion.
[2017-01-27 14:59] LABS: TROPONIN I 0.024 ng/mL (0.00-0.120)
[2017-01-27 15:01] LABS: ALB/GLOB RATIO 0.9 (1.0-2.1); BILIRUBIN,TOTAL 0.7 mg/dL (0.2-1.3); CALCIUM 8.4 mg/dl (8.6-10.4); TOTAL PROTEIN 7.7 g/dL (6.3-8.3)
[2017-01-27 15:41] LABS: POTASSIUM 6.3 mmol/L (3.6-5.2)
--- NOTE | 2017-01-27 16:21 | CP.PCM.HP ---
<Drew Bernard - Last Filed: 01/27/17 17:06> History of Present Illness - History of Present Illness History of Present Illness: PGY-1 H&P for Dr. Connelly This is a 51 year old female with PMHx autosomal dominant polycystic kidney disease and end stage renal disease who presents to the ED requesting dialysis. Patient is regularly scheduled for dialysis , , [place] in [place]. Patient states that her last session was Friday of last week, meaning that the patient has missed two sessions of hemodialysis. 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 Patient is complaining of chest pressure that is worsened with laying flat as well as shortness of breath. Both have started today, prompting her to seek medical treatment. Patient also complaining of vague sugar-like taste in her mouth that has been on-going for 2 weeks. Patient cannot recall any provoking factors or associated symptoms. PMHx: PCKD, ESRD SurgHx: fibroma in 2001, appendectomy, hysterectomy FamHx: Mother- ESRD/dialysis, renal cysts, DM, HTN; Aunt/Uncle- " from renal problems" SocHx: denies tobacco, alcohol, and drug use Allergies: aspirin (anaphylactic) Medications: Norvasc and Enalapril Present on Admission - Present on Admission Any Indicators Present on Admission: No Review of Systems - Constitutional Constitutional: absent: Chills, Fever - EENT Eyes: absent: Change in Vision Nose/Mouth/Throat: Other (sugar-like taste in mouth) - Cardiovascular Cardiovascular: Other (chest pressure) - Respiratory Respiratory: absent: Dyspnea - Gastrointestinal Gastrointestinal: absent: Abdominal Pain, Constipation, Diarrhea, Nausea, Vomiting - Genitourinary Genitourinary: absent: Dysuria - Musculoskeletal Musculoskeletal: absent: Back Pain - Integumentary Integumentary: absent: Rash - Neurological Neurological: absent: Weakness - Psychiatric Psychiatric: absent: Abnormal Sleep Pattern - Endocrine Endocrine: absent: Fatigue Past Patient History - Infectious Disease Hx of Infectious Diseases: None - Past Medical History & Family History Past Medical History?: Yes - Past Social History Smoking Status: Never Smoked - CARDIAC Hx Hypertension: Yes - PULMONARY Hx Respiratory Disorders: Yes Other/Comment: 01/05/17 SOB. - NEUROLOGICAL Hx Neurological Disorder: No - HEENT Hx HEENT Problems: No - RENAL Hx Chronic Kidney Disease: Yes - ENDOCRINE/METABOLIC Hx Endocrine Disorders: No - HEMATOLOGICAL/ONCOLOGICAL Hx Blood Disorders: No - INTEGUMENTARY Hx Dermatological Problems: No - MUSCULOSKELETAL/RHEUMATOLOGICAL Hx Arthritis: Yes (Both Knees) - GASTROINTESTINAL Hx Gastrointestinal Disorders: No - GENITOURINARY/GYNECOLOGICAL Hx Genitourinary Disorders: No Other/Comment: ESRD - PSYCHIATRIC Hx Substance Use: No - SURGICAL HISTORY Hx Appendectomy: Yes - ANESTHESIA Hx Anesthesia: Yes Hx Anesthesia Reactions: No Hx Malignant Hyperthermia: No Meds Home Medications: Home Medication List Medication Instructions Recorded Confirmed Type Calcium Acetate [Phoslo] 667 mg PO TID #90 tab 01/28/17 Rx Allergies/Adverse Reactions: Allergies Allergy/AdvReac Type Severity Reaction Status Date / Time aspirin Allergy ANAPHYLAXIS Verified 01/27/17 11:32 Physical Exam - Constitutional Appears: No Acute Distress - Head Exam Head Exam: ATRAUMATIC, NORMOCEPHALIC - Eye Exam Eye Exam: EOMI, PERRL - ENT Exam ENT Exam: Mucous Membranes Moist - Respiratory Exam Respiratory Exam: Clear to Auscultation Bilateral. absent: Rales, Rhonchi, Wheezes - Cardiovascular Exam Cardiovascular Exam: REGULAR RHYTHM, +S1, +S2 - GI/Abdominal Exam GI & Abdominal Exam: Normal Bowel Sounds, Soft. absent: Tenderness - Extremities Exam Extremities exam: Positive for: pedal pulses present. Negative for: pedal edema , tenderness - Neurological Exam Neurological exam: Alert, CN II-XII Intact, Oriented x3 - Psychiatric Exam Psychiatric exam: Normal Affect, Normal Mood - Skin Skin Exam: Dry, Intact, Normal Color, Warm Results - Vital Signs Recent Vital Signs: Last Vital Signs Temp 97.7 F 01/27/17 15:35 Pulse 70 01/27/17 15:35 Resp 18 01/27/17 15:35 BP 165/97 H 01/27/17 15:35 Pulse Ox 99 01/27/17 15:35 - Labs Result Diagrams: 01/27/17 16:20 01/27/17 14:20 Labs: Laboratory Results - last 24 hr 01/27/17 01/27/17 01/27/17 12:49 12:49 14:20 Sodium 134 Potassium 6.3 H* D Chloride 99 Carbon Dioxide 23 Anion Gap 18 BUN 77 H Creatinine 17.3 H* D Est GFR ( Amer) 3 Est GFR (Non-Af Amer) 2 POC Glucose (mg/dL) 90 90 Random Glucose 80 Calcium 8.4 L Total Bilirubin 0.7 AST 18 ALT 31 Alkaline Phosphatase 363 H Troponin I 0.0240 NT-Pro-B Natriuret Pep 3200 H Total Protein 7.7 Albumin 3.8 Globulin 4.0 H Albumin/Globulin Ratio 0.9 L Assessment & Plan - Assessment and Plan (Free Text) Plan: ESRD Admitted under observation for emergent dialysis Dr. Birch nephrology consult, help appreciated Normally has T, Th, S schedule Last dialysis [place] of last week CXR showed mild venous congestion EKG NSR at rate in the 80s, no ST changes Prophylactic Measure Pepcid 20 mg PO BID SCDs Renal dialysis diet Restarted home [place] [facility] DW Dr. Maricel Bernard PGY-1 <Faiza Connelly - Last Filed: 01/29/17 16:02> Results - Vital Signs Recent Vital Signs: Last Vital Signs Temp 97.6 F 01/28/17 17:41 Pulse 108 H 01/28/17 17:41 Resp 18 01/28/17 17:41 BP 133/93 H 01/28/17 17:41 Pulse Ox 99 01/28/17 18:16 - Labs Result Diagrams: 01/28/17 07:49 01/28/17 07:49 Labs: Laboratory Results - last 24 hr 01/28/17 07:49 PTH w/Ion &Tot Calcium 1485 H Attending/Attestation - Attestation I have personally seen and examined this patient.: Yes I have fully participated in the care of the patient.: Yes I have reviewed all pertinent clinical information: Yes Notes (Text): Patient missed dialysis.complaining of chest pressure and SOB 1.Fluid overload secondary to missed dialysis 2.ESRD on HD Discussed with the resident I agree with the assessment and the plan of the resident
[2017-01-27 16:25] LABS: BASO # 0.1 K/uL (0.0-0.2); EOS # 0.3 K/uL (0.0-0.7); EOS % 3.4 % (0.0-4.0); HEMATOCRIT 42.6 % (34.0-47.0); LYMPH # 1.9 K/uL (1.0-4.3); LYMPH % 21.5 % (20.0-40.0); MEAN CELL VOLUME 88.4 fL (81.0-99.0); MEAN CORPUSCULAR HEMOGLOBIN 28.2 pg (27.0-31.0); MEAN CORPUSCULAR HGB CONC 31.9 g/dL (33.0-37.0); MEAN PLATELET VOLUME 9.6 fL (7.2-11.7); MONO # 0.6 K/uL (0.0-0.8); MONO % 6.6 % (0.0-10.0); RED CELL DISTRIBUTION WIDTH 13.5 % (11.5-14.5); WHITE BLOOD COUNT 8.9 K/uL (4.8-10.8)
--- NOTE | 2017-01-27 19:25 | CP.PCM.CON ---
History of Present Illness - History of Present Illness History of Present Illness: 51 yo F w/ pmh of htn, polycystic kidney disease (ADPKD) and ESRD on HD, presented to ED today with shortness of breath after not having HD since past 6 days; patient admitted with hyperkalemia; nephrology being consulted for ESRD care; Patient is visiting from [place] where she receives HD three times weekly via L [facility]; has been admitted multiple times since being in the , mainly for needing urgent HD; Patient reports shortness of breath and cough lately; makes urine sporadically but none today; denies chest pain or palpitations; Patient reports occasional UTI episodes and gross hematuria; denies any fevers/ chills lately; Review of Systems - Constitutional Constitutional: absent: Anorexia, Chills, Fever Additional comments: intermittent mild headache - EENT Eyes: Blurred Vision, Change in Vision Nose/Mouth/Throat: Sore Throat - Cardiovascular Cardiovascular: Leg Edema. absent: Chest Pain, Palpitations - Respiratory Respiratory: Cough, Dyspnea - Gastrointestinal Gastrointestinal: absent: Diarrhea, Nausea, Vomiting - Genitourinary Genitourinary: As Per HPI - Psychiatric Psychiatric: absent: Change in Appetite Past Patient History - Infectious Disease Hx of Infectious Diseases: None - Past Medical History & Family History Past Medical History?: Yes - Past Social History Smoking Status: Never Smoked - CARDIAC Hx Hypertension: Yes - PULMONARY Hx Respiratory Disorders: Yes Other/Comment: 01/05/17 SOB. - NEUROLOGICAL Hx Neurological Disorder: No - HEENT Hx HEENT Problems: No - RENAL Hx Chronic Kidney Disease: Yes - ENDOCRINE/METABOLIC Hx Endocrine Disorders: No - HEMATOLOGICAL/ONCOLOGICAL Hx Blood Disorders: No - INTEGUMENTARY Hx Dermatological Problems: No - MUSCULOSKELETAL/RHEUMATOLOGICAL Hx Arthritis: Yes (Both Knees) - GASTROINTESTINAL Hx Gastrointestinal Disorders: No - GENITOURINARY/GYNECOLOGICAL Hx Genitourinary Disorders: No Other/Comment: ESRD - PSYCHIATRIC Hx Substance Use: No - SURGICAL HISTORY Hx Appendectomy: Yes - ANESTHESIA Hx Anesthesia: Yes Hx Anesthesia Reactions: No Hx Malignant Hyperthermia: No Meds Allergies/Adverse Reactions: Allergies Allergy/AdvReac Type Severity Reaction Status Date / Time aspirin Allergy ANAPHYLAXIS Verified 01/27/17 11:32 - Medications Medications: Current Medications Amlodipine Besylate (Norvasc) 5 mg PO DAILY [facility] Famotidine (Pepcid) 20 mg PO BID [facility] Physical Exam - Constitutional Appears: Non-toxic, No Acute Distress - Eye Exam Eye Exam: Normal appearance. absent: Scleral icterus - ENT Exam ENT Exam: Mucous Membranes Moist - Neck Exam Additional comments: submental neck enlargement; - Respiratory Exam Respiratory Exam: Clear to Auscultation Bilateral. absent: Rales, Rhonchi, Wheezes, Respiratory Distress - Cardiovascular Exam Cardiovascular Exam: RRR, +S1, +S2 - GI/Abdominal Exam GI & Abdominal Exam: Soft. absent: Distended - Extremities Exam Additional comments: mild lower leg edema; - Neurological Exam Neurological exam: Alert, Oriented x3 - Psychiatric Exam Psychiatric exam: Normal Affect, Normal Mood - Skin Skin Exam: Normal Color, Warm Results - Vital Signs Recent Vital Signs: Last Vital Signs Temp 97.8 F 01/27/17 17:35 Pulse 71 01/27/17 19:07 Resp 20 01/27/17 19:07 BP 169/103 H 01/27/17 19:07 Pulse Ox 99 01/27/17 17:35 - Labs Result Diagrams: 01/28/17 07:49 01/28/17 07:49 Labs: Laboratory Results - last 24 hr 01/27/17 01/27/17 01/27/17 12:49 12:49 14:20 WBC RBC Hgb Hct MCV MCH MCHC RDW Plt Count MPV Neut % (Auto) Lymph % (Auto) Pershing % (Auto) Eos % (Auto) Baso % (Auto) Neut # Lymph # Pershing # Eos # Baso # Sodium 134 Potassium 6.3 H* D Chloride 99 Carbon Dioxide 23 Anion Gap 18 BUN 77 H Creatinine 17.3 H* D Est GFR ( Amer) 3 Est GFR (Non-Af Amer) 2 POC Glucose (mg/dL) 90 90 Random Glucose 80 Calcium 8.4 L Total Bilirubin 0.7 AST 18 ALT 31 Alkaline Phosphatase 363 H Troponin I 0.0240 NT-Pro-B Natriuret Pep 3200 H Total Protein 7.7 Albumin 3.8 Globulin 4.0 H Albumin/Globulin Ratio 0.9 L 01/27/17 16:20 WBC 8.9 RBC 4.82 Hgb 13.6 Hct 42.6 MCV 88.4 MCH 28.2 MCHC 31.9 L RDW 13.5 Plt Count 230 MPV 9.6 Neut % (Auto) 67.5 Lymph % (Auto) 21.5 Pershing % (Auto) 6.6 Eos % (Auto) 3.4 Baso % (Auto) 1.0 Neut # 6.0 Lymph # 1.9 Pershing # 0.6 Eos # 0.3 Baso # 0.1 Sodium Potassium Chloride Carbon Dioxide Anion Gap BUN Creatinine Est GFR ( Amer) Est GFR (Non-Af Amer) POC Glucose (mg/dL) Random Glucose Calcium Total Bilirubin AST ALT Alkaline Phosphatase Troponin I NT-Pro-B Natriuret Pep Total Protein Albumin Globulin Albumin/Globulin Ratio - Imaging and Cardiology Chest x-ray Status: Image reviewed by me Additional comment: mild pulm venous congestion; Assessment & Plan (1) End stage renal failure on dialysis Assessment and Plan: Presenting with hyperkalemia and acute decompensated CHF secondary to volume overload from ESRD; being dialyzed today urgently with goal UF of 2.5L over 3 hr period; planning to dialyze again tomorrow before d/c; Status: Acute (2) ADPKD (autosomal dominant polycystic kidney) Assessment and Plan: Reports intermittent headache and history of mother with intracranial hemorrhage ; should get CTA to screen for cerbral aneurysm; Status: Acute (3) HTN (hypertension) Assessment and Plan: BP elevated; only on norvasc 5; will benefit from UF on HD; would hold off on enalapril (home med in [place]) in setting of hyperkalemia and irregular HD; Status: Acute (4) Hyperkalemia Assessment and Plan: In the setting of missed HD and likely minimal residual renal function; dialyzing today and tomorrow; will recommend to be on kayexalate on non-HD days until regular HD schedule can be re-established; Status: Acute (5) Chronic kidney disease-mineral and bone disorder Assessment and Plan: PTH markedly elevated last month, will recheck level and start calcitriol 0.25 mcg qMWF; will repeat phos level; Status: Chronic (6) CHF (congestive heart failure) Assessment and Plan: Acute decompensated diastolic CHF; HD as above; Status: Acute
[2017-01-28 08:05] LABS: BASO # 0.1 K/uL (0.0-0.2); BASO % 0.6 % (0.0-2.0); EOS # 0.4 K/uL (0.0-0.7); EOS % 4.2 % (0.0-4.0); HEMATOCRIT 35.9 % (34.0-47.0); LYMPH # 1.5 K/uL (1.0-4.3); LYMPH % 16.7 % (20.0-40.0); MEAN CELL VOLUME 88.7 fL (81.0-99.0); MEAN CORPUSCULAR HEMOGLOBIN 29.2 pg (27.0-31.0); MEAN CORPUSCULAR HGB CONC 32.9 g/dL (33.0-37.0); MEAN PLATELET VOLUME 9.5 fL (7.2-11.7); MONO # 0.8 K/uL (0.0-0.8); MONO % 8.7 % (0.0-10.0); RED CELL DISTRIBUTION WIDTH 13.2 % (11.5-14.5); WHITE BLOOD COUNT 8.9 K/uL (4.8-10.8)
[2017-01-28 08:30] LABS: ALB/GLOB RATIO 1.3 (1.0-2.1); BILIRUBIN,TOTAL 0.7 mg/dL (0.2-1.3); CALCIUM 8.6 mg/dl (8.6-10.4); PHOSPHOROUS 5.9 mg/dL (2.5-4.5); POTASSIUM 5.4 mmol/L (3.6-5.2); TOTAL PROTEIN 6.5 g/dL (6.3-8.3)
--- NOTE | 2017-01-28 08:57 | CP.PCM.PN ---
<TatyNe - Last Filed: 01/28/17 11:00> Subjective - Date & Time of Evaluation Date of Evaluation: 01/28/17 Time of Evaluation: 08:40 - Subjective Subjective: Nephrology progress note for Dr Birch's service. Patient with no acute events overnight. Patient states she slept well, the shortness of breath has improved. Denies nausea, vomiting or diarrhea. Tolerating po. Admits to body aches. No fever or chills. Patient complaining of abdominal pain, no bowel movement for 5 days. Objective - Vital Signs/Intake and Output Vital Signs (last 24 hours): Temp Pulse Resp BP Pulse Ox 98.0 F 78 20 123/77 95 01/28/17 07:04 01/28/17 07:04 01/28/17 07:04 01/28/17 07:04 01/28/17 07:04 - Medications Medications: Current Medications Amlodipine Besylate (Norvasc) 5 mg PO DAILY [facility] Famotidine (Pepcid) 20 mg PO BID [facility] Last Admin: 01/27/17 22:02 Dose: 20 mg Heparin Sodium (Porcine) (Heparin) 5,000 units SC Q12 [facility] - Labs Labs: 01/28/17 07:49 01/28/17 07:49 - Constitutional Appears: No Acute Distress - Head Exam Head Exam: ATRAUMATIC, NORMAL INSPECTION, NORMOCEPHALIC - Eye Exam Eye Exam: Normal appearance, PERRL. absent: Scleral icterus Pupil Exam: NORMAL ACCOMODATION - ENT Exam ENT Exam: Mucous Membranes Moist - Neck Exam Neck Exam: Normal Inspection - Respiratory Exam Respiratory Exam: Clear to Ausculation Bilateral, NORMAL BREATHING PATTERN. absent: Rales, Rhonchi, Wheezes, Respiratory Distress, Stridor - Cardiovascular Exam Cardiovascular Exam: REGULAR RHYTHM, +S1, +S2 - GI/Abdominal Exam GI & Abdominal Exam: Distended, Soft, Normal Bowel Sounds. absent: Firm, Guarding, Rigid, Tenderness - Extremities Exam Extremities Exam: Normal Inspection - Back Exam Back Exam: NORMAL INSPECTION - Neurological Exam Neurological Exam: Alert, Awake, Oriented x3 - Psychiatric Exam Psychiatric exam: Normal Affect, Normal Mood - Skin Skin Exam: Dry, Intact, Warm Assessment and Plan (1) End stage renal failure on dialysis Assessment & Plan: S/p HD yesterday. Patient will get dialyzed today, and possibly discharge. Status: Chronic (2) ADPKD (autosomal dominant polycystic kidney) Status: Acute (3) CHF (congestive heart failure) Status: Acute (4) Hyperkalemia Assessment & Plan: Potassium 5.4, patient will get dialyzed today. Status: Acute (5) HTN (hypertension) Assessment & Plan: Controlled with Norvasc 50mg daily. Status: Acute (6) Persistent headaches Assessment & Plan: R/o aneurysm due to family history of intracranial hemorrhage. Pending CTA Tylenol prn for headache. Status: Acute (7) Constipation by delayed colonic transit Status: Acute (8) Constipation Assessment & Plan: Will give miralax. Patient seen, examined and case discussed with Dr Birch. Status: Acute <Adan Birch - Last Filed: 01/28/17 19:13> Objective - Vital Signs/Intake and Output Vital Signs (last 24 hours): Temp Pulse Resp BP Pulse Ox 97.6 F 108 H 18 133/93 H 99 01/28/17 17:41 01/28/17 17:41 01/28/17 17:41 01/28/17 17:41 01/28/17 18:16 Intake and Output: 01/28/17 01/29/17 18:59 06:59 Intake Total 480 Balance 480 - Medications Medications: Current Medications Amlodipine Besylate (Norvasc) 5 mg PO DAILY [facility] Last Admin: 01/28/17 13:33 Dose: 5 mg Calcium Acetate (Phoslo) 667 mg PO TID [facility] Last Admin: 01/28/17 17:42 Dose: 667 mg Docusate Sodium (Colace) 100 mg PO DAILY [facility] Last Admin: 01/28/17 12:49 Dose: 100 mg Famotidine (Pepcid) 20 mg PO DAILY [facility] Last Admin: 01/28/17 12:49 Dose: Not Given Heparin Sodium (Porcine) (Heparin) 5,000 units SC Q12 [facility] Last Admin: 01/28/17 12:49 Dose: Not Given Polyethylene Glycol (Miralax) 17 gm PO DAILY [facility] Last Admin: 01/28/17 12:49 Dose: 17 gm - Labs Labs: 01/28/17 07:49 01/28/17 07:49 Assessment and Plan (1) End stage renal failure on dialysis Status: Chronic (2) ADPKD (autosomal dominant polycystic kidney) Status: Acute (3) HTN (hypertension) Status: Acute (4) Hyperkalemia Status: Acute (5) Chronic kidney disease-mineral and bone disorder Status: Chronic (6) CHF (congestive heart failure) Status: Acute Attending/Attestation - Attestation I have personally seen and examined this patient.: Yes I have fully participated in the care of the patient.: Yes I have reviewed all pertinent clinical information, including history, physical exam and plan: Yes Notes (Text): Patient seen and examined; I agree with the resident's note as above with the following additions/edits: 51 yo F w/ pmh of htn, ADPKD and ESRD on HD; admitted with hyperkalemia and acute decompensated diastolic CHF in the setting of missed HD; Patient s/p urgent HD last night; K still mildly elevated; dialyzing again today for clearance and volume removal; Hypertensive ESRD; BP better controlled with UF; continue norvasc 5 mg daily; CKD Mineral Bone Disorder; hyperphosphatemia, started on phoslo 1 tab w/ meals, can use Tums w/ meals as outpatient; ADPKD; with family history of intracranial hemorrhage (in mother, also with ADPKD on dialysis); CTA obtained today to screen for aneurysm showing b/l small carotid artery aneurysms (4x4 mm and 5x3 mm; one on each side); should f/u with neurosurgery as outpatient; Patient is stable for d/c home; should f/u with regularly scheduled HD three times per week. 01/28/17 19:13
[2017-01-28] MEDS ORDERED: Iodixanol 320 MG/ML 100 ML BOTTLE IV ONE (10:42)
[2017-01-28] MEDS ORDERED: POLYETHYLENE GLYCOL 3350 17 GM/Dose PACKET PO SCH (11:00)
--- NOTE | 2017-01-28 13:09 | CT ---
PROCEDURE: CTA HEAD AND NECK WITH CONTRAST HISTORY: screening for cerebral aneurysm in ADPKD patient COMPARISON: None available. TECHNIQUE: Initial noncontrast head CT was performed. Subsequently, CT angiogram of the head and neck were performed after the intravenous administration of 80 mL of Omnipaque 350. Contiguous 1.5mm thick images were obtained in the axial plane of the neck. 2-D coronal and sagittal MPR images were obtained. Imaging postprocessing was performed with 3-D images also obtained. A delayed contrast head CT was also obtained. This CT exam was performed using one or more of the following dose reduction techniques: Automated exposure control, adjustment of the mA and/or kV according to patient size, and/or use of iterative reconstruction technique. Contrast dose: 100 mL Visipaque 320 Radiation dose: Total exam DLP = 516.43 mGy-cm. FINDINGS: Please note this examination is of suboptimal diagnostic quality due to missed bolus. HEAD: Right: The intracranial internal carotid artery, and anterior and middle cerebral arteries are widely patent. The right A1 segment is aplastic, an anatomic variant. There are mild atherosclerotic calcifications in the cavernous carotid arteries without significant luminal narrowing. There is a 5 x 3 mm saccular aneurysm in the right supraclinoid carotid artery projecting medially (series 2, image 191. There is a 4 x 4 mm saccular aneurysm in the left supraclinoid carotid artery projecting medially (series 2, image 191). Left: The intracranial internal carotid artery, and anterior and middle cerebral arteries are widely patent. There are mild atherosclerotic calcifications in the cavernous carotid arteries without significant luminal narrowing. Posterior circulation: The visualized intracranial vertebral arteries, basilar artery and posterior cerebral arteries are widely patent. Ther is no endoluminal filling defect to suggest thrombus. NECK: There is a three vessel aortic arch. There is no stenosis at the origins of the great vessels at the level of the aortic arch. There are mild atherosclerotic calcifications in the carotid bulbs without luminal narrowing. Right Carotid: On the right, the common carotid, internal carotid and external carotid arteries are widely patent. There is no hemodynamically significant stenosis in the internal carotid arteries. Left Carotid: On the left, the common carotid, internal carotid and external carotid arteries are widely patent.There is no hemodynamically significant stenosis in the internal carotid arteries. The vertebral arteries are widely patent. The vertebral arteries are codominant. The visualized soft tissues of the neck are normal. The visualized brain and cervical spine are within normal limits. The thyroid gland is enlarged and lobular with low-attenuation nodules in the right thyroid lobe. There are also nodules inferior to both poles of the thyroid gland. The lung apices are clear. There are prominent supraclavicular lymph nodes on the right. IMPRESSION: 1. Suboptimal diagnostic quality of CTA due to missed bolus. 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 MRA of the head without intravenous contrast is recommended for definitive evaluation. 2. Aplastic right A1 segment, an anatomic variant. 3. No evidence of hemodynamically significant stenosis in the internal carotid arteries. 4. Enlarged multinodular thyroid gland. If not already performed a dedicated thyroid ultrasound is recommended for further evaluation.
--- NOTE | 2017-01-28 14:07 | CP.PCM.PN ---
Subjective - Date & Time of Evaluation Date of Evaluation: 01/28/17 Time of Evaluation: 07:30 - Subjective Subjective: PGY1 Progress Note for Dr. Connelly Patient seen and examined at bedside this morning. Patient stated that she was feeling well other than a mild headache. She stated she slept well throughout the night and was feeling much better since having dialysis yesterday. Patient is scheduled for a CTA of the head later today to r/o aneurysm due to family history of intracranial hemorrhage. Resident Sylvain was called for patient after CTA with complain of worsening headache as well as nausea and vomiting. Patient was given Tylenol and zofran initially but with minimal improvement. Symptoms continued so the patient was given a one time dose of Reglan. Symptoms improved. Objective - Vital Signs/Intake and Output Vital Signs (last 24 hours): Temp Pulse Resp BP Pulse Ox 98.0 F 78 20 123/77 95 01/28/17 07:04 01/28/17 07:04 01/28/17 07:04 01/28/17 07:04 01/28/17 07:04 - Medications Medications: Current Medications Amlodipine Besylate (Norvasc) 5 mg PO DAILY [facility] Last Admin: 01/28/17 13:33 Dose: 5 mg Docusate Sodium (Colace) 100 mg PO DAILY [facility] Last Admin: 01/28/17 12:49 Dose: 100 mg Famotidine (Pepcid) 20 mg PO DAILY [facility] Last Admin: 01/28/17 12:49 Dose: Not Given Heparin Sodium (Porcine) (Heparin) 5,000 units SC Q12 [facility] Last Admin: 01/28/17 12:49 Dose: Not Given Polyethylene Glycol (Miralax) 17 gm PO DAILY [facility] Last Admin: 01/28/17 12:49 Dose: 17 gm - Labs Labs: 01/28/17 07:49 01/28/17 07:49 - Constitutional Appears: Non-toxic, No Acute Distress - Head Exam Head Exam: ATRAUMATIC, NORMOCEPHALIC - Eye Exam Eye Exam: EOMI, Normal appearance, PERRL Pupil Exam: NORMAL ACCOMODATION - ENT Exam ENT Exam: Mucous Membranes Moist - Respiratory Exam Respiratory Exam: NORMAL BREATHING PATTERN. absent: Accessory Muscle Use, Respiratory Distress - Cardiovascular Exam Cardiovascular Exam: REGULAR RHYTHM - GI/Abdominal Exam GI & Abdominal Exam: Soft. absent: Distended, Firm, Guarding, Rigid, Tenderness - Extremities Exam Extremities Exam: absent: Calf Tenderness, Pedal Edema - Neurological Exam Neurological Exam: Alert, Awake, Oriented x3 - Psychiatric Exam Psychiatric exam: Normal Affect, Normal Mood - Skin Skin Exam: Dry, Warm Assessment and Plan - Assessment and Plan (Free Text) Plan: ESRD Admitted under observation for emergent dialysis Dr. Birch nephrology consult, help appreciated HD schedule , , Missed dialysis on and Friday last week - got one dialysis treatment yesterday CXR showed mild venous congestion EKG NSR at rate in the 80s, no ST changes Creatinine on admission 17.3; today 10.6 Patient will have another session of dialysis today Prophylactic Measure Pepcid 20 mg PO BID [facility] Renal dialysis diet Restarted home [place] Patient is traveling from the . She has been admitted her at [facility] previously for missed dialysis treatments while traveling here. She was informed again that her symptoms with continue to return and worsen if she continues to miss dialysis treatments. Patient states she will be traveling back to the in early February. Case discussed with Dr. Maricel Barnard Sylvain PGY1
[2017-01-28] MEDS ORDERED: Influenza Vaccine 60 mcg/0.5 mL SYR (4YR UP) IM ONE (17:17)
--- NOTE | 2017-01-28 17:37 | CP.PCM.DIS ---
<Akil Narayan - Last Filed: 01/28/17 18:29> Provider - Provider Date of Admission: 01/27/17 15:05 Attending physician: Faiza Connelly MD Consults: Nephro - Dr. Reece Neuro Surg - Dr. Leal Time Spent in preparation of Discharge (in minutes): 35 Diagnosis - Discharge Diagnosis (1) Brain aneurysm Status: Acute Hospital Course - Lab Results Lab Results: Most Recent Lab Values WBC 8.9 K/uL (4.8-10.8) 01/28/17 07:49 RBC 4.04 Mil/uL (3.80-5.20) 01/28/17 07:49 Hgb 11.8 g/dL (11.0-16.0) 01/28/17 07:49 Hct 35.9 % (34.0-47.0) 01/28/17 07:49 MCV 88.7 fL (81.0-99.0) 01/28/17 07:49 MCH 29.2 pg (27.0-31.0) 01/28/17 07:49 MCHC 32.9 g/dL (33.0-37.0) L 01/28/17 07:49 RDW 13.2 % (11.5-14.5) 01/28/17 07:49 Plt Count 202 K/uL (130-400) 01/28/17 07:49 MPV 9.5 fL (7.2-11.7) 01/28/17 07:49 Neut % (Auto) 69.8 % (50.0-75.0) 01/28/17 07:49 Lymph % (Auto) 16.7 % (20.0-40.0) L 01/28/17 07:49 Dane % (Auto) 8.7 % (0.0-10.0) 01/28/17 07:49 Eos % (Auto) 4.2 % (0.0-4.0) H 01/28/17 07:49 Baso % (Auto) 0.6 % (0.0-2.0) 01/28/17 07:49 Neut # 6.2 K/uL (1.8-7.0) 01/28/17 07:49 Lymph # 1.5 K/uL (1.0-4.3) 01/28/17 07:49 Dane # 0.8 K/uL (0.0-0.8) 01/28/17 07:49 Eos # 0.4 K/uL (0.0-0.7) 01/28/17 07:49 Baso # 0.1 K/uL (0.0-0.2) 01/28/17 07:49 Sodium 133 mmol/L (132-148) 01/28/17 07:49 Potassium 5.4 mmol/L (3.6-5.2) H 01/28/17 07:49 Chloride 93 mmol/L (98-107) L 01/28/17 07:49 Carbon Dioxide 30 mmol/L (22-30) 01/28/17 07:49 Anion Gap 16 (10-20) 01/28/17 07:49 BUN 43 mg/dL (7-17) H 01/28/17 07:49 Creatinine 10.6 mg/dL (0.7-1.2) H* D 01/28/17 07:49 Est GFR ( Amer) 5 01/28/17 07:49 Est GFR (Non-Af Amer) 4 01/28/17 07:49 POC Glucose (mg/dL) 90 mg/dL (65-110) 01/27/17 12:49 Random Glucose 71 mg/dL (65-105) 01/28/17 07:49 Calcium 8.6 mg/dl (8.6-10.4) 01/28/17 07:49 Phosphorus 5.9 mg/dL (2.5-4.5) H 01/28/17 07:49 Magnesium 2.0 mg/dL (1.6-2.3) 01/28/17 07:49 Total Bilirubin 0.7 mg/dL (0.2-1.3) 01/28/17 07:49 AST 18 U/L (14-36) 01/28/17 07:49 ALT 14 U/L (9-52) 01/28/17 07:49 Alkaline Phosphatase 356 U/L (38-126) H 01/28/17 07:49 Troponin I 0.0240 ng/mL (0.00-0.120) 01/27/17 14:20 NT-Pro-B Natriuret Pep 3200 pg/mL (0-900) H 01/27/17 14:20 Total Protein 6.5 g/dL (6.3-8.3) 01/28/17 07:49 Albumin 3.7 g/dL (3.5-5.0) 01/28/17 07:49 Globulin 2.8 gm/dL (2.2-3.9) 01/28/17 07:49 Albumin/Globulin Ratio 1.3 (1.0-2.1) 01/28/17 07:49 - Hospital Course Hospital Course: As per admission documentation This is a 51 year old female with PMHx autosomal dominant polycystic kidney disease and end stage renal disease who presents to the ED requesting dialysis. Patient is regularly scheduled for dialysis , in the [facility] [place]. Patient states that her last session was Friday of last week, meaning that the patient has missed two sessions of hemodialysis. Patient is unable to follow up with a media services coordinator since she is visiting this country and expects to return in February. Patient is complaining of chest pressure that is worsened with laying flat as well as shortness of breath. Both have started today, prompting her to seek medical treatment. Patient also complaining of vague sugar-like taste in her mouth that has been on-going for 2 weeks. Patient cannot recall any provoking factors or associated symptoms. Hospital course. Patient was admitted to the hospital for electrolyte imbalances. Patient missed 2 consecutive dialysis treatments. Patient was admitted and started on dialysis. Patient received 2 dialysis treatments. Head and Neck CTA - 1. Suboptimal diagnostic quality of CTA due to missed bolus. 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 MRA of the head without intravenous contrast is recommended for definitive evaluation. 2. Aplastic right A1 segment, an anatomic variant. 3. No evidence of hemodynamically significant stenosis in the internal carotid arteries. 4. Enlarged multinodular thyroid gland. If not already performed a dedicated thyroid ultrasound is recommended for further evaluation. ESRD Admitted under observation for emergent dialysis Dr. Birch nephrology consult, help appreciated HD schedule , , Missed dialysis on and Friday last week - got one dialysis treatment yesterday CXR showed mild venous congestion EKG NSR at rate in the 80s, no ST changes Creatinine on admission 17.3; today 10.6 Patient will have another session of dialysis today Prophylactic Measure Pepcid 20 mg PO BID SCDs Renal dialysis diet [facility] Patient is traveling from the . She has been admitted her at [facility] previously for missed dialysis treatments while traveling here. She was informed again that her symptoms with continue to return and worsen if she continues to miss dialysis treatments. Patient states she will be traveling back to the in early February. Case discussed with Dr. Maricel Barnard Sylvain PGY1 Discharge Instructions Patient is to be discharged home per Dr. Connelly. Patient is to be given a copy of her Head CTA report to be given to her primary care physician back home. She is to follow up with neurosurgery and the medical clinic at [facility] in [place], [place] for further treatment while here in the [place] on vacation. Patient is to call and set up an appointment. If patient has any new or worsening symptoms, please return to the hospital. [address] [address] Prescriptions given: Phoslo 667mg PO TID If patient can not afford the medications, she was instructed to take TUMS daily. Discharge Exam - Head Exam Head Exam: ATRAUMATIC, NORMOCEPHALIC - Eye Exam Eye Exam: EOMI, Normal appearance, PERRL - ENT Exam ENT Exam: Mucous Membranes Moist - Respiratory Exam Respiratory Exam: Clear to PA & Lateral, NORMAL BREATHING PATTERN, UNREMARKABLE. absent: Accessory Muscle Use, Rhonchi, Respiratory Distress - Cardiovascular Exam Cardiovascular Exam: REGULAR RHYTHM, +S1 - GI/Abdominal Exam GI & Abdominal Exam: Soft. absent: Distended, Firm, Guarding, Rigid, Tenderness - Extremities Exam Extremities exam: normal inspection, pedal pulses present - Neurological Exam Neurological exam: Alert, CN II-XII Intact, Oriented x3 - Psychiatric Exam Psychiatric exam: Normal Affect, Normal Mood - Skin Skin Exam: Dry, Normal Color, Warm Discharge Plan - Discharge Medications Prescriptions: Calcium Acetate [Phoslo] 667 mg PO TID #90 tab - Follow Up Plan Condition: GOOD Disposition: HOME/ ROUTINE Instructions: Constipation (DC), Constipation (GEN), Renal Failure Diet (DC), Dialysis Diet (DC), End Stage Kidney Disease (DC) Additional Instructions: Patient is to be discharged home per Dr. Connelly. Patient is to be given a copy of her Head CTA report to be given to her primary care physician back home. She is to follow up with neurosurgery and the medical clinic at [facility] in [place], [place] for further treatment while [place] the [place]. Patient is to call and set up an appointment. If patient has any new or worsening symptoms, please return to the hospital. [address] [id number] Prescriptions given: Phoslo 667mg PO TID If patient can not afford the medications, she was instructed to take TUMS daily. <Faiza Connelly - Last Filed: 01/29/17 16:03> Provider - Provider Date of Admission: 01/27/17 15:05 Attending physician: Faiza Connelly MD Hospital Course - Lab Results Lab Results: Most Recent Lab Values WBC 8.9 K/uL (4.8-10.8) 01/28/17 07:49 RBC 4.04 Mil/uL (3.80-5.20) 01/28/17 07:49 Hgb 11.8 g/dL (11.0-16.0) 01/28/17 07:49 Hct 35.9 % (34.0-47.0) 01/28/17 07:49 MCV 88.7 fL (81.0-99.0) 01/28/17 07:49 MCH 29.2 pg (27.0-31.0) 01/28/17 07:49 MCHC 32.9 g/dL (33.0-37.0) L 01/28/17 07:49 RDW 13.2 % (11.5-14.5) 01/28/17 07:49 Plt Count 202 K/uL (130-400) 01/28/17 07:49 MPV 9.5 fL (7.2-11.7) 01/28/17 07:49 Neut % (Auto) 69.8 % (50.0-75.0) 01/28/17 07:49 Lymph % (Auto) 16.7 % (20.0-40.0) L 01/28/17 07:49 Dane % (Auto) 8.7 % (0.0-10.0) 01/28/17 07:49 Eos % (Auto) 4.2 % (0.0-4.0) H 01/28/17 07:49 Baso % (Auto) 0.6 % (0.0-2.0) 01/28/17 07:49 Neut # 6.2 K/uL (1.8-7.0) 01/28/17 07:49 Lymph # 1.5 K/uL (1.0-4.3) 01/28/17 07:49 Dane # 0.8 K/uL (0.0-0.8) 01/28/17 07:49 Eos # 0.4 K/uL (0.0-0.7) 01/28/17 07:49 Baso # 0.1 K/uL (0.0-0.2) 01/28/17 07:49 Sodium 133 mmol/L (132-148) 01/28/17 07:49 Potassium 5.4 mmol/L (3.6-5.2) H 01/28/17 07:49 Chloride 93 mmol/L (98-107) L 01/28/17 07:49 Carbon Dioxide 30 mmol/L (22-30) 01/28/17 07:49 Anion Gap 16 (10-20) 01/28/17 07:49 BUN 43 mg/dL (7-17) H 01/28/17 07:49 Creatinine 10.6 mg/dL (0.7-1.2) H* D 01/28/17 07:49 Est GFR ( Amer) 5 01/28/17 07:49 Est GFR (Non-Af Amer) 4 01/28/17 07:49 POC Glucose (mg/dL) 90 mg/dL (65-110) 01/27/17 12:49 Random Glucose 71 mg/dL (65-105) 01/28/17 07:49 Calcium 8.6 mg/dl (8.6-10.4) 01/28/17 07:49 Phosphorus 5.9 mg/dL (2.5-4.5) H 01/28/17 07:49 Magnesium 2.0 mg/dL (1.6-2.3) 01/28/17 07:49 Total Bilirubin 0.7 mg/dL (0.2-1.3) 01/28/17 07:49 AST 18 U/L (14-36) 01/28/17 07:49 ALT 14 U/L (9-52) 01/28/17 07:49 Alkaline Phosphatase 356 U/L (38-126) H 01/28/17 07:49 Troponin I 0.0240 ng/mL (0.00-0.120) 01/27/17 14:20 NT-Pro-B Natriuret Pep 3200 pg/mL (0-900) H 01/27/17 14:20 Total Protein 6.5 g/dL (6.3-8.3) 01/28/17 07:49 Albumin 3.7 g/dL (3.5-5.0) 01/28/17 07:49 Globulin 2.8 gm/dL (2.2-3.9) 01/28/17 07:49 Albumin/Globulin Ratio 1.3 (1.0-2.1) 01/28/17 07:49 PTH w/Ion &Tot Calcium 1485 pg/mL (14-64) H 01/28/17 07:49 Attending/Attestation - Attestation I have personally seen and examined this patient.: Yes I have fully participated in the care of the patient.: Yes I have reviewed all pertinent clinical information, including history, physical exam and plan: Yes Notes (Text): Seen and examined Case discussed with the neurosurgeon Dr Leal and media services coordinator Discussed with the resident
[2017-01-28 17:41] VITALS: BP 133/93; PULSE 108; RESP 18; TEMP 97.6; O2SAT 99
--- NOTE | 2017-01-28 18:29 | CARD ---
APPROVED REPORT EKG Measurement Heart [id number] <Conclusion> Normal sinus rhythm Septal infarct, age undetermined Inferior infarct, age undetermined Abnormal ECG
== END 2017-01-28 19:18 | disposition home or self-care (01) ==
LOC: C.ER 11:15 → C.9E 15:05 → INTOOBSV 15:05 → C.9E 16:07 → C.5S 16:38
PROVIDERS: ADMIT Internal Medicine; ATTEND Internal Medicine
DX: I13.2 Hypertensive heart and chronic kidney disease with heart failure and with stage 5 chronic kidney disease, or end stage renal disease (principal); E87.5 Hyperkalemia; N18.6 End stage renal disease; R31.0 Gross hematuria; Z99.2 Dependence on renal dialysis; I50.33 Acute on chronic diastolic (congestive) heart failure
CPT/HCPCS: 36415; 70496; 70498; 71010; 80053; 82948; 83735; 83880; 84100; 84484; 85025; 90674; 93005; 99285; G0008; G0257; G0378; J2405; Q9967

== ENCOUNTER 2017-02-16 18:17 | Inpatient (IN) | payer MEDICAID, OTHER ==
--- NOTE | 2017-02-16 19:19 | C.PDOC ---
History Of Present Illness 51 yr old female with PMHx of ESRD on hemodialysis (), presents to the ER with complaints of chest pain and headache since last night. Patient states she is visiting from [facility] and does not have a PMD. Denies fever, chills, vision changes, SOB, nausea, vomiting, weakness or numbness. Time Seen by Provider: 02/16/17 19:19 Chief Complaint (Nursing): Chest Pain History Per: Patient History/Exam Limitations: no limitations Onset/Duration Of Symptoms: Days (1) Current Symptoms Are (Timing): Still Present Pain Scale Rating Of: 4 Quality: Dull, Aching Associated Symptoms: Dyspnea Modifying Factors: None Exacerbating Factors: Exertion Alleviating Factors: None Recent travel outside of the [place]: Not to an Endemic Area Additional History Per: Patient Past Medical History Reviewed: Historical Data, Nursing Documentation, Vital Signs Vital Signs: Last Vital Signs Temp 98 F 02/16/17 18:36 Pulse 75 02/16/17 20:11 Resp 14 02/16/17 20:11 BP 171/102 H 02/16/17 20:11 Pulse Ox 100 02/16/17 20:40 - Medical History PMH: Arthritis (Both Knees), HTN, End Stage Renal Disease (), Chronic Kidney Disease Surgical History: Appendectomy - [facility] Procedures (01/20/17) DILATION OF LEFT CEPHALIC VEIN, PERCUTANEOUS APPROACH (11/22/15) PERFORMANCE OF URINARY FILTRATION, MULTIPLE (11/22/15) Family History: States: No Known Family Hx - Social History Hx Alcohol Use: No Hx Substance Use: No - Immunization History Hx Tetanus Toxoid Vaccination: No Hx Influenza Vaccination: No Hx Pneumococcal Vaccination: No Review Of Systems Except As Marked, All Systems Reviewed And Found Negative. Constitutional: Negative for: Fever, Chills Eyes: Negative for: Vision Change ENT: Negative for: Throat Pain Cardiovascular: Positive for: Chest Pain Respiratory: Positive for: Shortness of Breath, SOB with Excertion Gastrointestinal: Negative for: Nausea, Vomiting Genitourinary: Negative for: Vaginal Bleeding Musculoskeletal: Negative for: Back Pain Skin: Negative for: Rash Neurological: Positive for: Headache. Negative for: Weakness, Numbness Psych: Negative for: Anxiety Physical Exam - Physical Exam Appears: Non-toxic, No Acute Distress Skin: Warm, Dry, No Rash Head: Atraumatic, Normacephalic Eye(s): bilateral: Normal Inspection, PERRL, EOMI Oral Mucosa: Moist Throat: No Erythema, No Exudate, No Drooling Neck: Trachea Midline, Supple Chest: Symmetrical Cardiovascular: Rhythm Regular, No Murmur Respiratory: Rhonchi (scattered), No Wheezing Gastrointestinal/Abdominal: Bowel Sounds (good bowel sounds), Soft, No Tenderness, No Guarding, No Rebound Back: No Normal Inspection Extremity: Capillary Refill (<2 secs), No Swelling, Other ((+) Left forearm graph with good bruit and thrill) Extremity: Bilateral: Atraumatic Pulses: Left Dorsalis Pedis: Normal, Right Dorsalis Pedis: Normal Neurological/Psych: Oriented x3, Normal Speech, Normal Motor Gait: Steady ED Course And Treatment - Laboratory Results Result Diagrams: 02/16/17 19:47 02/16/17 19:47 ECG: Interpreted By Me, Viewed By Me ECG Rhythm: Sinus Rhythm (89), Nonspecific Changes Rate From EC (BPM) O2 Sat by Pulse Oximetry: 100 (RA) Pulse Ox Interpretation: Normal - Radiology CXR: Interpreted by Me, Viewed By Me CXR Interpretation: Yes: Other (mild chf). No: Infiltrates, Fracture, Cardiomegaly Progress Note: spoke with dr espitia - aware of all labs and vitals . will dialyse in am Medical Decision Making Medical Decision Making: PLAN: * CXR * EKG * Troponin * CBC * CMP * BNP Disposition Discussed With : Aaron Sung Comment: accepted the pt on his service and took over the care at 8:39 PM Doctor Will See Patient In The: Hospital Counseled Patient/Family Regarding: Studies Performed, Diagnosis - Disposition Disposition: HOSPITALIZED Disposition Time: 19:19 Condition: FAIR - POA Present On Arrival: None - Clinical Impression Clinical Impression: Chest pain, Dyspnea, Hyperkalemia, ADPKD (autosomal dominant polycystic kidney) , CHF (congestive heart failure), End stage renal failure on dialysis - Scribe Statement The provider has reviewed the documentation as recorded by the Wallyibashlee Deleon Provider Attestation: All medical record entries made by the Wallyibashlee were at my direction and personally dictated by me. I have reviewed the chart and agree that the record accurately reflects my personal performance of the history, physical exam, medical decision making, and the department course for this patient. I have also personally directed, reviewed, and agree with the discharge instructions and disposition. Decision To Admit - Pt Status Changed To: Hospital Disposition Of: Inpatient - Admit Certification Admit to Inpatient:: After my assessment, the patient will require hospitalization for at least two midnights. This is because of the severity of symptoms shown, intensity of services needed, and/or the medical risk in this patient being treated as an outpatient. - InPatient: Physician Admission Certification: I certify that this patient requires 2 or more midnights of care for the following reason:: After my assessment, the patient will require hospitalization for at least two midnights. This is because of the severity of symptoms shown, intensity of services needed, and/or the medical risk in this patient being treated as an outpatient. - . Bed Request Type: Telemetry Admitting Physician: Aaron Sung Patient Diagnosis: Chest pain, Dyspnea, Hyperkalemia, ADPKD (autosomal dominant polycystic kidney) , CHF (congestive heart failure), End stage renal failure on dialysis
[2017-02-16 19:50] LABS: BASO % 0.3 % (0.0-2.0); EOS # 0.2 K/uL (0.0-0.7); EOS % 1.9 % (0.0-4.0); HEMOGLOBIN 11.3 g/dL (11.0-16.0); LYMPH # 2.1 K/uL (1.0-4.3); LYMPH % 21.7 % (20.0-40.0); MEAN CELL VOLUME 87.2 fL (81.0-99.0); MEAN CORPUSCULAR HEMOGLOBIN 27.7 pg (27.0-31.0); MEAN CORPUSCULAR HGB CONC 31.7 g/dL (33.0-37.0); MEAN PLATELET VOLUME 8.4 fL (7.2-11.7); MONO # 0.7 K/uL (0.0-0.8); NEUT # 6.7 K/uL (1.8-7.0); NEUT % 69.1 % (50.0-75.0); RBC 4.09 Mil/uL (3.80-5.20); RED CELL DISTRIBUTION WIDTH 13.4 % (11.5-14.5); WHITE BLOOD COUNT 9.8 K/uL (4.8-10.8)
[2017-02-16 19:57] LABS: PROTHROMBIN TIME 11.4 SECONDS (9.7-12.2)
[2017-02-16 20:07] LABS: ALB/GLOB RATIO 1.2 (1.0-2.1); ALBUMIN 3.9 g/dL (3.5-5.0); CALCIUM 8.7 mg/dl (8.6-10.4)
[2017-02-16 20:16] LABS: TROPONIN I 0.03 ng/mL (0.00-0.120)
--- NOTE | 2017-02-16 23:45 | CP.PCM.HP ---
<Drew Bernard - Last Filed: 02/17/17 03:53> History of Present Illness - History of Present Illness History of Present Illness: PGY-1 H&P for Dr. Sung CC: chest pain This is a 51 year old female with PMHx autosomal dominant polycystic kidney disease and end stage renal disease who presents to the ED complaining of dull chest pressure. It began last night and has been intermittent. Patient does not recall any exacerbating or relieving factors, but states that she feels worse when she lays flat. Patient states that she is also a little bit short of breath which is usual when she does not receive dialysis. Patient also complaining of associated palpitations intermittently. Patient states that she has not had dialysis since Friday of last week. Patient is visiting from the [facility] [place] where she is regularly scheduled for dialysis , , . Patient is unable to follow up with a employment coach since she is visiting this country and expects to return on February 20. PMHx: PCKD, ESRD PSHx: fibroma in 2001, appendectomy, hysterectomy Allergies: aspirin (anaphylactic) Social: denies tobacco, alcohol, and drug use Family Hx: Mother- ESRD/dialysis, renal cysts, DM, HTN; Aunt/Uncle- " from renal problems" Medications: Norvasc Present on Admission - Present on Admission Any Indicators Present on Admission: No Review of Systems - Constitutional Constitutional: absent: Chills, Fever - EENT Eyes: absent: Change in Vision Ears: absent: Decreased Hearing Nose/Mouth/Throat: absent: Nasal Congestion - Cardiovascular Cardiovascular: Other (chest pressure) - Respiratory Respiratory: Dyspnea. absent: Cough - Gastrointestinal Gastrointestinal: absent: Abdominal Pain, Constipation, Diarrhea, Nausea, Vomiting - Genitourinary Genitourinary: absent: Dysuria - Musculoskeletal Musculoskeletal: absent: Back Pain - Integumentary Integumentary: absent: Rash - Neurological Neurological: Headaches - Psychiatric Psychiatric: absent: Anxiety - Endocrine Endocrine: Palpitations. absent: Fatigue Past Patient History - Infectious Disease Hx of Infectious Diseases: None - Past Medical History & Family History Past Medical History?: Yes - Past Social History Smoking Status: Never Smoked - CARDIAC Hx Hypertension: Yes - PULMONARY Hx Respiratory Disorders: Yes Other/Comment: 01/05/17 SOB. - NEUROLOGICAL Hx Neurological Disorder: No - HEENT Hx HEENT Problems: No - RENAL Hx Chronic Kidney Disease: Yes - ENDOCRINE/METABOLIC Hx Endocrine Disorders: No - HEMATOLOGICAL/ONCOLOGICAL Hx Blood Disorders: No - INTEGUMENTARY Hx Dermatological Problems: No - MUSCULOSKELETAL/RHEUMATOLOGICAL Hx Arthritis: Yes (Both Knees) - GASTROINTESTINAL Hx Gastrointestinal Disorders: No - GENITOURINARY/GYNECOLOGICAL Hx Genitourinary Disorders: No Other/Comment: ESRD - PSYCHIATRIC Hx Substance Use: No - SURGICAL HISTORY Hx Appendectomy: Yes - ANESTHESIA Hx Anesthesia: Yes Hx Anesthesia Reactions: No Hx Malignant Hyperthermia: No Meds Allergies/Adverse Reactions: Allergies Allergy/AdvReac Type Severity Reaction Status Date / Time aspirin Allergy ANAPHYLAXIS Verified 01/27/17 11:32 Physical Exam - Constitutional Appears: No Acute Distress - Head Exam Head Exam: ATRAUMATIC, NORMOCEPHALIC - Eye Exam Eye Exam: EOMI, PERRL - ENT Exam ENT Exam: Mucous Membranes Moist - Respiratory Exam Respiratory Exam: Clear to Auscultation Bilateral, NORMAL BREATHING PATTERN. absent: Rales, Rhonchi, Wheezes - Cardiovascular Exam Cardiovascular Exam: REGULAR RHYTHM, +S1, +S2. absent: Bradycardia, Tachycardia , Systolic Murmur - GI/Abdominal Exam GI & Abdominal Exam: Normal Bowel Sounds, Soft. absent: Distended, Tenderness - Extremities Exam Extremities exam: Positive for: pedal pulses present. Negative for: pedal edema , tenderness - Back Exam Back exam: absent: CVA tenderness (L), CVA tenderness (R) - Neurological Exam Neurological exam: Alert, CN II-XII Intact, Oriented x3 - Psychiatric Exam Psychiatric exam: Normal Affect, Normal Mood - Skin Skin Exam: Dry, Warm Results - Vital Signs Recent Vital Signs: Last Vital Signs Temp 98 F 02/16/17 18:36 Pulse 91 H 02/16/17 21:40 Resp 16 02/16/17 21:40 BP 177/102 H 02/16/17 21:40 Pulse Ox 96 02/16/17 21:40 - Labs Result Diagrams: 02/16/17 19:47 02/16/17 19:47 Labs: Laboratory Results - last 24 hr 02/16/17 02/16/17 02/16/17 19:47 19:47 19:47 WBC 9.8 RBC 4.09 Hgb 11.3 Hct 35.7 MCV 87.2 MCH 27.7 MCHC 31.7 L RDW 13.4 Plt Count 246 MPV 8.4 Neut % (Auto) 69.1 Lymph % (Auto) 21.7 Boyle % (Auto) 7.0 Eos % (Auto) 1.9 Baso % (Auto) 0.3 Neut # 6.7 Lymph # 2.1 Boyle # 0.7 Eos # 0.2 Baso # 0.0 PT 11.4 INR 1.0 APTT 33 Sodium 130 L Potassium 5.6 H Chloride 90 L Carbon Dioxide 26 Anion Gap 20 BUN 72 H Creatinine 15.4 H* D Est GFR ( Amer) 3 Est GFR (Non-Af Amer) 2 Random Glucose 102 Calcium 8.7 Total Bilirubin 0.7 AST 17 ALT 15 Alkaline Phosphatase 344 H Troponin I 0.0300 NT-Pro-B Natriuret Pep 6050 H Total Protein 7.0 Albumin 3.9 Globulin 3.2 Albumin/Globulin Ratio 1.2 Assessment & Plan - Assessment and Plan (Free Text) Plan: ESRD Dr. Birch nephrology consult, help appreciated Normally has , , schedule Last dialysis Friday of last week Dialysis ordered for tomorrow AM Chest Pain EKG and first EDILSON negative f/u EDILSON and EKG x2 Prophylactic Measure Pepcid 20 mg PO daily SCDs Renal dialysis diet Restarted home [facility] Case DW Dr. Ana Lilia Bernard PGY-1 <Aaron Sung - Last Filed: 02/17/17 06:02> Results - Vital Signs Recent Vital Signs: Last Vital Signs Temp 98 F 02/16/17 18:36 Pulse 87 02/17/17 01:45 Resp 14 02/17/17 00:40 BP 167/102 H 02/17/17 01:45 Pulse Ox 98 02/17/17 00:40 - Labs Result Diagrams: 02/17/17 03:18 02/17/17 03:18 Labs: Laboratory Results - last 24 hr 02/16/17 02/16/17 02/16/17 19:47 19:47 19:47 WBC 9.8 RBC 4.09 Hgb 11.3 Hct 35.7 MCV 87.2 MCH 27.7 MCHC 31.7 L RDW 13.4 Plt Count 246 MPV 8.4 Neut % (Auto) 69.1 Lymph % (Auto) 21.7 Boyle % (Auto) 7.0 Eos % (Auto) 1.9 Baso % (Auto) 0.3 Neut # 6.7 Lymph # 2.1 Boyle # 0.7 Eos # 0.2 Baso # 0.0 PT 11.4 INR 1.0 APTT 33 Sodium 130 L Potassium 5.6 H Chloride 90 L Carbon Dioxide 26 Anion Gap 20 BUN 72 H Creatinine 15.4 H* D Est GFR ( Amer) 3 Est GFR (Non-Af Amer) 2 Random Glucose 102 Calcium 8.7 Total Bilirubin 0.7 AST 17 ALT 15 Alkaline Phosphatase 344 H Total Creatine Kinase CK-MB (Mass) Troponin I 0.0300 NT-Pro-B Natriuret Pep 6050 H Total Protein 7.0 Albumin 3.9 Globulin 3.2 Albumin/Globulin Ratio 1.2 TSH 3rd Generation 02/17/17 02/17/17 02/17/17 03:18 03:18 03:18 WBC 9.9 RBC 3.83 Hgb 11.0 Hct 33.2 L MCV 86.8 MCH 28.6 MCHC 33.0 RDW 13.2 Plt Count 230 MPV 8.6 Neut % (Auto) 64.3 Lymph % (Auto) 24.4 Boyle % (Auto) 7.9 Eos % (Auto) 2.9 Baso % (Auto) 0.5 Neut # 6.4 Lymph # 2.4 Boyle # 0.8 Eos # 0.3 Baso # 0.1 PT INR APTT Sodium 132 Potassium 5.5 H Chloride 91 L Carbon Dioxide 24 Anion Gap 23 H BUN 75 H Creatinine Est GFR ( Amer) Est GFR (Non-Af Amer) Random Glucose 93 Calcium 9.0 Total Bilirubin 0.6 AST 14 ALT 19 Alkaline Phosphatase 317 H Total Creatine Kinase 30 CK-MB (Mass) 0.68 Troponin I 0.0250 NT-Pro-B Natriuret Pep Total Protein 6.4 Albumin 3.5 Globulin 2.9 Albumin/Globulin Ratio 1.2 TSH 3rd Generation 5.70 H Assessment & Plan - Date & Time Date: 02/17/17 (I have seen and examined the patient. I agree with the findings and plan of care as documented by Dr. Bernard. Patient with ESRD. [place] from out of [place]. In need of dialysis. Consult to nephro. Also with chest pain. ROMIx3 with EKG. Aspirin and Statin. Monitor for acute changes.) Time: 05:57 Attending/Attestation - Attestation I have personally seen and examined this patient.: Yes I have fully participated in the care of the patient.: Yes I have reviewed all pertinent clinical information: Yes
[2017-02-17 03:24] LABS: BASO # 0.1 K/uL (0.0-0.2); BASO % 0.5 % (0.0-2.0); EOS # 0.3 K/uL (0.0-0.7); EOS % 2.9 % (0.0-4.0); LYMPH # 2.4 K/uL (1.0-4.3); LYMPH % 24.4 % (20.0-40.0); MEAN CELL VOLUME 86.8 fL (81.0-99.0); MEAN CORPUSCULAR HEMOGLOBIN 28.6 pg (27.0-31.0); MEAN PLATELET VOLUME 8.6 fL (7.2-11.7); MONO # 0.8 K/uL (0.0-0.8); MONO % 7.9 % (0.0-10.0); NEUT # 6.4 K/uL (1.8-7.0); NEUT % 64.3 % (50.0-75.0); RBC 3.83 Mil/uL (3.80-5.20); RED CELL DISTRIBUTION WIDTH 13.2 % (11.5-14.5); WHITE BLOOD COUNT 9.9 K/uL (4.8-10.8)
[2017-02-17 03:47] LABS: CK-MB 0.68 ng/mL (0.0-3.38); TROPONIN I 0.025 ng/mL (0.00-0.120)
[2017-02-17 04:54] LABS: ALB/GLOB RATIO 1.2 (1.0-2.1); ALBUMIN 3.5 g/dL (3.5-5.0)
--- NOTE | 2017-02-17 08:30 | RAD ---
Chest x-ray single frontal view History: Congestive heart failure. Comparison: 01/27/2017 Findings: Mild venous congestion. Mild cardiomegaly. Tortuous ectatic aorta. Impression: Mild venous congestion with mild cardiomegaly suggestive for mild congestive heart failure
[2017-02-17 09:13] LABS: CK-MB 0.62 ng/mL (0.0-3.38); TROPONIN I 0.03 ng/mL (0.00-0.120)
--- NOTE | 2017-02-17 09:18 | CP.PCM.PN ---
Subjective - Date & Time of Evaluation Date of Evaluation: 02/17/17 Time of Evaluation: 09:13 - Subjective Subjective: PGY-[address] Escalera. No acute events overnight noted. She was getting hemodialysis during examination. She did not have any complaints. She said her shortness of breath was better. Her only complaint today was fatigue. She denied cp, abdominal pain , f/c, n/v/d/c. Objective - Vital Signs/Intake and Output Vital Signs (last 24 hours): Temp Pulse Resp BP Pulse Ox 98 F 84 14 181/105 H 100 02/16/17 18:36 02/17/17 07:48 02/17/17 07:48 02/17/17 07:48 02/17/17 07:48 - Medications Medications: Current Medications Acetaminophen (Tylenol 325mg Tab) 650 mg PO Q6 PRN PRN Reason: pain, fever Amlodipine Besylate (Norvasc) 5 mg PO DAILY [facility] Famotidine (Pepcid) 20 mg PO DAILY [facility] Heparin Sodium (Porcine) (Heparin) 5,000 units SC Q8 [facility] - Labs Labs: 02/17/17 03:18 02/17/17 03:18 PT 11.4 SECONDS (9.7-12.2) 02/16/17 19:47 INR 1.0 02/16/17 19:47 APTT 33 SECONDS (21-34) 02/16/17 19:47 - Additional Findings Additional findings: - Constitutional Appears: No Acute Distress - Head Exam Head Exam: ATRAUMATIC, NORMOCEPHALIC - Eye Exam Eye Exam: EOMI, PERRL - ENT Exam ENT Exam: Mucous Membranes Moist - Respiratory Exam Respiratory Exam: Clear to Auscultation Bilateral, NORMAL BREATHING PATTERN. absent: Rales, Rhonchi, Wheezes - Cardiovascular Exam Cardiovascular Exam: REGULAR RHYTHM, +S1, +S2. absent: Bradycardia, Tachycardia , Systolic Murmur - GI/Abdominal Exam GI & Abdominal Exam: Normal Bowel Sounds, Soft. absent: Distended, Tenderness - Extremities Exam Extremities exam: Positive for: pedal pulses present. Negative for: pedal edema , tenderness - Back Exam Back exam: absent: CVA tenderness (L), CVA tenderness (R) - Neurological Exam Neurological exam: Alert, CN II-XII Intact, Oriented x3 - Psychiatric Exam Psychiatric exam: Normal Affect, Normal Mood - Skin Skin Exam: Dry, Warm Assessment and Plan - Assessment and Plan (Free Text) Assessment: ESRD Hx of autosomal dominant polycystic kidney disease and end stage renal disease Dr. Birch nephrology consult, help appreciated Normally has , , schedule Last dialysis Friday of last week Dialysis ordered for today 02/17/17 Dialysis scheduled for tomorrow 02/18/17 - Dr Perales believes this will help her control her BP HTN Likely exacerbated by missing HD sessions Con't home med Norvasc 5mg PO QD Chest Pain EKG NSR Troponins negative x3 Elevated TSH TSH 5.7 Free T4 0.82 (Low-Normal) Prophylactic Measure Pepcid 20 mg PO daily SCDs, Heparin 5000u SC TID Renal dialysis diet Restarted home Norvasc
[2017-02-17] MEDS: Sodium Chloride Nasal 0.65% Soln (30ml) NAS SCH ×2 (20:41→22:33)
[2017-02-17 22:04] LABS: CK-MB 0.49 ng/mL (0.0-3.38); TROPONIN I 0.027 ng/mL (0.00-0.120)
--- NOTE | 2017-02-18 00:04 | CARD ---
APPROVED REPORT EKG Measurement Heart [id number] <Conclusion> Normal sinus rhythm Possible Left atrial enlargement Low voltage QRS Septal infarct, age undetermined Inferior infarct, age undetermined Abnormal ECG
--- NOTE | 2017-02-18 01:40 | CON ---
DATE: NEPHROLOGY CONSULTATION HISTORY OF PRESENT ILLNESS: A 51-year-old female with past medical history of hypertension, polycystic kidney disease (ADPKD), and ESRD on hemodialysis, presented to ED overnight with shortness of breath after not having dialysis since previous 6 days. The patient admitted with hyperkalemia and acute decompensated CHF. Nephrology being consulted for ESRD care. The patient reports last dialysis session was 6 days ago at [facility] ([facility] She has had 5 dialysis sessions in the past 3 weeks since last being admitted at [facility] in mid-January 2017 with similar complaints. The patient is visiting from [place] where she receives hemodialysis 3 days a week via left arm AV fistula. The patient reports having developed shortness of breath lately; also reports chest pain and palpitations. The patient is also reporting headache and neck pain. The patient urinates about 3/4th cup per day; reports having dysuria lately. The patient has not been taking any medications lately. PAST MEDICAL HISTORY: As above. SOCIAL HISTORY: Never smoked. FAMILY HISTORY: Mother with history of intracranial hemorrhage. REVIEW OF SYSTEMS: CONSTITUTIONAL: Reports slight weight loss over the past one plus month, reports chills and night sweats lately. HEENT: Reports visual disturbance lately. Neck pain lately. RESPIRATORY: Shortness of breath lately. CARDIOVASCULAR: As per HPI. GASTROINTESTINAL: Denies nausea, vomiting, or diarrhea. Admits to constipation. GENITOURINARY: As per HPI. MUSCULOSKELETAL: Reports right arm and shoulder pain, takes meloxicam 4 tablets per day as well as Tylenol. SKIN: Reports generalized pruritus. NEUROLOGIC: Admits to headaches. PHYSICAL EXAMINATION: VITAL SIGNS: This morning, blood pressure 197/116, heart rate 87, respirations 16, temperature 98, O2 sat 98% on room air. GENERAL: The patient examined on hemodialysis, in no distress. Conversing coherently in full sentences. HEENT: Moist mucous membranes. NECK: No cervical lymphadenopathy. RESPIRATORY: Lungs clear to auscultation bilaterally. No rales, no rhonchi, no wheezes. CARDIOVASCULAR: Heart sounds S1, S2 normal. No murmurs, no gallops, no rubs. GASTROINTESTINAL: Abdomen soft, nontender, nondistended. GENITOURINARY: No bladder distention. EXTREMITIES: No appreciable leg edema. SKIN: Warm. No cyanosis. PSYCHIATRIC: Normal mood, normal affect. NEUROLOGIC: 2/4 brachioradialis reflex. LABORATORY DATA: This morning; CBC; WBC 9.9, hemoglobin 11.0, hematocrit 33.2, platelets 230. Chemistry panel: Sodium 132, potassium 5.5, chloride 91, bicarb 24, BUN 75, creatinine 16.6, glucose 93, calcium 9.0, albumin 3.5. TSH 5.0, free T4 0.82. Chest x-ray: Pulmonary venous congestion noted. ASSESSMENT AND PLAN: 1. End-stage renal disease on hemodialysis. The patient has overall been under-dialyzed lately. Mild hyperkalemia and congestive heart failure noted. Dialyzing urgently on 2K - 2.5 calcium - 32 bicarbonate dialysate over 3.5 hours with 3 L net ultrafiltration. We will plan for additional hemodialysis session tomorrow. 2. Acute decompensated congestive heart failure, preserved ejection fraction per previous echo. Volume overloaded in the setting of end-stage renal disease as well as not taking blood pressure medications. Will benefit from ultrafiltration on hemodialysis. Needs adequate blood pressure control, as patient does have diastolic dysfunction as mentioned on previous echo. 3. Hypertensive emergency with acute decompensated congestive heart failure as mentioned above. Blood pressure is extremely elevated. Should improve with ultrafiltration. Recommend to continue Norvasc 5 mg daily. Will benefit from additional hemodialysis session tomorrow. 4. Autosomal dominant polycystic kidney disease. The patient with history of mother having intracranial hemorrhage. CTA done last month showed small circular intracranial aneurysms. The patient needs to follow up with her care providers in her country to assess for any increase in size of aneurysms periodically. The patient will benefit from aggressive blood pressure control. Recommend her to keep BP less than 130/80. 5. Right shoulder pain. The patient is taking nonsteroidal anti-inflammatory drugs regularly. Cautioned that this will increase her blood pressure, which should be avoided. The patient should try to adhere to Tylenol; can take 500 to 1000 mg 2 to 3 times per day as needed. 6. Chronic kidney disease, mineral bone disorder. Markedly elevated parathyroid hormone level secondary to end-stage renal disease. Last PTH from January 28, 2017 showed PTH level of 1485. The patient is not currently on any medications to suppress PTH. We will start calcitriol 0.25 mcg daily. Thank you for this consult. We will continue to follow the patient. Adan Birch MD [facility] # [id number]
[2017-02-18] MEDS ORDERED: Tramadol 25 mg PO ONE (06:19)
[2017-02-18 06:53] LABS: BASO % 0.7 % (0.0-2.0); EOS # 0.2 K/uL (0.0-0.7); EOS % 2.7 % (0.0-4.0); HEMOGLOBIN 11.4 g/dL (11.0-16.0); LYMPH # 2.1 K/uL (1.0-4.3); LYMPH % 28.9 % (20.0-40.0); MEAN CELL VOLUME 87.8 fL (81.0-99.0); MEAN CORPUSCULAR HEMOGLOBIN 28.1 pg (27.0-31.0); MEAN PLATELET VOLUME 8.7 fL (7.2-11.7); MONO # 0.7 K/uL (0.0-0.8); MONO % 9.3 % (0.0-10.0); NEUT # 4.2 K/uL (1.8-7.0); NEUT % 58.4 % (50.0-75.0); RBC 4.03 Mil/uL (3.80-5.20); RED CELL DISTRIBUTION WIDTH 13.5 % (11.5-14.5); WHITE BLOOD COUNT 7.2 K/uL (4.8-10.8)
[2017-02-18 08:30] LABS: ALB/GLOB RATIO 1.2 (1.0-2.1); ALBUMIN 3.5 g/dL (3.5-5.0); CALCIUM 8.9 mg/dl (8.6-10.4)
[2017-02-18] MEDS ORDERED: Oxycodone/Acetaminophen 5/325 mg Tab PO ONE (09:08)
[2017-02-18] MEDS: Sodium Chloride Nasal 0.65% Soln (30ml) NAS SCH ×2 (10:16→15:37)
--- NOTE | 2017-02-18 15:23 | CP.PCM.DIS ---
Provider - Provider Date of Admission: 02/16/17 20:38 Attending physician: Aaron Sung MD Primary care physician: PMD: In [place] Consults: Helicopter Mechanic: Dr Birch Time Spent in preparation of Discharge (in minutes): 45 Hospital Course - Lab Results Lab Results: Most Recent Lab Values WBC 7.2 K/uL (4.8-10.8) 02/18/17 06:45 RBC 4.03 Mil/uL (3.80-5.20) 02/18/17 06:45 Hgb 11.4 g/dL (11.0-16.0) 02/18/17 06:45 Hct 35.4 % (34.0-47.0) 02/18/17 06:45 MCV 87.8 fL (81.0-99.0) 02/18/17 06:45 MCH 28.1 pg (27.0-31.0) 02/18/17 06:45 MCHC 32.0 g/dL (33.0-37.0) L 02/18/17 06:45 RDW 13.5 % (11.5-14.5) 02/18/17 06:45 Plt Count 209 K/uL (130-400) 02/18/17 06:45 MPV 8.7 fL (7.2-11.7) 02/18/17 06:45 Neut % (Auto) 58.4 % (50.0-75.0) 02/18/17 06:45 Lymph % (Auto) 28.9 % (20.0-40.0) 02/18/17 06:45 [place] % (Auto) 9.3 % (0.0-10.0) 02/18/17 06:45 Eos % (Auto) 2.7 % (0.0-4.0) 02/18/17 06:45 Baso % (Auto) 0.7 % (0.0-2.0) 02/18/17 06:45 Neut # 4.2 K/uL (1.8-7.0) 02/18/17 06:45 Lymph # 2.1 K/uL (1.0-4.3) 02/18/17 06:45 [place] # 0.7 K/uL (0.0-0.8) 02/18/17 06:45 Eos # 0.2 K/uL (0.0-0.7) 02/18/17 06:45 Baso # 0.0 K/uL (0.0-0.2) 02/18/17 06:45 PT 11.4 SECONDS (9.7-12.2) 02/16/17 19:47 INR 1.0 02/16/17 19:47 APTT 33 SECONDS (21-34) 02/16/17 19:47 Sodium 133 mmol/L (132-148) 02/18/17 06:45 Potassium 4.4 mmol/L (3.6-5.2) 02/18/17 06:45 Chloride 93 mmol/L (98-107) L 02/18/17 06:45 Carbon Dioxide 28 mmol/L (22-30) 02/18/17 06:45 Anion Gap 15 (10-20) 02/18/17 06:45 BUN 37 mg/dL (7-17) H 02/18/17 06:45 Creatinine 10.2 mg/dL (0.7-1.2) H* D 02/18/17 06:45 Est GFR ( Amer) 5 02/18/17 06:45 Est GFR (Non-Af Amer) 4 02/18/17 06:45 Random Glucose 89 mg/dL (65-105) 02/18/17 06:45 Calcium 8.9 mg/dl (8.6-10.4) 02/18/17 06:45 Phosphorus 5.3 mg/dL (2.5-4.5) H 02/18/17 06:45 Total Bilirubin 0.6 mg/dL (0.2-1.3) 02/18/17 06:45 AST 19 U/L (14-36) 02/18/17 06:45 ALT 23 U/L (9-52) 02/18/17 06:45 Alkaline Phosphatase 322 U/L (38-126) H 02/18/17 06:45 Total Creatine Kinase 21 U/L (30-135) L 02/17/17 21:32 CK-MB (Mass) 0.49 ng/mL (0.0-3.38) 02/17/17 21:32 Troponin I 0.0270 ng/mL (0.00-0.120) 02/17/17 21:32 NT-Pro-B Natriuret Pep 6050 pg/mL (0-900) H 02/16/17 19:47 Total Protein 6.5 g/dL (6.3-8.3) 02/18/17 06:45 Albumin 3.5 g/dL (3.5-5.0) 02/18/17 06:45 Globulin 3.0 gm/dL (2.2-3.9) 02/18/17 06:45 Albumin/Globulin Ratio 1.2 (1.0-2.1) 02/18/17 06:45 Free T4 0.82 ng/dL (0.78-2.19) 02/17/17 08:16 TSH 3rd Generation 5.70 mIU/L (0.46-4.68) H 02/17/17 03:18 - Hospital Course Hospital Course: PGY-1 H&P for Dr. Sung CC: chest pain This is a 51 year old female with PMHx autosomal dominant polycystic kidney disease and end stage renal disease who presents to the ED complaining of dull chest pressure. It began last night and has been intermittent. Patient does not recall any exacerbating or relieving factors, but states that she feels worse when she lays flat. Patient states that she is also a little bit short of breath which is usual when she does not receive dialysis. Patient also complaining of associated palpitations intermittently. Patient states that she has not had dialysis since Friday of last week. Patient is visiting from the [facility] where she is regularly scheduled for dialysis , , . Patient is unable to follow up with a telephony engineer since she is visiting this country and expects to return on February 20. PMHx: PCKD, ESRD PSHx: fibroma in 2001, appendectomy, hysterectomy Allergies: aspirin (anaphylactic) Social: denies tobacco, alcohol, and drug use Family Hx: Mother- ESRD/dialysis, renal cysts, DM, HTN; Aunt/Uncle- " from renal problems" Medications: [facility] COURSE: Mrs Cook is visiting from her home country of [facility] and was admitting because she began having symptoms related to her missed hemodialysis sessions. Helicopter Mechanic, Dr Perales, was consulted. She had a round of HD on . However, due to her elevated BP, the telephony engineer recommended another round of HD which she had on 02/18/17. The telephony engineer also gave her calcitriol 0.5mcg. She was also given Norvasc 5mg and Enalapril 20mg to help control her BP. By discharge she had normal blood pressure. She also had chest pain - EKG was normal and her troponins were negative x3. Based on her lab work she might have hypothyroidism as her free T4 is in the low-normal range. She was advised to follow-up with her PMD in the [facility]. Her right shoulder pain was treated with tylenol. I've included the latest progress note below: ESRD Hx of autosomal dominant polycystic kidney disease and end stage renal disease Dr. Birch nephrology consult, help appreciated Normally has , , schedule Last dialysis Friday of last week Dialysis ordered for today 02/17/17 Dialysis scheduled for tomorrow 02/18/17 - Dr Perales believes this will help her control her BP HTN Likely exacerbated by missing HD sessions Con't home med Norvasc 5mg PO QD Chest Pain EKG NSR Troponins negative x3 Elevated TSH TSH 5.7 Free T4 0.82 (Low-Normal) Prophylactic Measure Pepcid 20 mg PO daily SCD[facility], Heparin 5000u SC TID Renal dialysis diet Restarted home Norvasc Discharge Exam - Head Exam Head Exam: ATRAUMATIC, NORMOCEPHALIC - Additional Findings Additional findings: - Constitutional Appears: No Acute Distress - Head Exam Head Exam: ATRAUMATIC, NORMOCEPHALIC - Eye Exam Eye Exam: EOMI, PERRL - ENT Exam ENT Exam: Mucous Membranes Moist - Respiratory Exam Respiratory Exam: Clear to Auscultation Bilateral, NORMAL BREATHING PATTERN. absent: Rales, Rhonchi, Wheezes - Cardiovascular Exam Cardiovascular Exam: REGULAR RHYTHM, +S1, +S2. absent: Bradycardia, Tachycardia , Systolic Murmur - GI/Abdominal Exam GI & Abdominal Exam: Normal Bowel Sounds, Soft. absent: Distended, Tenderness - Extremities Exam Extremities exam: Positive for: pedal pulses present. Negative for: pedal edema , tenderness - Back Exam Back exam: absent: CVA tenderness (L), CVA tenderness (R) - Neurological Exam Neurological exam: Alert, CN II-XII Intact, Oriented x3 - Psychiatric Exam Psychiatric exam: Normal Affect, Normal Mood - Skin Skin Exam: Dry, Warm Discharge Plan - Discharge Medications Prescriptions: amLODIPine [Norvasc] 5 mg PO DAILY #30 tab Calcium Acetate [Phoslo] 667 mg PO TID #90 tab Lisinopril [Zestril] 20 mg PO DAILY 30 Days #30 tab - Follow Up Plan Condition: GOOD Disposition: HOME/ ROUTINE Instructions: Renal Failure Diet (DC) Additional Instructions: Patient is medically stable for discharge. Patient will be discharged with scripts for the following medications to be taken as prescribed: 1. amlodipine 5mg 1 tablet once a day in the morning (this is to treat high blood pressure) 2. Lisinopril 20mg 1 tablet once a day in the morning (this is to treat high blood pressure) 3. Phoslo 667mg 1 tablet with breakfast, lunch and dinner (this is to keep your electrolytes within normal levels) Please monitor your blood pressure at home. If the blood pressure is below 120/ 80 then do not take your blood pressure medication that day. Please follow-up with your PMD in the [place] regarding your Thyroid Function as your labs indicate that you might have Hypothyroidism. Please follow-up with you PMD regarding your high blood pressure - he may tailor your BP medication schedule depending on your blood pressure levels. Please follow-up with your Kidney Doctor in the [place] regarding your Hemodialysis sessions and follow his advice regarding scheduling. Please take an over the counter nasal spray such as OceanMist to treat your sinusitis. You may also take an over the counter Rufina to treat your sinusitis. This will also help alleviate your headaches. If symptoms worsen or return, please return to the ER.
[2017-02-18 16:20] VITALS: BP 155/98; PULSE 98; RESP 20; TEMP 98.3; O2SAT 98
--- NOTE | 2017-02-18 18:47 | CP.PCM.PN ---
Objective - Vital Signs/Intake and Output Vital Signs (last 24 hours): Temp Pulse Resp BP Pulse Ox 98.3 F 98 H 20 155/98 H 98 02/18/17 15:19 02/18/17 15:19 02/18/17 15:19 02/18/17 15:19 02/18/17 15:19 Intake and Output: 02/18/17 02/18/17 06:59 18:59 Intake Total 60 Balance 60 - Medications Medications: Current Medications Acetaminophen (Tylenol 325mg Tab) 650 mg PO Q6 PRN PRN Reason: pain, fever Last Admin: 02/18/17 05:04 Dose: 650 mg Amlodipine Besylate (Norvasc) 10 mg PO DAILY [facility] Calcitriol (Rocaltrol) 0.5 mcg PO DAILY [facility] Last Admin: 02/18/17 15:38 Dose: Not Given Famotidine (Pepcid) 20 mg PO DAILY [facility] Last Admin: 02/18/17 15:37 Dose: Not Given Heparin Sodium (Porcine) (Heparin) 5,000 units SC Q8 [facility] Last Admin: 02/18/17 15:37 Dose: Not Given Lisinopril (Zestril) 20 mg PO DAILY [facility] Sodium Chloride (Castine Baby Saline 30 Ml) 0 ml [place] QID [facility] Last Admin: 02/18/17 15:37 Dose: Not Given - Labs Labs: 02/18/17 06:45 02/18/17 06:45 PT 11.4 SECONDS (9.7-12.2) 02/16/17 19:47 INR 1.0 02/16/17 19:47 APTT 33 SECONDS (21-34) 02/16/17 19:47
--- NOTE | 2017-02-19 10:26 | CARD ---
APPROVED REPORT EKG Measurement Heart [id number] <Conclusion> Normal sinus rhythm Inferior infarct, age undetermined Anteroseptal infarct, age undetermined Abnormal ECG
--- NOTE | 2017-02-19 23:19 | CARD ---
APPROVED REPORT EKG Measurement Heart [id number] <Conclusion> Normal sinus rhythm Septal infarct, age undetermined Inferior infarct, age undetermined Abnormal ECG
--- NOTE | 2017-02-19 23:21 | CARD ---
APPROVED REPORT EKG Measurement Heart [id number] <Conclusion> Normal sinus rhythm Septal infarct, age undetermined Inferior infarct, age undetermined Abnormal ECG
== END 2017-02-18 19:00 | disposition home or self-care (01) | DRG 291 ==
LOC: C.ER 18:17 → C.9E 20:38 → C.6T 02-17 14:17
PROVIDERS: ADMIT Family Medicine; ATTEND Family Medicine
PROC: 5A1D70Z Performance of Urinary Filtration, Intermittent, Less than 6 Hours Per Day (ICD-10-PCS; principal; 2017-02-16)
DX: I13.2 Hypertensive heart and chronic kidney disease with heart failure and with stage 5 chronic kidney disease, or end stage renal disease (principal); I50.33 Acute on chronic diastolic (congestive) heart failure; I67.1 Cerebral aneurysm, nonruptured; N18.6 End stage renal disease; E87.5 Hyperkalemia; I16.1 Hypertensive emergency; Q61.2 Polycystic kidney, adult type; M89.9 Disorder of bone, unspecified; Z91.15 Patient's noncompliance with renal dialysis; Z99.2 Dependence on renal dialysis